=== PATIENT | female | born 1930 | race Caucasian/White ===

== ENCOUNTER 2016-12-19 12:05 | Inpatient (IN) | payer MEDICARE, MEDICAID ==
[~2016-12-19] VITALS: Ht 157.5 cm; Wt 72.2 kg
[2016-12-19 12:08] VITALS: BP 135/38; PULSE 58; RESP 28; O2SAT 93
--- NOTE | 2016-12-19 12:11 | ED.REPORT ---
HPI-General Illness Date of Service December 19, 2016 ED Provider: Ryan Montiel DO Pt is an 86 year old female presenting to the ED via EMS from [facility] due to altered mental status. Associated symptoms include fever, bilateral hand trembling, anxiety, abdominal pain. Nursing Notes Stated Complaint: ALTERED MENTAL STATUS Chief Complaint: General Complaint Nursing Notes Reviewed: Yes Allergies: Uncoded Allergies: PENICILLIN (Allergy, Mild, rash, 12/19/16) Scheduled Acetaminophen (Acetaminophen) 500 Mg Tablet 500 MG PO BID Aspirin (Aspirin) 81 Mg Tablet 81 MG PO DAILY Cholecalciferol (Vitamin D3) (Vitamin D3) 2,000 Unit Tablet 2,000 UNIT PO DAILYWL Cholestyramine (Questran Powder) 378 Gm Powd 9 GM PO DAILY Fluoxetine (Fluoxetine) 40 Mg Capsule 80 MG PO DAILY Latanoprost (Latanoprost) 2.5 Ml Drops 1 GTT BOTH_EYES HS Metoprolol Succinate ER (Metoprolol Succinate ER) 50 Mg Tab.er.24h 50 MG PO DAILY Nitrofurantoin Macrocrystal (Nitrofurantoin Macrocrystal) 50 Mg Capsule 50 MG PO QID Olanzapine (Olanzapine) 20 Mg Tablet 10 MG PO DAILY Olanzapine (Olanzapine) 10 Mg Tablet 5 MG PO BID Potassium Chloride (Potassium Chloride) 10 Meq Tab.er.prt 10 MEQ PO DAILY TAKE WITH FOOD Scheduled PRN Acetaminophen (Acetaminophen) 325 Mg Capsule 650 MG PO Q4H PRN PRN For Pain Furosemide (Furosemide) 20 Mg Tab 20 MG PO DAILY PRN PRN For HYPERtension Lorazepam (Lorazepam Oral Concentrate) 2 Mg/1 Ml Oral.conc 0.25-2 MG PO QID PRN PRN For Anxiety Miscellaneous Medications Lactobacillus Combo No.11 (Probiotic) 1 Each Cap.sprink 1 EACH PO General Time Seen by MD: 12:10 Chief Complaint Altered mental status Hx Obtained From: Patient, EMS Unable to Obtain Hx: Mental status Arrived By: Ambulance Sudden in Onset?: Yes Onset Occurred: Just prior to arrival Symptom Duration: Since onset Location: : Abdomen Quality: Painful Severity: Current: Mild Severity: Maximum: Mild Recent Healthcare: No recent doctor visit, No recent hospitalization Similar Sx Previous: Yes Past Medical History Past Medical History Dementia with anxiety, recurrent UTIs, HTN, glaucoma Past Surgical History unknown Smoking History Unknown if Ever Smoker Ambulatory Status Independent Review of Systems Unable to Obtain ROS Mental status Full Review of Systems Constitutional: Reports: Fever GI: Reports: Abdominal pain Neurologic: Reports: Shaking Psychiatric: Reports: Anxiety Physical Exam Vital Signs Vital Signs Date Time Temp Pulse Resp B/P Pulse Ox O2 Delivery O2 Flow Rate FiO2 12/19/16 12:34 103 18 118/71 97 12/19/16 12:08 36.6 58 28 135/38 93 Room Air Initial VS: Reviewed Head / Eyes: Atraumatic, Normocephalic, PERRL ENT: Mucous membranes moist, Conjunctiva normal, No scleral icterus Neck: Supple, Non-tender, Full range of motion Respiratory: Breath sounds normal, Clear to auscultation, No respiratory distress Extremities: Vascular intact, Neuro intact, No swelling, No tenderness Skin: Warm, Dry, No cyanosis General/Constitutional: Awake Slightly pale Cardiovascular: Heart rate NL Heart Rate / Rhythm: Positive: Irregular rhythm Abdomen: Soft, Non-tender, No guarding, No rebound Bowel Sounds / Distention: Positive: Distention mild Post surgical scars Psychiatric: Affect NL, Mood NL, Not suicidal, Not homicidal, No hallucinations Abnormal Thinking / Perception: Positive: Confused Tremulous and fearful. Interpretation & Diagnostics Lab Results Interpretation Result Diagram: 12/19/16 1220 12/19/16 1220 Test 12/19/16 12:20 12/19/16 12:28 White Blood Count 14.9th/mm3 (3.8-10.1) Red Blood Count 4.07mil/mm3 (3.90-5.20) Hemoglobin 12.3g/dL (12.0-15.6) Hematocrit 37.3% (35.0-46.0) Mean Corpuscular Volume 91.6fL (81-100) Mean Corpuscular Hemoglobin 30.2pg (27.0-35.0) Mean Corpuscular Hemoglobin Concent 33.0% (32.0-37.0) Red Cell Distribution Width 14.2% (12.3-15.4) Platelet Count 266bil/L (150-400) Neutrophils (%) (Auto) 90.5% (40-74) Lymphocytes (%) (Auto) 4.5% (14-46) Monocytes (%) (Auto) 4.3% (4-12) Eosinophils (%) (Auto) 0.3% (0-5) Basophils (%) (Auto) 0.1% (0-3) Sodium Level 139mEq/L (134-144) Potassium Level 3.3mEq/L (3.5-5.2) Chloride Level 100mEq/L (97-108) Carbon Dioxide Level 22mmol/L (18-29) Blood Urea Nitrogen 18mg/dL (8-27) Creatinine 0.69mg/dL (0.57-1.00) Estimat Glomerular Filtration Rate 116mL/min (>59) Glucose Level 122mg/dL (60-99) Lactic Acid Level 1.1mmol/L (0.4-2.0) Calcium Level 9.6mg/dL (8.5-10.1) Magnesium Level 2.0mg/dL (1.6-2.6) Total Bilirubin 0.6mg/dL (0.0-1.2) Aspartate Amino Transf (AST/SGOT) 14U/L (0-50) Alanine Aminotransferase (ALT/SGPT) 13U/L (0-32) Alkaline Phosphatase 63U/L (25-165) Total Protein 7.5g/dL (6.4-8.4) Albumin 4.0g/dL (3.4-5.0) Procalcitonin 0.06ng/mL (0.00-0.08) Hold Richard Top Tube Received (Received) Urine Color Straw (YELLOW) Urine Appearance Turbid (CLEAR,HAZY) Urine pH 7.5 (5.0-8.0) Urine Specific Gamaliel 1.020 (1.003-1.035) Urine Protein 30mg/dL (NEG,TRACE) Urine Glucose (UA) Negativemg/dL (NEGATIVE) Urine Ketones 15mg/dL (NEGATIVE) Urine Occult Blood Moderate (NEGATIVE) Urine Nitrite Positive (NEGATIVE) Urine Bilirubin Negative (NEGATIVE) Urine Urobilinogen Normalmg/dL (NORMAL) Urine Leukocyte Esterase Large (NEGATIVE) Urine RBC 0-2/hpf (0-2) Urine WBC >50/hpf (0-5) Urine Epithelial Cells Occasional/hpf (NONE-MOD) Urine Crystals Triple phosphate Urine Bacteria Many/hpf (NONE-FEW) Urine Hyaline Casts None/lpf (NONE) Urine Granular Casts None seen (NONE SEEN) Urine Waxy Casts None seen (NONE SEEN) Urine Red Blood Cell Casts None seen (NONE SEEN) Urine White Blood Cell Casts None seen (NONE SEEN) Urine Mucus Present (None Seen) Urine Trichomonas None seen (NONE SEEN) Urine Yeast None (NONE SEEN) Urinalysis Comment None Urine Culture Reflexed Indicated ECG Interpretation ECG Interpretation: PACs, nonspecific ST changes. Time: 12:59 Interpreted by: ED physician Normal ECG Interpretation: Normal rate (84), Normal sinus rhythm X-Ray Chest Interpretation Chest Xray Interpretation: IMPRESSION: 1. Cardiomegaly and mild vascular congestion. Please correlate for pulmonary edema. 2. Bibasilar infiltrates (right more than left) may represent atelectasis or developing pneumonia. Aspiration cannot be excluded. Dictated by: Gurmeet Moralez M.D. on 12/19/2016 at 12:23 View: Portable, 1 view Interpretation / Wet Read by: Interpret - Radiologist Re-Eval/Medical Decision Med Decision/Clinical Course Concern for UTI and some sepsis findings. She has leukocytosis and tachycardia. No x-ray looks more like pulmonary edema and her daughter denies that she has had cough or sputum symptoms. Rocephin and azithromycin given after blood cultures. Patient will be admitted. Time of Eval: 14:00 Patient Status: Condition improved Re-Evaluation/Progress Note: Discussed plan for admission. Spoke to daughter and she agrees with plan. Also daughter states she has not seen or heard any signs of pneumonia such as cough or sputum and she frequently visits her mother. Consultation : Referral / Consult Name: Raul Dickey DO Consulted With: Hospitalist Call Returned at: 14:00 Concrete Inspector: Will see patient, Agrees with plan, Accepts admit Counseled Regarding: Diagnosis, Lab results, Need for follow-up, When/why to return to ED Discharge & Departure Primary Impression: Bladder infection Disposition: ADMITTED TO HOSPITAL (ERASED) Discharge Condition All VS Reviewed: Yes Condition: Improved Referrals: Gris Martino (PCP) Corey Attestation Portions of this note were transcribed by Alice White. I, Dr. Montiel personally performed the history, physical exam and medical decision-making; I reviewed and confirmed the accuracy of the information in the transcribed note. Signed by: Corey Villalobos, 12/19/2016 at 1400. copies to: Gris Martino Timothy S DO December 19, 2016 12:11 ALICE WHITE December 19, 2016 12:20
[2016-12-19 12:34] VITALS: BP 118/71; PULSE 103; RESP 18; O2SAT 97
[2016-12-19 12:39] LABS: BASOPHILS % (AUTO) 0.1 % (0-3); EOSINOPHILS % (AUTO) 0.3 % (0-5); MONOCYTES % (AUTO) 4.3 % (4-12); Mean Corpuscular Hemoglobin 30.2 pg (27.0-35.0); Mean Corpuscular Volume 91.6 fL (81-100); NEUTROPHILS % (AUTO) 90.5 % (40-74); Platelet Count 266 bil/L (150-400)
[2016-12-19] MEDS ORDERED: 0.9% Sodium Chloride 1,000 ML IV ONE (12:40)
[2016-12-19] MEDS ORDERED: OLANZapine Zydis ODT 5 mg Tablet PO ONE (12:45)
[2016-12-19 12:49] LABS: APPEARANCE,URINE TURBID (CLEAR,HAZY); COLOR,URINE STRAW (YELLOW); OCCULT BLOOD,URINE MODERATE (NEGATIVE); PH,URINE 7.5 (5.0-8.0); UROBILINOGEN,URINE NORMAL (NORMAL)
[2016-12-19] MEDS ORDERED: cefTRIAXone Inj 2,000 MG in Dextrose 5% Minibag Plus 50 ML IV ONE (12:55)
--- NOTE | 2016-12-19 13:26 | DRSVH ---
PROCEDURE: X-RAY CHEST ONE VIEW, PORTABLE ([id number]) INDICATIONS: hypoxia, AMS TECHNIQUE: One view of the chest was acquired. COMPARISON: None. FINDINGS: Surgical changes and devices: Prior median sternotomy changes are present. Lungs and pleura: Bibasilar infiltrates are evident (right greater than left). The pulmonary vascula ture may be slightly increased. No large effusion or pneumothorax. Mediastinum: Mediastinal contours appear normal. Heart size is mildly enlarged. There is aortic at herosclerosis. Bones and chest wall: No suspicious bony lesions. Overlying soft tissues appear unremarkable. IMPRESSION: 1. Cardiomegaly and mild vascular congestion. Please correlate for pulmonary edema. 2. Bibasilar infiltrates (right more than left) may represent atelectasis or developing pneumonia. Aspiration cannot be excluded. Dictated by: Gurmeet Moralez M.D. on 12/19/2016 at 12:23 Approved by: Gurmeet Moralez M.D. on 12/19/2016 at 12:24
[2016-12-19] MEDS ORDERED: Azithromycin Inj 500 MG in Dextrose 5% w/Vial Mate 250 ML IV ONE (13:40)
[2016-12-19] MEDS ORDERED: NITR50CA PO (14:00)
[2016-12-19] MEDS ORDERED: LATA2.5D6 BOTH_EYES (14:00)
[2016-12-19] MEDS ORDERED: ACET-171 PO (14:00)
[2016-12-19] MEDS ORDERED: OLAN20TA16 PO (14:00)
[2016-12-19] MEDS ORDERED: CHOL200025 PO (14:00)
[2016-12-19] MEDS ORDERED: METO-272 PO (14:00)
[2016-12-19] MEDS ORDERED: ACET325C PO (14:00)
[2016-12-19] MEDS ORDERED: LORA2ORA4 PO (14:00)
[2016-12-19] MEDS ORDERED: FLUO40CA PO (14:00)
[2016-12-19] MEDS ORDERED: ASPI-973 PO (14:00)
[2016-12-19] MEDS ORDERED: OLAN10TA19 PO (14:00)
[2016-12-19] MEDS ORDERED: LACT1CAP73 PO (14:00)
[2016-12-19] MEDS ORDERED: FUR20 PO (14:00)
[2016-12-19] MEDS ORDERED: CHLS378PW PO (14:00)
[2016-12-19] MEDS ORDERED: POTA10TA38 PO (14:00)
[2016-12-19] MEDS ORDERED: Polyethylene Glycol (PEG) 17 Gm Powder PO PRN (14:05)
[2016-12-19] MEDS ORDERED: Alum-Mag Hydrox-Simeth 30 mL Suspension PO PRN (14:05)
[2016-12-19] MEDS ORDERED: Ondansetron 2 mg/mL 2 mL Inj IVPUSH PRN (14:05)
[2016-12-19 14:17] VITALS: BP 122/68; PULSE 73; RESP 18; O2SAT 96
[2016-12-19 14:42] VITALS: BP 154/80; PULSE 55; RESP 19; O2SAT 95
[2016-12-19] MEDS: 0.9% Sodium Chloride 1,000 ML IV SCH (15:09)
--- NOTE | 2016-12-19 15:30 | PCM.HPMED ---
Subjective Date of Service December 19, 2016 Primary Provider: Admitting Physician: Raul Dickey DO Primary Care Physician: Gris Martino Attending Physician: Raul Dickey DO Chief Complaint: Altered mentation History of Present Illness: 86-year-old female past medical history significant for end-stage dementia and recurrent urinary tract infections brought in by EMS from [facility] due to decline in mentation noted over the past few days and more acutely this morning. ER evaluation was significant for evidence of urinary tract infection with a mild leukocytosis prompting admission for further evaluation and treatment of presumed recurrent urinary tract infection. Patient is otherwise medically stable and placed on the hospital floor where my medical evaluation took place. Time of my exam she was accompanied by her daughter who provided the majority of history given patient's impaired cognitive function in the setting of dementia. The daughter notes her mother's decline has been actually a more prolonged process, the past 2 months especially she has been more anxious and demonstrated a decline in verbal functioning, now limited to only a few words much to express her cell phone previously she would have use complete sentences. She is been less involved with other residents of her prison, is involved with bingo and other group activities. Urinary tract infections of been a chronic problem for her mother for many years, and she is repeatedly been treated for them outpatient setting, currently taking Nitrofurantoin for prophylaxis which is apparently not been effective. My evaluation of patient is limited due to her dementia, she does deny any acute pain though she endorses feeling extremely anxious but cannot identify cause. She is tremulous, intermittently tearful, but other times can be calmed and appears relaxed. Review of Systems: Unable to conduct complete review of systems due to patient's underlying dementia Allergies Coded Allergies: strawberry (Verified Allergy, Unknown, Hives, 12/19/16) Uncoded Allergies: PENICILLIN (Allergy, Mild, rash, 12/19/16) Home Medications Pt is an 86 year old female presenting to the ED via EMS from [facility] due to altered mental status. Associated symptoms include fever, bilateral hand trembling, anxiety, abdominal pain. Nursing Notes Stated Complaint: ALTERED MENTAL STATUS Chief Complaint: General Complaint Nursing Notes Reviewed: Yes Allergies: Uncoded Allergies: PENICILLIN (Allergy, Mild, rash, 12/19/16) Scheduled Acetaminophen (Acetaminophen) 500 Mg Tablet 500 MG PO BID Aspirin (Aspirin) 81 Mg Tablet 81 MG PO DAILY Cholecalciferol (Vitamin D3) (Vitamin D3) 2,000 Unit Tablet 2,000 UNIT PO DAILYWL Cholestyramine (Questran Powder) 378 Gm Powd 9 GM PO DAILY Fluoxetine (Fluoxetine) 40 Mg Capsule 80 MG PO DAILY Latanoprost (Latanoprost) 2.5 Ml Drops 1 GTT BOTH_EYES HS Metoprolol Succinate ER (Metoprolol Succinate ER) 50 Mg Tab.er.24h 50 MG PO DAILY Nitrofurantoin Macrocrystal (Nitrofurantoin Macrocrystal) 50 Mg Capsule 50 MG PO QID Olanzapine (Olanzapine) 20 Mg Tablet 10 MG PO DAILY Olanzapine (Olanzapine) 10 Mg Tablet 5 MG PO BID Potassium Chloride (Potassium Chloride) 10 Meq Tab.er.prt 10 MEQ PO DAILY TAKE WITH FOOD Scheduled PRN Acetaminophen (Acetaminophen) 325 Mg Capsule 650 MG PO Q4H PRN PRN For Pain Furosemide (Furosemide) 20 Mg Tab 20 MG PO DAILY PRN PRN For HYPERtension Lorazepam (Lorazepam Oral Concentrate) 2 Mg/1 Ml Oral.conc 0.25-2 MG PO QID PRN PRN For Anxiety Miscellaneous Medications Lactobacillus Combo No.11 (Probiotic) 1 Each Cap.sprink 1 EACH PO PMH Dementia with anxiety, recurrent UTIs, HTN, Questionable congestive heart failure glaucoma Surgical History As per daughter: Heart valve transplant, atrial Bilateral hip transplant Appendectomy Possible cholecystectomy Exploratory laparoscopy for lysis of adhesions Family History Unable to obtain due to patient's dementia Social History Hx Alcohol Use: No Hx Substance Use: No Hx Tobacco Use: No Smoking Status: Unknown if Ever Smoker Living Arrangement: Prison Exam Vital Signs Vital Sign - Last Date Time Temp Pulse Resp B/P Pulse Ox O2 Delivery O2 Flow Rate FiO2 12/19/16 14:42 37.4 55 19 154/80 95 12/19/16 14:23 Room Air General: Alert, Cooperative, Moderate Distress, Other (she is not oriented to place or situation) Eyes: EOMI Mouth: Mucous Membranes Dry Neck: Supple Chest & Lungs: Clear to auscultation & percussion Cardiovascular: Regular Rate/Rhythm Abdomen: Non-tender, Non-distended, No hepatosplenomegaly Extremities: No cyanosis/clubbing/edma bilat Neurological: Other (baseline dementia, diffuse tremor of upper extremities and face. No cogwheeling rigidity noted. No focal findings) Lab and Diagnostics Result Diagram: 12/19/16 1220 12/19/16 1220 Assessment & Plan Review 6-year-old demented female with known recurrent UTIs presenting with altered mentation with evidence of UTI 1. Urinary tract infection - We will treat with Rocephin at this time. 2 g dose provided in the ER will continue on grams daily - Continue intravenous hydration at this time, but with caution given possible history of congestive heart failure. - Urine cultures ordered and pending, as are blood cultures 2. Encephalopathy - The patient suffers from underlying dementia she is reportedly not at baseline in terms of level of alertness - Urinary tract infection may certainly be contributing to this condition - We will continue to monitor changes in mentation with treatment of above noted infection 3. Dementia - This is a chronic condition, patient will be observed closely. No acute changes but this time. - Continue on Zyprexa, Ativan when necessary 4. Congestive heart failure - Patient does not appear to be in a state of acute exacerbation, thus this is only chronic condition. - We will continue metoprolol at home dosage but hold loop diuretic at least overnight in the setting of acute infection. 5. Hypokalemia - We will replete orally - Follow-up exam Pain Evaluation: Adequate Pain Control VTE Mechanical Devices: Intermittant Pneumatic CD Resuscitation Status: DNR/DNI:Do Not Resuscitate/Intubate Time spent 55 minutes Raul Dickey DO December 19, 2016 15:30
[2016-12-19] MEDS: LORazepam Oral Conc 2 mg/mL 30 mL Solution PO PRN (16:25)
--- NOTE | 2016-12-19 17:00 | NUR ---
Solomon Solomon d/c'ed at this time, pt incontinent will monitor brief.
--- NOTE | 2016-12-19 17:29 | NUR ---
Admit Pt admitted from ED to [facility] room 3029, report received. Pt arrived via stretcher and was unable to ambulate on own. Pt arrived with IV running Azithromycin and NS, emerson patent with yellow cloudy odorous urine. Pt is unable to verbalize needs, daughter at bedside providing history. Pt became agitated and ativan oral tristen was given, pt become relaxed. Will continue to monitor, intentional rounding.
[2016-12-19 20:40] VITALS: BP 145/78; PULSE 55; RESP 18; O2SAT 96
--- NOTE | 2016-12-20 05:18 | NUR ---
Anxiety/Urine Retention: Pt experiencing high anxiety x1, oral suspension Ativan ordered from MD but pharmacy currently out of stock; pt unable to swallow PO at this time, new order for IV Ativan x1; effective. Pt bladder scanned 670 ml urine retained; new order for in/out cath x1; effective. Pt slept most of the night, due to dementia pt unable to follow commands and/or answer questions appropriately. Pt shows no s/s of pain or respiratory distress.
[2016-12-20 05:21] VITALS: BP 174/79; PULSE 69; RESP 18; O2SAT 97
[2016-12-20] MEDS: 0.9% Sodium Chloride 1,000 ML IV SCH (07:38)
[2016-12-20 07:48] LABS: BASOPHILS % (AUTO) 0.3 % (0-3); EOSINOPHILS % (AUTO) 2.4 % (0-5); MONOCYTES % (AUTO) 6.7 % (4-12); Mean Corpuscular Hemoglobin 30.7 pg (27.0-35.0); Mean Corpuscular Volume 92.5 fL (81-100); NEUTROPHILS % (AUTO) 78.5 % (40-74); Platelet Count 218 bil/L (150-400)
[2016-12-20] MEDS: Cholestyramine Resin Powder 4 Gm Packet PO SCH (08:27)
[2016-12-20] MEDS: MeTOProlol XL 50 mg ER24 Tablet PO SCH (08:27)
--- NOTE | 2016-12-20 10:37 | NUR ---
Bladder scan Pt has had very little urine output this am, post void bladder scan 608 cc @ 1030, aware, awaiting orders
--- NOTE | 2016-12-20 12:02 | NUR ---
Social Work: Initial Assessment Data: Pt is an 86 y/o female admitted for sepsis, UTI. Pt's PCP is Dr Martino, pt's insurance is Medicare with [employer] supp. EMR reviewed. Readmit score is 5, high. Pt has dementia. FOIL SPINNER called [facility] where pt lives, spoke with WILLIAM Goddard. Nitza states that pt has lived there since 06/12/2014. No stairs, pt does not drive, uses a wheel chair at baseline, has hx of HH for PT, no hx of SNF, no LTC insurance or VA benefits. Pt is not a caregiver. RN with [facility] states they likely will not need to come and reassess pt before d/c back. FO[employer]NER will follow up with pt's daughter regarding d/c plan. PT is pending. FOIL SPINNER will continue to follow. Assessment: Pt with dementia, wheel chair at baseline. Plan: RN with [facility] states they likely will not need to come and reassess pt before d/c back. [employer]NER will follow up with pt's daughter regarding d/c plan. PT is pending. FO[employer]NER will continue to follow. RAZA Pak Addendum: 12/20/16 at 1209 by JOSH RAMAN Amended: Links added.
[2016-12-20] MEDS: cefTRIAXone Inj 1,000 MG in Dextrose 5% Minibag Plus 50 ML IV SCH (12:15)
--- NOTE | 2016-12-20 12:30 | PCM.PNMED ---
Subjective Date of Service December 20, 2016 Subjective Patient is seen and examined at bedside accompanied by daughter. She was more sedated this morning due to need for IV Ativan for agitation due to oral Ativan not being available. She responded more significantly to this unanticipated becoming very sedate, but this has since resolved and patient is back to her baseline which I observed on admission which is highly anxious, moderately confused but consolable with verbal reassurance. She denies any acute pain is shortness of breath or palpitations. She continued to complain of urinary frequency has been noted to have been retaining fluid through the morning, Exam Vital Signs Vital Sign - Last Date Time Temp Pulse Resp B/P Pulse Ox O2 Delivery O2 Flow Rate FiO2 12/20/16 05:21 36.8 69 18 174/79 97 12/19/16 14:23 Room Air Intake and Output 12/19/16 12/19/16 12/20/16 Cumulative From/Thru 15:00 23:00 07:00 12/19/16 12:45 - 12/20/16 06:39 Intake Total 1000 ml 364 ml 707 ml 2071 ml Output Total 675 ml 800 ml 1475 ml Balance 1000 ml -311 ml -93 ml 596 ml Intake Oral 0 ml 0 ml 0 ml IV Total 1000 ml 364 ml 707 ml 2071 ml Output Urine Total 675 ml 800 ml 1475 ml # Bowel Movements 0 0 Exam General: Alert, Cooperative, Moderate Distress, she is not oriented to place or situation. Eyes: EOMI Mouth: Mucous Membranes Dry Neck: Supple Chest & Lungs: Clear to auscultation & percussion Cardiovascular: Regular Rate/Rhythm Abdomen: Non-tender, Non-distended, No hepatosplenomegaly Extremities: No cyanosis/clubbing/edema bilat Neurological: baseline dementia, diffuse tremor of upper extremities and face. No cogwheeling rigidity noted. No focal findings IVs and Medications Medications Reviewed: Medications were reviewed in detail Lab and Diagnostics Result Diagram: 12/20/1671612/20/16716 Assessment & Plan 86-year-old demented female with known recurrent UTIs presenting with altered mentation with evidence of UTI #. Urinary tract infection - We will treat with Rocephin at this time. 2 g dose provided in the ER will continue on 1 gram IV daily pending urine culture and sensitivities -We will discontinue intravenous fluids given good oral intake and urinary frequency complaints - Urine cultures ordered and pending, as are blood cultures #Urinary retention - Likely contributing factor to patient's recurrent urinary tract infections - We will trial Flomax to aid in complete voiding - Follow-up renal ultrasound #: Patient is. Encephalopathy - The patient suffers from underlying dementia she is reportedly not at baseline in terms of level of alertness - Urinary tract infection may certainly be contributing to this condition - We will continue to monitor changes in mentation with treatment of above noted infection #. Dementia - This is a chronic condition, patient will be observed closely. No acute changes but this time. - Continue on Zyprexa, Ativan when necessary #. Congestive heart failure - Patient does not appear to be in a state of acute exacerbation, thus this is only chronic condition. - We will continue metoprolol at home dosage but hold loop diuretic at least overnight in the setting of acute infection. #. Hypokalemia - We will replete orally - Follow-up exam Pain Evaluation: Adequate Pain Control VTE Mechanical Devices: Intermittant Pneumatic CD Resuscitation Status: DNR/DNI:Do Not Resuscitate/Intubate Time spent 35 minutes Raul Dickey DO December 20, 2016 12:30
[2016-12-20] MEDS: LORazepam Oral Conc 2 mg/mL 30 mL Solution PO PRN ×2 (13:20→20:16)
[2016-12-20 13:43] VITALS: BP 163/83; PULSE 80; RESP 20; O2SAT 94
--- NOTE | 2016-12-20 15:03 | DRSVH ---
PROCEDURE: US RENAL SONOGRAM INDICATIONS: eval for urine retention TECHNIQUE: Real-time scanning was performed of the kidneys and bladder, with image documentation. COMPARISON: None. FINDINGS: Kidneys: Kidneys are normal in size. Right kidney measures 10.6 cm long; left kidney measures 10.5 cm long. Right renal cortical thickness is 1.0 cm; left renal cortical thickness is 1.0 cm. Renal c ortical echotexture is normal. No hydronephrosis or nephrolithiasis. No suspicious solid mass lesio ns. Bladder: Bladder is grossly normal. Right ureteral jet is present. Patient was unable to void in p ost void residual estimated at 520 cc. Miscellaneous: No free pelvic fluid. IMPRESSION: 1. Normal kidneys and no hydronephrosis is seen. 2. 525 cc PVR. Dictated by: Ray Calderon [facility] Interpreted: Miguel Turner MD on 12/20/2016 at 15:02 Transcribed by: MADDIE on 12/20/2016 at 15:03 Approved by: Miguel Turner M.D. on 12/20/2016 at 17:18
--- NOTE | 2016-12-20 17:54 | NUR ---
URINARY CATHETER INSERT Post void bladder scan 525 ccs, made aware and ordered a emerson catheter if bladder scan was above 550. At 1735, post void bladder scan was 629 ccs, a 16fr emerson catheter was placed at 1745.
--- NOTE | 2016-12-20 22:00 | NUR ---
Anxiety Pt's daughter left at beginning of shift. Pt became very anxious when daughter left the room, pt calling out for her. Pt trying to get out of bed. Pt pulling at cathert tubing. Pt calms down some when nursing staff sit in room and hold her hand. Medicated pt with 1 mg oral ativan. Pt continues to be anxious. Pt calming down when someone in room with her, pt hallucinating at times, pt telling nursing staff that her is in the room. Sitter to come in at 2300.
[2016-12-20 22:11] VITALS: BP 139/89; PULSE 74; RESP 20; O2SAT 93
[2016-12-21] MEDS: LORazepam Oral Conc 2 mg/mL 30 mL Solution PO PRN (04:12)
[2016-12-21 05:37] VITALS: BP 145/80; PULSE 72; RESP 20; O2SAT 95
[2016-12-21 05:55] LABS: BASOPHILS % (AUTO) 0.2 % (0-3); EOSINOPHILS % (AUTO) 0.9 % (0-5); MONOCYTES % (AUTO) 6.6 % (4-12); Mean Corpuscular Hemoglobin 30.1 pg (27.0-35.0); Mean Corpuscular Volume 90.5 fL (81-100); NEUTROPHILS % (AUTO) 85.4 % (40-74); Platelet Count 225 bil/L (150-400)
[2016-12-21] MEDS: MeTOProlol XL 50 mg ER24 Tablet PO SCH (08:15)
[2016-12-21] MEDS: Cholestyramine Resin Powder 4 Gm Packet PO SCH (08:16)
[2016-12-21] MEDS ORDERED: KCl 40 mEq/D5W 500 mL 40 MEQ in IV Premix 1 EACH IV ONE (10:50)
--- NOTE | 2016-12-21 10:50 | PCM.PNMED ---
Subjective Date of Service December 21, 2016 Subjective Patient remains demented overlying hospital delirium, required one-on-one sitter overnight. She is frequently anxious and requires nearly continuous calming to help her to relax. Sleep seem poor last night. Through afternoon and evenings yesterday she was having difficulty voiding persistently elevated postvoid residuals finally prompting placement of Solomon catheter. She denies any pains however, but frequently expresses desire to void. Exam Vital Signs Vital Sign - Last Date Time Temp Pulse Resp B/P Pulse Ox O2 Delivery O2 Flow Rate FiO2 12/21/16 05:37 36.4 72 20 145/80 95 12/19/16 14:23 Room Air Intake and Output 12/20/16 12/20/16 12/21/16 Cumulative From/Thru 15:00 23:00 07:00 12/19/16 12:45 - 12/21/16 05:58 Intake Total 320 ml 480 ml 240 ml 3111 ml Output Total 1225 ml 1700 ml 4400 ml Balance 320 ml -745 ml -1460 ml -1289 ml Intake Oral 480 ml 240 ml 720 ml IV Total 320 ml 2391 ml Output Urine Total 1225 ml 1700 ml 4400 ml # Bowel Movements 0 Exam General: Alert, Cooperative, mild Distress and anxious, she is not oriented to place or situation. Eyes: EOMI Mouth: Mucous Membranes moist Neck: Supple Chest & Lungs: Clear to auscultation & percussion Cardiovascular: Regular Rate/Rhythm Abdomen: Non-tender, Non-distended, No hepatosplenomegaly Extremities: No cyanosis/clubbing/edema bilat Neurological: baseline dementia, diffuse tremor of upper extremities and face. No cogwheeling rigidity noted. No focal findings IVs and Medications Medications Reviewed: Medications were reviewed in detail Lab and Diagnostics Result Diagram: 12/21/1652912/21/16529 Assessment & Plan 86-year-old demented female with known recurrent UTIs presenting with altered mentation with evidence of UTI #. Urinary tract infection - We will treat with Rocephin at this time. 2 g dose provided in the ER will continue on 1 gram IV daily. - Urine sensitivity confirms Rocephin as an effective antibiotic therapy. - We will discontinue intravenous fluids given good oral intake and urinary frequency complaints #Urinary retention - Likely contributing factor to patient's recurrent urinary tract infections - We will trial Flomax to aid in complete voiding - Renal ultrasound performed and demonstrated no evidence of hydronephrosis or primary renal pathology. - Solomon catheter has been placed at this time given persistent urinary retention , given patient's recurrent urine infections this may be a more chronic condition that initially recognized. - Case have been discussed with urologists Dr. Golden over phone, who recommends outpatient consultation if retention persists #: Patient is. Encephalopathy - The patient suffers from underlying dementia she is reportedly not at baseline in terms of level of alertness - Urinary tract infection may certainly be contributing to this condition - We will continue to monitor changes in mentation with treatment of above noted infection #. Dementia - This is a chronic condition, patient will be observed closely. No acute changes but this time. - Continue on Zyprexa, Ativan when necessary #. Congestive heart failure - Patient does not appear to be in a state of acute exacerbation, thus this is only chronic condition. - We will continue metoprolol at home dosage but hold loop diuretic at least overnight in the setting of acute infection. #. Hypokalemia - Oral repletion has been difficult - Running IV supplementation today , addition to increased oral daily supplementation - Follow-up levels in a.m.. Pain Evaluation: Adequate Pain Control GI Prophylaxis: Not indicated VTE Mechanical Devices: Intermittant Pneumatic CD Resuscitation Status: DNR/DNI:Do Not Resuscitate/Intubate Time spent 30 minutes Raul Dickey DO December 21, 2016 10:50
--- NOTE | 2016-12-21 12:05 | NUR ---
Evaluation completed. Please go to "Notes" then click on "Assessments and Notes" (bottom left corner of screen). Then select appropriate discipline tab on top of screen.
[2016-12-21] MEDS: cefTRIAXone Inj 1,000 MG in Dextrose 5% Minibag Plus 50 ML IV SCH (12:11)
[2016-12-21 14:13] VITALS: BP 146/67; PULSE 80; RESP 22; O2SAT 94
[2016-12-21 22:07] VITALS: BP 154/69; PULSE 88; RESP 24; O2SAT 92
[2016-12-22 05:29] VITALS: BP 149/83; PULSE 76; RESP 22; O2SAT 94
--- NOTE | 2016-12-22 06:18 | NUR ---
Mentation Pt sleeping through shift. Pt difficult to arouse, needing repeated stimuli. Pt opening eyes briefly then falling back asleep. HS medications held. Sitter at bedside.
[2016-12-22 07:16] LABS: BASOPHILS % (AUTO) 0.2 % (0-3); EOSINOPHILS % (AUTO) 3.7 % (0-5); MONOCYTES % (AUTO) 8.8 % (4-12); Mean Corpuscular Hemoglobin 30.2 pg (27.0-35.0); Mean Corpuscular Volume 90.9 fL (81-100); NEUTROPHILS % (AUTO) 77.1 % (40-74); Platelet Count 215 bil/L (150-400)
--- NOTE | 2016-12-22 08:30 | NUR ---
Mentation Pt unable to respond to questions, able to take medication orally crushed in applesauce. Daughter at bedside. Care continues.
[2016-12-22] MEDS: Potassium Chloride 20 mEq SR Tablet PO SCH (09:46)
[2016-12-22] MEDS: MeTOProlol XL 50 mg ER24 Tablet PO SCH (09:47)
[2016-12-22] MEDS: Cholestyramine Resin Powder 4 Gm Packet PO SCH (09:47)
[2016-12-22 11:41] VITALS: BP 132/75; PULSE 81; RESP 23; O2SAT 93
--- NOTE | 2016-12-22 11:45 | NUR ---
Social Work: Readiness for d/c Data: Pt is on day 3 of hospitalization. EMR reviewed. MD states in rounds that pt likely ready to d/c in 1-2 days. BANK VAULT CLERK called [facility] who requested clinicals. They stated that they do not have anyone to complete an assessment until Sunday, but that they would be able to take pt over the weekend if she discharges at that time. UR specialist requested to send clinicals. BANK VAULT CLERK will continue to follow. Assessment: Pt from memory care facility. Plan: Pt will d/c back to [facility] when medically stable. BANK VAULT CLERK will continue to follow. RAZA Pak
--- NOTE | 2016-12-22 11:53 | NUR ---
Faxed clinicals to [facility] per [employer] [phone]
[2016-12-22] MEDS: cefTRIAXone Inj 1,000 MG in Dextrose 5% Minibag Plus 50 ML IV SCH (12:36)
--- NOTE | 2016-12-22 13:03 | PCM.PNMED ---
Subjective Date of Service December 22, 2016 Subjective Patient continues to demonstrate improved mentation though she suffers from baseline dementia. He is less anxious and restless in bed, not in any apparent distress as she was on day of admission. The catheter remained in placed yesterday did not seem to cause any significant discomfort. Patient slept well last night for the first time since hospitalization. She is again accompanied by daughter during my evaluation, states she is in no distress or pain, and her appearance is consistent with this statement. Exam Vital Signs Vital Sign - Last Date Time Temp Pulse Resp B/P Pulse Ox O2 Delivery O2 Flow Rate FiO2 12/22/16 11:41 36.5 81 23 132/75 93 Room Air Intake and Output 12/21/16 12/21/16 12/22/16 Cumulative From/Thru 15:00 23:00 07:00 12/19/16 12:45 - 12/22/16 05:36 Intake Total 1932 ml 0 ml 5043 ml Output Total 850 ml 475 ml 5725 ml Balance 1082 ml -475 ml -682 ml Intake Oral 1387 ml 0 ml 2107 ml IV Total 545 ml 2936 ml Output Urine Total 850 ml 475 ml 5725 ml # Bowel Movements 0 0 Exam General: Alert, Cooperative, mild Distress and anxious, she is not oriented to place or situation. Eyes: EOMI Mouth: Mucous Membranes moist Neck: Supple Chest & Lungs: Clear to auscultation & percussion Cardiovascular: Regular Rate/Rhythm Abdomen: Non-tender, Non-distended, No hepatosplenomegaly Extremities: No cyanosis/clubbing/edema bilat Neurological: baseline dementia, diffuse tremor of upper extremities and face. No cogwheeling rigidity noted. No focal findings : Solomon catheter in place draining yellow urine IVs and Medications Medications Reviewed: Medications were reviewed in detail Lab and Diagnostics Result Diagram: 12/22/16 0650 12/22/16 0650 Assessment & Plan 86-year-old demented female with known recurrent UTIs presenting with altered mentation with evidence of UTI #. Urinary tract infection - We will treat with Rocephin at this time. 2 g dose provided in the ER will continue on 1 gram IV daily. - Urine sensitivity confirms Rocephin as an effective antibiotic therapy. - We will discontinue intravenous fluids given good oral intake and urinary frequency complaints #Urinary retention - Likely contributing factor to patient's recurrent urinary tract infections - We will trial Flomax to aid in complete voiding - Renal ultrasound performed and demonstrated no evidence of hydronephrosis or primary renal pathology. - Solomon catheter has been placed at this time given persistent urinary retention , given patient's recurrent urine infections this may be a more chronic condition that initially recognized. - Plan to remove Solomon catheter today, with frequent voiding prompted by putting patient on hospital commode at least every 2-3 hours through the day, and reassess with post void residuals. - Based on findings today, we will hopefully be considering discharge tomorrow on oral antibiotic therapy for urinary tract infection without need for retained Solomon catheter. However should patient persistently demonstrated urinary retention, may need to begin to consider the possibility of discharge with indwelling Solomon. d. - Case have been discussed with urologists Dr. Golden over phone, who recommends outpatient consultation if retention persists #: Patient is. Encephalopathy - The patient suffers from underlying dementia she is reportedly not at baseline in terms of level of alertness - Urinary tract infection may certainly be contributing to this condition - We will continue to monitor changes in mentation with treatment of above noted infection #. Dementia - This is a chronic condition, patient will be observed closely. No acute changes but this time. - Continue on Zyprexa, Ativan when necessary #. Congestive heart failure - Patient does not appear to be in a state of acute exacerbation, thus this is only chronic condition. - We will continue metoprolol at home dosage but hold loop diuretic at least overnight in the setting of acute infection. #. Hypokalemia - Oral repletion has been difficult , following IV repletion patient is actually within normal limits this morning. -Changed to higher oral dosage given recent need for IV repletion in addition, this higher dosage is actually crushable and easier to administer the patient. - Follow-up levels in a.m.. Pain Evaluation: Adequate Pain Control GI Prophylaxis: Not indicated VTE Mechanical Devices: Intermittant Pneumatic CD Resuscitation Status: DNR/DNI:Do Not Resuscitate/Intubate Time spent 30 minutes Raul Dickey DO December 22, 2016 13:03
--- NOTE | 2016-12-22 15:03 | NUR ---
DC Solomon Solomon DC'd at 1505, pt tolerated well. Pt on BSC for bladder training. Care continues.
[2016-12-22 16:11] VITALS: BP 126/67; PULSE 88; RESP 20; O2SAT 94
[2016-12-22 20:29] VITALS: BP 115/71; PULSE 75; RESP 19; O2SAT 95
--- NOTE | 2016-12-22 23:21 | NUR ---
NEURO/ACTIVITY/ Pt asleep, difficult to keep attention/awake during initial assessment and evening medication pass. Evening PO medication held. Later in shift, pt attempting to get OOB, appears very anxious, unable to communicate clearly. Pt assisted to BSC w/ 2 person assist. Pt did not void. Pt bladder scanned x 2, before and after assisted to BSC. No change, bladder scan amts ~100ml. Pt encouraged to drink PO fluids when awake. Pt very anxious, but stays awake, evening PO zyprexa given. Pt able to swallow pill, crushed in applesauce, no difficulties. Pt assisted back into bed, calmed down, and went back to sleep. Continue to monitor. Call light in reach. Bed alarm on. Intentional rounding.
[2016-12-23 04:27] VITALS: BP 155/73; PULSE 88; RESP 20; O2SAT 94
[2016-12-23] MEDS: LORazepam Oral Conc 2 mg/mL 30 mL Solution PO PRN ×2 (05:02→14:32)
--- NOTE | 2016-12-23 05:06 | NUR ---
ANXIETY During end of shift VS, pt shaky, crying, unable to express needs. Pts brief dry. Pt bladder scanned, 156ml. Pt repositioned. Pt still appears very anxious. Pt give ice chips as she states "no" to being able to drink from a straw at this time. Pt given prn Ativan oral concentrate. RN stayed in room for awhile, as pt calmer, stops crying when her hand is held. Pt eventually able to take a few sips of water. Continue to monitor.
[2016-12-23 06:22] LABS: BASOPHILS % (AUTO) 0.2 % (0-3); EOSINOPHILS % (AUTO) 3.7 % (0-5); MONOCYTES % (AUTO) 7.6 % (4-12); Mean Corpuscular Hemoglobin 30.4 pg (27.0-35.0); Mean Corpuscular Volume 91.7 fL (81-100); Platelet Count 241 bil/L (150-400)
[2016-12-23] MEDS: Potassium Chloride 20 mEq SR Tablet PO SCH (08:24)
[2016-12-23] MEDS: MeTOProlol XL 50 mg ER24 Tablet PO SCH (08:24)
[2016-12-23] MEDS: Cholestyramine Resin Powder 4 Gm Packet PO SCH (08:24)
[2016-12-23 09:03] VITALS: BP 142/66; PULSE 76; RESP 22; O2SAT 93
[2016-12-23] MEDS: cefTRIAXone Inj 1,000 MG in Dextrose 5% Minibag Plus 50 ML IV SCH (11:16)
--- NOTE | 2016-12-23 12:06 | PCM.PNMED ---
Subjective Date of Service December 23, 2016 Subjective Patient remains intermittently anxious but had more lucid intervals yesterday afternoon. She is able to void at times effectively, minimal postvoid residual remaining, alert appears in increasing anxiety she tends to forget to bear down and does not void completely leading to urinary incontinence when lying in bed in addition to urinary retention. Patient medically however is overall stable. Her Myoview is morning she is only mildly anxious but describes no pain and has no acute concerns. Daughter was not present for my interview but did discuss patient later, main concern is for continued success with voiding and ideally not needing Solomon catheter on discharge. Exam Vital Signs Vital Sign - Last Date Time Temp Pulse Resp B/P Pulse Ox O2 Delivery O2 Flow Rate FiO2 12/23/16 09:03 37.0 76 22 142/66 93 Room Air Intake and Output 12/22/16 12/22/16 12/23/16 Cumulative From/Thru 15:00 23:00 07:00 12/19/16 12:45 - 12/23/16 06:04 Intake Total 444 ml 200 ml 5687 ml Output Total 200 ml 0 ml 5925 ml Balance 244 ml 200 ml -238 ml Intake Oral 444 ml 200 ml 2751 ml IV Total 2936 ml Output Urine Total 200 ml 0 ml 5925 ml # Bowel Movements 0 Exam General: Alert, Cooperative, mild Distress and anxious, she is not oriented to place or situation. Eyes: EOMI Mouth: Mucous Membranes moist Cardiovascular: Regular Rate/Rhythm Abdomen: Non-tender, Non-distended, No hepatosplenomegaly Extremities: No cyanosis/clubbing/edema bilat Neurological: baseline dementia, diffuse tremor of upper extremities and face. No cogwheeling rigidity noted. No focal findings : Solomon catheter has been removed IVs and Medications Medications Reviewed: Medications were reviewed in detail Lab and Diagnostics Result Diagram: 12/23/1604 12/23/16 06 Assessment & Plan 86-year-old demented female with known recurrent UTIs presenting with altered mentation with evidence of UTI #. Urinary tract infection - We will treat with Rocephin at this time. 2 g dose provided in the ER will continue on 1 gram IV daily. - Urine sensitivity confirms Rocephin as an effective antibiotic therapy. - We will discontinue intravenous fluids given good oral intake and urinary frequency complaints #Urinary retention - Likely contributing factor to patient's recurrent urinary tract infections - We will continue trial Flomax to aid in complete voiding - Renal ultrasound performed and demonstrated no evidence of hydronephrosis or primary renal pathology. - Solomon catheter was placed on 2 occasions given persistent urinary retention. Patient's recurrent urine infections this may be a more chronic condition that initially recognized. - , Continue voiding trial, she appears to have been met with variable success mainly based on patient's level of agitation and anxiety. Continue routine prompting for urination and measurement of 4 short individuals to determine if her placement of Solomon catheter will be needed prior to discharge. - Case have been discussed with urologists Dr. Golden over phone, who recommends outpatient consultation if retention persists #: Patient is. Encephalopathy - The patient suffers from underlying dementia she is reportedly not at baseline in terms of level of alertness - Urinary tract infection may certainly be contributing to this condition - We will continue to monitor changes in mentation with treatment of above noted infection #. Dementia - This is a chronic condition, patient will be observed closely. No acute changes but this time. - Continue on Zyprexa, Ativan when necessary #. Congestive heart failure - Patient does not appear to be in a state of acute exacerbation, thus this is only chronic condition. - We will continue metoprolol at home dosage but hold loop diuretic at least overnight in the setting of acute infection. #. Hypokalemia - Oral repletion has been difficult , following IV repletion patient is actually within normal limits this morning. -Changed to higher oral dosage given recent need for IV repletion in addition, this higher dosage is actually crushable and easier to administer the patient. - Potassium has remained stable condition over past couple of days without need for completion. Pain Evaluation: Adequate Pain Control GI Prophylaxis: Not indicated VTE Mechanical Devices: Intermittant Pneumatic CD Resuscitation Status: DNR/DNI:Do Not Resuscitate/Intubate Time spent 25 minutes Raul Dickey DO December 23, 2016 12:06
--- NOTE | 2016-12-23 17:09 | NUR ---
Anxiety Pt has been anxious all day, given Ativan and scheduled Olanzapine with no relief. Pt isn't easily redirected, a doll was used with little help. Will continue to monitor.
--- NOTE | 2016-12-23 17:10 | NUR ---
Voiding Pt has not voided all day, until now at which 100 mls voided, with a post residual of 650mls. Pt has been monitor and has been bladder scanned twice, 296 this am, then 350 at 1345, now 650. notified, wants to wait 1 hour, if pt not voided then will emerson catheter pt for urinary retention. Family has prompted pt to take in PO fluids, approx 800mls. Will continue to monitor.
[2016-12-23 17:37] VITALS: BP 156/77; PULSE 60; RESP 21; O2SAT 94
--- NOTE | 2016-12-23 18:51 | NUR ---
Urinary Catheter Insertion Catheter placed at this time for urinary retention, per MD order.
[2016-12-23 21:54] VITALS: BP 129/75; PULSE 64; RESP 18; O2SAT 94
[2016-12-24] MEDS: LORazepam Oral Conc 2 mg/mL 30 mL Solution PO PRN ×4 (01:30→14:36)
--- NOTE | 2016-12-24 01:47 | NUR ---
Anxiety Pt had and episode of anxiety attack as evidence by tearful crying, and wanting to get out of bed. Administered HS Olanzapine and Ativan conc PRN. Will continue to monitor.
[2016-12-24] MEDS ORDERED: LORazepam Oral Conc 2 mg/mL 30 mL Solution PO ONE (05:25)
[2016-12-24 05:26] VITALS: BP 134/65; PULSE 69; RESP 22; O2SAT 90
[2016-12-24] MEDS: Potassium Chloride 20 mEq SR Tablet PO SCH (08:58)
[2016-12-24] MEDS: MeTOProlol XL 50 mg ER24 Tablet PO SCH (08:58)
[2016-12-24] MEDS: Cholestyramine Resin Powder 4 Gm Packet PO SCH (08:59)
--- NOTE | 2016-12-24 10:18 | NUR ---
[facility] signed
[2016-12-24] MEDS: cefTRIAXone Inj 1,000 MG in Dextrose 5% Minibag Plus 50 ML IV SCH (11:28)
--- NOTE | 2016-12-24 12:02 | PCM.DC.MED ---
Discharge Summary Date of Service December 24, 2016 Dates of Hospitalization Date of Hospital Admission December 19, 2016 at 14:06 Date of Discharge: December 24, 2016 Providers: Admitting Physician: Raul Dickey DO Primary Care Physician: rGis Martino Attending Physician: Raul Dickey DO Diagnosis at Time of Discharge Diagnosis at Time of Discharge 1. Recurrent UTI 2. Urinary retention 3. Dementia Brief History 86-year-old female past medical history significant for end-stage dementia and recurrent urinary tract infections brought in by EMS from [facility] due to decline in mentation noted over the past few days and more acutely this morning. ER evaluation was significant for evidence of urinary tract infection with a mild leukocytosis prompting admission for further evaluation and treatment of presumed recurrent urinary tract infection. Patient is otherwise medically stable and placed on the hospital floor where my medical evaluation took place. Time of my exam she was accompanied by her daughter who provided the majority of history given patient's impaired cognitive function in the setting of dementia. The daughter notes her mother's decline has been actually a more prolonged process, the past 2 months especially she has been more anxious and demonstrated a decline in verbal functioning, now limited to only a few words much to express her cell phone previously she would have use complete sentences. She is been less involved with other residents of her residential, is involved with bingo and other group activities. Urinary tract infections of been a chronic problem for her mother for many years, and she is repeatedly been treated for them outpatient setting, currently taking Nitrofurantoin for prophylaxis which is apparently not been effective. My evaluation of patient is limited due to her dementia, she does deny any acute pain though she endorses feeling extremely anxious but cannot identify cause. She is tremulous, intermittently tearful, but other times can be calmed and appears relaxed. Hospital Course #. Urinary tract infection - We will treat with Rocephin at this time. 2 g dose provided in the ER will continue on 1 gram IV daily. - Urine sensitivity confirms Rocephin as an effective antibiotic therapy. - We discontinued intravenous fluids given good oral intake on day 2 of hospitalization - At time of discharge patient appeared improving clinically , no evidence of worsening infection based on lab studies , leukocytosis resolved . - She was treated with an additional 10 days of Keflex twice a day given recurrent nature infection and indwelling Solomon on discharge . - May be recommended for follow-up urine studies to test her care , and rule out recurrent infection given patient's history #Urinary retention - Likely contributing factor to patient's recurrent urinary tract infections - We will continue trial Flomax to aid in complete voiding - Renal ultrasound performed and demonstrated no evidence of hydronephrosis or primary renal pathology. - Solomon catheter was placed on 2 occasions given persistent urinary retention. Patient's recurrent urine infections this may be a more chronic condition that initially recognized. - , Continue voiding trial, she appears to have been met with variable success mainly based on patient's level of agitation and anxiety. Continue routine prompting for urination and measurement of 4 short individuals to determine if her placement of Solomon catheter will be needed prior to discharge. - In spite of patient's improving delirium and stable dementia, in addition to treatment of above mentioned urinary tract infection, she indeed continue to retain urine in spite of frequent attempts to remind her to void. On day prior to discharge following to attempts for patient to avoid on bedside commode for nearly 20 minutes, she still demonstrated greater than 600 mL of urine retained and bladder following void. As such Solomon catheter needed to be replaced with plan to retain on discharge for follow-up versus a primary care doctor and subsequently with referral to urology for further urodynamic studies in outpatient setting. - Case had been discussed with urologists service delivery management consultant Dr. Golden over phone, who recommended outpatient consultation. Flomax in addition on his recommendation was continued on discharge though did not appear to have sufficient effect as to relieve the need for continued catheterization. #: Acute Encephalopathy: Resolved the time of discharge likely due to a combination of acute infection and hospital delirium contributed to patient's initial destabilization. Baseline dementia unchanged. n #. Dementia - This is a chronic condition, patient will be observed closely. No acute changes but this time. - Continue on Zyprexa, Ativan when necessary #. Congestive heart failure: Remained in stable condition during hospitalization #. Hypokalemia: Repleted orally stable on discharge. ompletion. Exam Vital Signs (Last) Date Time Temp Pulse Resp B/P Pulse Ox O2 Delivery O2 Flow Rate FiO2 12/24/16 11:19 37.5 12/24/16 05:26 69 22 134/65 90 Room Air Exam General: Alert, Cooperative, mild Distress and anxious, she is not oriented to place or situation. Eyes: EOMI Mouth: Mucous Membranes moist Cardiovascular: Regular Rate/Rhythm Abdomen: Non-tender, Non-distended, No hepatosplenomegaly Extremities: No cyanosis/clubbing/edema bilat Neurological: baseline dementia, diffuse tremor of upper extremities and face. No cogwheeling rigidity noted. No focal findings : Solomon catheter has been removed Test 12/19/16 12:20 12/19/16 12:28 12/23/16 06:04 Lactic Acid Level 1.1mmol/L (0.4-2.0) Magnesium Level 2.0mg/dL (1.6-2.6) Total Bilirubin 0.6mg/dL (0.0-1.2) Aspartate Amino Transf (AST/SGOT) 14U/L (0-50) Alanine Aminotransferase (ALT/SGPT) 13U/L (0-32) Alkaline Phosphatase 63U/L (25-165) Total Protein 7.5g/dL (6.4-8.4) Albumin 4.0g/dL (3.4-5.0) Procalcitonin 0.06ng/mL (0.00-0.08) Hold Richard Top Tube Received (Received) Urine Color Straw (YELLOW) Urine Appearance Turbid (CLEAR,HAZY) Urine pH 7.5 (5.0-8.0) Urine Specific Palmer 1.020 (1.003-1.035) Urine Protein 30mg/dL (NEG,TRACE) Urine Glucose (UA) Negativemg/dL (NEGATIVE) Urine Ketones 15mg/dL (NEGATIVE) Urine Occult Blood Moderate (NEGATIVE) Urine Nitrite Positive (NEGATIVE) Urine Bilirubin Negative (NEGATIVE) Urine Urobilinogen Normalmg/dL (NORMAL) Urine Leukocyte Esterase Large (NEGATIVE) Urine RBC 0-2/hpf (0-2) Urine WBC >50/hpf (0-5) Urine Epithelial Cells Occasional/hpf (NONE-MOD) Urine Crystals Triple phosphate Urine Bacteria Many/hpf (NONE-FEW) Urine Hyaline Casts None/lpf (NONE) Urine Granular Casts None seen (NONE SEEN) Urine Waxy Casts None seen (NONE SEEN) Urine Red Blood Cell Casts None seen (NONE SEEN) Urine White Blood Cell Casts None seen (NONE SEEN) Urine Mucus Present (None Seen) Urine Trichomonas None seen (NONE SEEN) Urine Yeast None (NONE SEEN) Urinalysis Comment None Urine Culture Reflexed Indicated White Blood Count 10.1th/mm3 (3.8-10.1) Red Blood Count 3.72mil/mm3 (3.90-5.20) Hemoglobin 11.3g/dL (12.0-15.6) Hematocrit 34.1% (35.0-46.0) Mean Corpuscular Volume 91.7fL (81-100) Mean Corpuscular Hemoglobin 30.4pg (27.0-35.0) Mean Corpuscular Hemoglobin Concent 33.1% (32.0-37.0) Red Cell Distribution Width 14.2% (12.3-15.4) Platelet Count 241bil/L (150-400) Neutrophils (%) (Auto) 79.0% (40-74) Lymphocytes (%) (Auto) 9.3% (14-46) Monocytes (%) (Auto) 7.6% (4-12) Eosinophils (%) (Auto) 3.7% (0-5) Basophils (%) (Auto) 0.2% (0-3) Sodium Level 140mEq/L (134-144) Potassium Level 3.8mEq/L (3.5-5.2) Chloride Level 102mEq/L (97-108) Carbon Dioxide Level 20mmol/L (18-29) Blood Urea Nitrogen 18mg/dL (8-27) Creatinine 0.58mg/dL (0.57-1.00) Estimat Glomerular Filtration Rate 142mL/min (>59) Glucose Level 134mg/dL (60-99) Calcium Level 9.4mg/dL (8.5-10.1) Discharge Medications Discharge Medications Acetaminophen (Acetaminophen) 500 Mg Tablet 500 MG PO BID (Reported) Aspirin (Aspirin) 81 Mg Tablet 81 MG PO DAILY (Reported) Cholecalciferol (Vitamin D3) (Vitamin D3) 2,000 Unit Tablet 2,000 UNIT PO DAILYWL (Reported) Cholestyramine (Questran Powder) 378 Gm Powd 9 GM PO DAILY (Reported) Fluoxetine (Fluoxetine) 40 Mg Capsule 80 MG PO DAILY (Reported) Latanoprost (Latanoprost) 2.5 Ml Drops 1 GTT BOTH_EYES HS (Reported) Metoprolol Succinate ER (Metoprolol Succinate ER) 50 Mg Tab.er.24h 50 MG PO DAILY (Reported) Nitrofurantoin Macrocrystal (Nitrofurantoin Macrocrystal) 50 Mg Capsule 50 MG PO QID (Reported) Olanzapine (Olanzapine) 20 Mg Tablet 10 MG PO DAILY (Reported) Olanzapine (Olanzapine) 10 Mg Tablet 5 MG PO BID (Reported) Potassium Chloride (Potassium Chloride) 10 Meq Tab.er.prt 10 MEQ PO DAILY ( Reported) TAKE WITH FOOD As needed Acetaminophen (Acetaminophen) 325 Mg Capsule 650 MG PO Q4H PRN PRN For Pain ( Reported) Furosemide (Furosemide) 20 Mg Tab 20 MG PO DAILY PRN PRN For HYPERtension ( Reported) Lorazepam (Lorazepam Oral Concentrate) 2 Mg/1 Ml Oral.conc 0.25-2 MG PO QID PRN PRN For Anxiety (Reported) Miscellaneous Medications Lactobacillus Combo No.11 (Probiotic) 1 Each Cap.sprink 1 EACH PO (Reported) Followup Plan Disposition: Discharge back to memory care unit with retained Solomon catheter Plan for follow-up with primary care doctor within 1 week of discharge for further evaluation, and planned referral to urology for further evaluation of urinary retention. Discharge Diet: No restrictions Discharge Activity: Limited until seen by PCP Follow-up Provider: Gris Martino Follow-up with PCP in: 1 week Time spent 45 minutes copies to: Gris Martino Benjamin P DO December 24, 2016 12:02
[2016-12-24] MEDS ORDERED: CEPH-512 PO (12:05)
[2016-12-24] MEDS ORDERED: TAMS0.4C98 PO (12:05)
--- NOTE | 2016-12-24 12:05 | PCM.DIMED ---
Discharge Instructions Date of Service December 24, 2016 Dates of Hospitalization December 19, 2016 at 14:06 Discharge Diagnosis Discharge Diagnosis 1. Recurrent UTI 2. Urinary retention 3. Dementia Diet No restrictions Activity Limited until seen by PCP Patient Instructions Follow-up Provider: Gris Martino Follow-up with PCP in: 1 week Raul Dickey DO December 24, 2016 12:05
--- NOTE | 2016-12-24 12:28 | NUR ---
SW - Discharge Data: Pt is on day 5 of hospitalization for sepsis, UTI. EMR reviewed. states in rounds that pt is medically ready to discharge, will discharge with emerson catheter. [facility] called [facility] to update them. They requested the pt be sent with a emerson catheter change kit and can accept the pt back today. SW contacted [facility] to request [facility] tranportation for the pt, wheelchair van. Pt will be picked up at 1500 today and discharge to [facility] with emerson cath change kit via [employer] wheelchair van. All updated and agreeable to plan. NO further needs assessed. Assessment: Pt from [facility]. Plan: Pt will d/c back to [facility] via wheelchair van at 1500. Pt has emerson cath and will discharge with cath change kit. No further needs assessed. RAZA Schultz
[2016-12-24 13:28] VITALS: BP 147/65; PULSE 75; RESP 22; O2SAT 93
--- NOTE | 2016-12-24 14:53 | NUR ---
DISCHARGE Pt discharged this afternoon at 1445, off unit via w/c transfer. Pt remains confused per baseline with some anxiety, PRN antianxiety medication given prior to dc to assist with transition. Report called to Ira at [facility] ([phone]). IV dc'd intact, all belongings returned. Pt displaying no indicators of pain/discomfort at time of dc. Solomon remains intact, sent a leg bag along with pt.
[2016-12-25] MEDS ORDERED: LORA2ORA4 PO (20:09)
[2016-12-25] MEDS ORDERED: OMEP20CA11 PO (20:09)
[2016-12-25] MEDS ORDERED: CHOL378P PO (20:09)
[2016-12-25] MEDS ORDERED: FLUC150T3 PO (20:09)
[2016-12-25] MEDS ORDERED: ALBU18HF INH (20:09)
[2016-12-25] MEDS ORDERED: LOPE2CAP PO (20:09)
[2016-12-25] MEDS ORDERED: ONDA-53 PO (20:09)
[2016-12-25] MEDS ORDERED: BISA-67 PO (20:09)
[2016-12-25] MEDS ORDERED: ALBU1.25 INHALATION (20:09)
[2016-12-25] MEDS ORDERED: NITR50CA PO (20:09)
== END 2016-12-24 14:50 | DRG 689 ==
LOC: SED 12:05 → MPC 14:06
PROVIDERS: ADMIT Family Medicine; ATTEND Family Medicine
DX: N39.0 Urinary tract infection, site not specified (principal); G93.40 Encephalopathy, unspecified; R33.9 Retention of urine, unspecified; F03.90 Unspecified dementia, unspecified severity, without behavioral disturbance, psychotic disturbance, mood disturbance, and anxiety; F41.9 Anxiety disorder, unspecified; I10 Essential (primary) hypertension; E87.6 Hypokalemia; Z66 Do not resuscitate; Z88.0 Allergy status to penicillin; Z79.82 Long term (current) use of aspirin; Z95.2 Presence of prosthetic heart valve

== ENCOUNTER 2016-12-25 12:13 | Inpatient (IN) | payer MEDICARE, MEDICAID ==
[~2016-12-25] VITALS: Ht 154.9 cm; Wt 65.1 kg
[~2016-12-25 12:13] MED LIST: ACET-171 PO; ACET325C PO; ASPI-973 PO; CEPH-512 PO; CHLS378PW PO; CHOL200025 PO; FLUO40CA PO; FUR20 PO; LACT1CAP73 PO; LATA2.5D6 BOTH_EYES; LORA2ORA4 PO; METO-272 PO; OLAN10TA19 PO; OLAN20TA16 PO; POTA10TA38 PO; TAMS0.4C98 PO
[2016-12-25 12:18] VITALS: BP 126/53; PULSE 78; RESP 17; O2SAT 92
--- NOTE | 2016-12-25 12:25 | ED.REPORT ---
HPI-General Illness Date of Service December 25, 2016 ED Provider: Ryan Montiel DO 86 year old demented female with a history of recurrent UTI's presents to the ER via EMS from her nursing facility due to fever (100.4F) and decreased LOC. Patient was discharged from the hospital here yesterday after being treated for UTI. Staff at nursing facility express concern that her prescribed Keflex isn't working. It is impossible to obtain any history from the patient due to her current mental status. Nursing Notes Stated Complaint: FEVER Chief Complaint: General Complaint Nursing Notes Reviewed: Yes Allergies: Coded Allergies: Penicillins (Verified Allergy, Unknown, 12/25/16) strawberry (Verified Allergy, Unknown, Hives, 12/25/16) Uncoded Allergies: PENICILLIN (Allergy, Mild, rash, 12/19/16) Scheduled Acetaminophen (Acetaminophen) 500 Mg Tablet 500 MG PO BID Aspirin (Aspirin) 81 Mg Tablet 81 MG PO DAILY Cephalexin (Keflex) 500 Mg Capsule 500 MG PO BID Cholecalciferol (Vitamin D3) (Vitamin D3) 2,000 Unit Tablet 2,000 UNIT PO DAILYWL Cholestyramine/Sugar Powder (Cholestyramine/Sugar Powder) 378 Gm Powder 1 DOSE PO QAM Fluoxetine (Fluoxetine) 40 Mg Capsule 80 MG PO DAILY Lactobacillus Combo No.11 (Probiotic) 1 Each Cap.sprink 1 EACH PO QAM Latanoprost (Latanoprost) 2.5 Ml Drops 1 GTT BOTH_EYES HS Lorazepam (Lorazepam Oral Concentrate) 2 Mg/1 Ml Oral.conc 0.5 MG PO QID at 7am, 11a,3p,8p Metoprolol Succinate ER (Metoprolol Succinate ER) 50 Mg Tab.er.24h 50 MG PO DAILY Nitrofurantoin Macrocrystal (Nitrofurantoin Macrocrystal) 50 Mg Capsule 50 MG PO DAILY Olanzapine (Olanzapine) 20 Mg Tablet 10 MG PO DAILYWL Olanzapine (Olanzapine) 10 Mg Tablet 5 MG PO BID Omeprazole (Omeprazole) 20 Mg Capsule.dr 20 MG PO BID Potassium Chloride (Potassium Chloride) 10 Meq Tab.er.prt 10 MEQ PO every other day TAKE WITH FOOD Tamsulosin (Flomax) 0.4 Mg Capsule 0.4 MG PO DAILY Scheduled PRN Acetaminophen (Acetaminophen) 325 Mg Capsule 650 MG PO Q4H PRN PRN For Pain Albuterol Neb Soln (Albuterol Neb Soln) 1.25 Mg/3 Ml Vial.neb 1.25 MG INHALATION Q4H PRN PRN For Shortness of Breath Albuterol Sulfate (Ventolin HFA Inhaler) 200 Puff/18 Gm Inhaler 2 PUFF INH QID PRN PRN For Wheezing Bisacodyl (Dulcolax) 5 Mg Tablet.dr 5 MG PO DAILY PRN PRN For Constipation Fluconazole (Fluconazole) 150 Mg Tablet 150 MG PO once a month PRN PRN yeast infection Loperamide (Loperamide) 2 Mg Capsule 2 MG PO Q4H PRN PRN For Diarrhea or Loose Stool Lorazepam (Lorazepam Oral Concentrate) 2 Mg/1 Ml Oral.conc 0.5 MG PO q4 hours PRN PRN For Anxiety Ondansetron (Ondansetron) 4 Mg Tablet 4 MG PO q6 hours PRN PRN For Nausea General Time Seen by MD: 12:22 Chief Complaint Fever Hx Obtained From: EMS Arrived By: Ambulance Sudden in Onset?: No Recent Healthcare: Recent doctor visit, Recent hospitalization Past Medical History Past Medical History Dementia with anxiety, recurrent UTIs, HTN, glaucoma Past Surgical History unknown Smoking History Unknown if Ever Smoker Ambulatory Status Independent Review of Systems Unable to Obtain ROS Mental status Physical Exam Vital Signs Vital Signs Date Time Temp Pulse Resp B/P Pulse Ox O2 Delivery O2 Flow Rate FiO2 12/25/16 15:34 37 81 33 139/48 93 Room Air 12/25/16 12:18 37.6 78 17 126/53 92 Room Air Initial VS: Reviewed Head / Eyes: Atraumatic, Normocephalic, PERRL Neck: Supple, Non-tender, Full range of motion Abdomen / GI: Soft, Non-tender, No guarding, No rebound, No distention Skin: Warm, Dry, No cyanosis General/Constitutional: Awake, Alert, Well developed Alertness: Positive: Confused ENT: Airway patent Mouth: Positive: Mucous membranes dry Respiratory / Chest: No respiratory distress, No wheezing, No retractions, No stridor Rales / Rhonchi: Positive: Rales diffuse Cardiovascular: Heart rate NL, Regular rhythm, Heart sounds NL, Cap refill not delayed, Peripheral circulation NL Neurologic: Speech NL, No motor deficits, No sensory deficits, CN II - XII intact Mental Status: Positive: Confused Slow to respond. Interpretation & Diagnostics Lab Results Interpretation Result Diagram: 12/26/16 0448 12/25/16 1255 Test 12/25/16 12:28 12/25/16 12:55 Urine Color Yellow (YELLOW) Urine Appearance Hazy (CLEAR,HAZY) Urine pH 6.0 (5.0-8.0) Urine Specific Driscoll 1.025 (1.003-1.035) Urine Protein 30mg/dL (NEG,TRACE) Urine Glucose (UA) Negativemg/dL (NEGATIVE) Urine Ketones 15mg/dL (NEGATIVE) Urine Occult Blood Trace (NEGATIVE) Urine Nitrite Negative (NEGATIVE) Urine Bilirubin Negative (NEGATIVE) Urine Urobilinogen Normalmg/dL (NORMAL) Urine Leukocyte Esterase Small (NEGATIVE) Urine RBC 0-2/hpf (0-2) Urine WBC 11-50/hpf (0-5) Urine Epithelial Cells Occasional/hpf (NONE-MOD) Urine Crystals None seen (NONE SEEN) Urine Bacteria Moderate/hpf (NONE-FEW) Urine Hyaline Casts None/lpf (NONE) Urine Granular Casts None seen (NONE SEEN) Urine Waxy Casts None seen (NONE SEEN) Urine Red Blood Cell Casts None seen (NONE SEEN) Urine White Blood Cell Casts None seen (NONE SEEN) Urine Mucus Present (None Seen) Urine Trichomonas None seen (NONE SEEN) Urine Yeast None (NONE SEEN) Urinalysis Comment None Urine Culture Reflexed Indicated Lactic Acid Level 0.8mmol/L (0.4-2.0) Total Bilirubin 0.5mg/dL (0.0-1.2) Aspartate Amino Transf (AST/SGOT) 18U/L (0-50) Alanine Aminotransferase (ALT/SGPT) 12U/L (0-32) Alkaline Phosphatase 61U/L (25-165) Pro-B-Type Natriuretic Peptide 662pg/mL (0-738) Total Protein 6.5g/dL (6.4-8.4) Albumin 3.4g/dL (3.4-5.0) ECG Interpretation ECG Interpretation: Sinus rhythm, rate 69 PAC's Probable LVH No acute ischemic changes Unchanged from prior Time: 12:41 Interpreted by: ED physician X-Ray Chest Interpretation Chest Xray Interpretation: IMPRESSION: 1. Stable appearance of bilateral opacities and pulmonary vascularity. As previously noted, findings are suggestive of edema with likely superimposed airspace disease such as pneumonia. Dictated by: Irene Sandhu M.D. on 12/25/2016 at 13:10 Approved by: Irene Sandhu M.D. on 12/25/2016 at 13:11 View: Portable, 1 view Interpretation / Wet Read by: Interpret - Radiologist CT Head Interpretation IMPRESSION: 1. No intracranial hemorrhage or mass effect. 2. Moderate to severe cerebral volume loss with enlargement of the ventricles slightly out of proportion to the sulci raising the possibility of normal pressure hydrocephalus. Recommend correlation clinically and further evaluation with a nuclear medicine cisternogram if indicated. 3. Suggestion of hypoattenuation in the right brainstem with evaluation limited due to streak artifact. If clinical concern persists, further evaluation may be obtained with MRI. Dictated by: Maico Fuchs M.D. on 12/25/2016 at 14:15 Approved by: Maico Fuchs M.D. on 12/25/2016 at 14:18 Study: Head CT no contrast Interpretation / Wet Read by: Interpret - Radiologist Re-Eval/Medical Decision Med Decision/Clinical Course Patient presents with recurrent fever and decreased level of consciousness, clinically she is not well-appearing. Her vital signs and labs are overall reassuring. Her x-ray actually looks worse compared to about a week ago though she does not have overt cough or sputum, this along with reported fever at the detention raises the question of whether this is healthcare associated pneumonia. Additionally she still has 11-50 white cells in her urine, this could be a drug resistant bacteria which is not sensitive to Keflex versus colonization. Either way this patient clinically does not look well and does not seem stable for discharge back to the detention. Will plan to admit and broaden the antibiotic coverage. Repeat cultures obtained. Source of Hx: Old records Time of Eval: 13:33 Re-Evaluation/Progress Note: Patient's daughter is now present at bedside. Updated her on the plan of care. Time of Eval: 14:43 Re-Evaluation/Progress Note: Discussed lab and imaging results and need for admission. Daughter understands and agrees to the plan. All other questions addressed. Consultation #1: Referral / Consult Name: Kailee Balderas DO Consulted With: Hospitalist Call Returned at: 16:05 Note: will call back Consultation #2: Referral / Consult Name: Ruben Lei MD Consulted With: Hospitalist Call Returned at: 17:00 Air Brush Decorator: Will see patient, Agrees with eval, Agrees with plan, Accepts admit Note: Will put in admit orders now. Counseled Regarding: Diagnosis, Lab results, Need for admission Discharge & Departure Primary Impression: Healthcare associated bacterial pneumonia Additional Impression: Altered level of consciousness Disposition: ADMITTED TO HOSPITAL Discharge Condition All VS Reviewed: Yes Condition: Stable Referrals: Gris Martino (PCP) Scribe Attestation Portions of this note were transcribed by Magalis Whitehead. I, Dr. Montiel, personally performed the history, physical exam and medical decision-making; I reviewed and confirmed the accuracy of the information in the transcribed note. Signed by: Corey Kennedy, 2016 at 17:07 copies to: Gris Martino Timothy S DO December 25, 2016 12:25 MAGALIS NIEVES December 25, 2016 12:31 Wendy Whitehead December 25, 2016 17:05 Dictated by: Irene Sandhu M.D. on 12/25/2016 at 13:10 Approved by: Irene Sandhu M.D. on 12/25/2016 at 13:11 View: Portable, 1 view Interpretation / Wet Read by: Interpret - Radiologist CT Head Interpretation IMPRESSION: 1. No intracranial hemorrhage or mass effect. 2. Moderate to severe cerebral volume loss with enlargement of the ventricles slightly out of proportion to the sulci raising the possibility of normal pressure hydrocephalus. Recommend correlation clinically and further evaluation with a nuclear medicine cisternogram if indicated. 3. Suggestion of hypoattenuation in the right brainstem with evaluation limited due to streak artifact. If clinical concern persists, further evaluation may be obtained with MRI. Dictated by: Maico Fuchs M.D. on 12/25/2016 at 14:15 Approved by: Maico Fuchs M.D. on 12/25/2016 at 14:18 Study: Head CT no contrast Interpretation / Wet Read by: Interpret - Radiologist Re-Eval/Medical Decision Med Decision/Clinical Course Patient presents with recurrent fever and decreased level of consciousness, clinically she is not well-appearing. Her vital signs and labs are overall reassuring. Her x-ray actually looks worse compared to about a week ago though she does not have overt cough or sputum, this along with reported fever at the detention raises the question of whether this is healthcare associated pneumonia. Additionally she still has 11-50 white cells in her urine, this could be a drug resistant bacteria which is not sensitive to Keflex versus colonization. Either way this patient clinically does not look well and does not seem stable for discharge back to the detention. Will plan to admit and broaden the antibiotic coverage. Repeat cultures obtained. Source of Hx: Old records Time of Eval: 13:33 Re-Evaluation/Progress Note: Patient's daughter is now present at bedside. Updated her on the plan of care. Time of Eval: 14:43 Re-Evaluation/Progress Note: Discussed lab and imaging results and need for admission. Daughter understands and agrees to the plan. All other questions addressed. Consultation #1: Referral / Consult Name: Kailee Balderas DO Consulted With: Hospitalist Call Returned at: 16:05 Note: will call back Consultation #2: Referral / Consult Name: Ruben Lei MD Consulted With: Hospitalist Call Returned at: 17:00 Air Brush Decorator: Will see patient, Agrees with eval, Agrees with plan, Accepts admit Note: Will put in admit orders now. Counseled Regarding: Diagnosis, Lab results, Need for admission Discharge & Departure Primary Impression: Healthcare associated bacterial pneumonia Additional Impression: Altered level of consciousness Disposition: ADMITTED TO HOSPITAL Discharge Condition All VS Reviewed: Yes Condition: Stable Referrals: Gris Martino (PCP) Scribe Attestation Portions of this note were transcribed by Magalis Nieves and Wendy Whitehead. I, Dr. Montiel, personally performed the history, physical exam and medical decision-making; I reviewed and confirmed the accuracy of the information in the transcribed note. Signed by: Magalis Nieves and Corey Raya, 2016 at 17:07 copies to: Gris Martino Timothy S DO December 25, 2016 12:25 MAGALIS NIEVES December 25, 2016 12:31 Wendy Whitehead December 25, 2016 17:05
[2016-12-25] MEDS ORDERED: 0.9% Sodium Chloride 1,000 ML IV ONE (12:28)
[2016-12-25 13:10] LABS: BASOPHILS % (AUTO) 0.2 % (0-3); EOSINOPHILS % (AUTO) 4.2 % (0-5); Mean Corpuscular Hemoglobin 30.3 pg (27.0-35.0); Mean Corpuscular Volume 92.5 fL (81-100); NEUTROPHILS % (AUTO) 78.6 % (40-74); Platelet Count 282 bil/L (150-400)
--- NOTE | 2016-12-25 13:12 | DRSVH ---
PROCEDURE: X-RAY CHEST ONE VIEW, PORTABLE ([id number]) INDICATIONS: fever, rales on exam TECHNIQUE: One view of the chest was acquired. COMPARISON: Located Within [facility], CR, XR CHEST 1VW (PORTABLE), 12/19/2016, 12:52. FINDINGS: Surgical changes and devices: Sternal wires are present. Lungs and pleura: Diffuse appearance of increased pulmonary vascularity as well as patchy bilateral o pacities are present. There is no appreciable interval change. Mediastinum: Mediastinal contours appear normal. Heart size is normal. Bones and chest wall: No suspicious bony lesions. Overlying soft tissues appear unremarkable. IMPRESSION: 1. Stable appearance of bilateral opacities and pulmonary vascularity. As previously noted, findings are suggestive of edema with likely superimposed airspace disease such as pneumonia. Dictated by: Irene Sandhu M.D. on 12/25/2016 at 13:10 Approved by: Irene Sandhu M.D. on 12/25/2016 at 13:11
[2016-12-25 13:31] LABS: TROPONIN T 0.021 ug/L (0.0-0.011)
--- NOTE | 2016-12-25 14:20 | DRSVH ---
PROCEDURE: CT BRAIN WITHOUT CONTRAST ([id number]) INDICATIONS: aloc TECHNIQUE: Noncontrast 4.5 mm thick angled axial sections acquired from the foramen magnum to the vertex, with c oronal reformats. COMPARISON: None. FINDINGS: Image quality: There is slight motion artifact. CSF spaces: Basal cisterns are patent. No extra-axial fluid collections. The ventricles are symmet jerry in size and shape. There is moderate to severe cerebral volume loss, with resultant ventricular and sulcal prominence. The ventricles are enlarged slightly out of proportion to the sulci. Brain: No intracranial hemorrhage, mass, or mass effect. There are subcortical, periventricular and deep white matter hypodensities consistent with mild chronic small vessel ischemic changes. There i s suggestion of asymmetric hypoattenuation in the right brainstem although evaluation is limited due to streak artifact. There is intracranial internal carotid artery atherosclerosis. Skull and face: Calvarium and visualized facial bones appear intact, without suspicious lesions. Sinuses: Visualized sinuses and mastoids are clear. IMPRESSION: 1. No intracranial hemorrhage or mass effect. 2. Moderate to severe cerebral volume loss with enlargement of the ventricles slightly out of propor tion to the sulci raising the possibility of normal pressure hydrocephalus. Recommend correlation cl inically and further evaluation with a nuclear medicine cisternogram if indicated. 3. Suggestion of hypoattenuation in the right brainstem with evaluation limited due to streak artifa ct. If clinical concern persists, further evaluation may be obtained with MRI. Dictated by: Maico Fuchs M.D. on 12/25/2016 at 14:15 Approved by: Maico Fuchs M.D. on 12/25/2016 at 14:18
[2016-12-25 14:42] LABS: APPEARANCE,URINE HAZY (CLEAR,HAZY); COLOR,URINE YELLOW (YELLOW)
[2016-12-25 14:43] LABS: OCCULT BLOOD,URINE TRACE (NEGATIVE)
[2016-12-25 14:44] LABS: UROBILINOGEN,URINE NORMAL (NORMAL)
[2016-12-25] MEDS ORDERED: Meropenem Inj 1,000 MG in IV Premix 1 EACH IV ONE (14:45)
[2016-12-25] MEDS ORDERED: levoFLOXacin Inj 750 MG in IV Premix 1 EACH IV ONE (14:45)
[2016-12-25] MEDS ORDERED: Meropenem Inj 1,000 MG in 0.9% Sodium Chloride 50 ML IV ONE (14:50)
[2016-12-25] MEDS ORDERED: Vancomycin Inj 1,500 MG in 0.9% Sodium Chloride 500 ML IV ONE (15:20)
[2016-12-25 15:34] VITALS: BP 139/48; PULSE 81; RESP 33; O2SAT 93
[2016-12-25] MEDS ORDERED: LORazepam Oral Conc 2 mg/mL 30 mL Solution PO ONE (15:50)
[2016-12-25] MEDS ORDERED: Ondansetron 2 mg/mL 2 mL Inj IVPUSH PRN (17:20)
[2016-12-25] MEDS ORDERED: Alum-Mag Hydrox-Simeth 30 mL Suspension PO PRN (17:20)
[2016-12-25] MEDS ORDERED: Polyethylene Glycol (PEG) 17 Gm Powder PO PRN (17:20)
--- NOTE | 2016-12-25 17:40 | PCM.HPMED ---
Subjective Date of Service December 25, 2016 Primary Provider: Admitting Physician: Ruben Lei MD Primary Care Physician: Gris Martino Attending Physician: Ruben Lei MD Chief Complaint: fever increased confusion History of Present Illness: 86yo lady with hx of advanced dementia, recurrent UTI hx obtained from available medical records, admitting er physician, bedside nurse no family at bedside unable to reach anyone by phone. recently admitted and discharged from our hospital with a uti. following this she had a documented fever at the long term of 100.4 per er sign out. she was also more confused and agitated than normal. currently alert but cannot converse coherently. Review of Systems: unable to obtain due to mental status Allergies Coded Allergies: Penicillins (Verified Allergy, Unknown, 12/25/16) strawberry (Verified Allergy, Unknown, Hives, 12/19/16) Uncoded Allergies: PENICILLIN (Allergy, Mild, rash, 12/19/16) Home Medications see med rec PMH as mentioned in hpi Surgical History heart valve transplant, h/l hip, appendix, possible gallbladder, ex lap for lysis of adhesions. Family History unable to obtain due to mental status. Social History Hx Alcohol Use: No Hx Substance Use: No Hx Tobacco Use: No Smoking Status: Unknown if Ever Smoker Exam Vital Signs Vital Sign - Last Date Time Temp Pulse Resp B/P Pulse Ox O2 Delivery O2 Flow Rate FiO2 12/25/16 15:34 37 81 33 139/48 93 Room Air Exam General: No acute distress. Awake, alert. Head: Normocephalic, atraumatic. Eyes: White sclera. Conjunctiva non-injected. Mouth & Throat: No Bleeding. No erythema, lesions, exudates visualized. Neck: No tender adenopathy. Trachea midline. Respiratory: bibasilar rales. Regular work of breathing without use of accessory muscles. Cardiovascular: RRR Pulses 2+ equal bilaterally. Abdomen: Normal bowel sounds x4 quadrants. Soft, non-tender, non-distended. Extremities: Intact. no joint effusions. no lower extremity tenderness, swelling, erythema or increased warmth. Skin: Intact, no lesions, no rash. Neurologic: Awake, alert, oriented x0. No obvious focal deficits but exam limited due to inability to consistently follow commands. Psychiatric: awake alert. not coherently conversive. Lab and Diagnostics Result Diagram: 12/25/16 1255 12/25/16 1255 X-Rays, CTs and MRIs Date of Service: 12/25/16 1328 PROCEDURE: CT BRAIN WITHOUT CONTRAST ([id number]) IMPRESSION: 1. No intracranial hemorrhage or mass effect. 2. Moderate to severe cerebral volume loss with enlargement of the ventricles slightly out of proportion to the sulci raising the possibility of normal pressure hydrocephalus. Recommend correlation clinically and further evaluation with a nuclear medicine cisternogram if indicated. 3. Suggestion of hypoattenuation in the right brainstem with evaluation limited due to streak artifact. If clinical concern persists, further evaluation may be obtained with MRI. Dictated by: Maico Fuchs M.D. on 12/25/2016 at 14:15 Approved by: Maico Fuchs M.D. on 12/25/2016 at 14:18 Date of Service: 12/25/16 1228 PROCEDURE: X-RAY CHEST ONE VIEW, PORTABLE ([id number]) IMPRESSION: 1. Stable appearance of bilateral opacities and pulmonary vascularity. As previously noted, findings are suggestive of edema with likely superimposed airspace disease such as pneumonia. Dictated by: Irene Sandhu M.D. on 12/25/2016 at 13:10 Approved by: Irene Sandhu M.D. on 12/25/2016 at 13:11 Assessment & Plan -- hcap -- urinary tract infection -- sepsis secondary to above presented with fever and worsening mentition when compared to baseline. recently admitted and treated for uti. u/a still shows pyuria. has indwelling emerson. cultures sent again. ct abd pelvis to r/o further complications, infection focus such as abscess, obstruction, stone etc cxr shows evidence of possible pneumonia. O2 sat in low 90s on room air and has been slightly tachypnic. unable to obtain hx of symptoms directly from patient. but does not appear to be in overt distress broad spectrum abx. blood cx. procalictonin differ aggressive fluid resusitation now blood pressure ok. signs of pulmonary edema on xray. cont to monitor. -- elevated troponin hard to say the significance of this. currently in indeterminant range. no emergent ekg findings. serial troponins. echocardiogram. telemetry. aspirin. may be secondary to demand ischemia. does not appear to be having chest pain now. cont to monitor -- advanced dementia sitter. prn anxiolytics if necessary -- ct brain abnormalities. ( Moderate to severe cerebral volume loss with enlargement of the ventricles slightly out of proportion to the sulci raising the possibility of normal pressure hydrocephalus. Recommend correlation clinically and further evaluation with a nuclear medicine cisternogram if indicated. Suggestion of hypoattenuation in the right brainstem with evaluation limited due to streak artifact.) does not appear to have focal deficits. cont to monitor. may need mri in the future. f/e/n: saline lock iv. monitor electrolytes. dispo: admit to inpt tele with expected LOS >2 midnights. GI Prophylaxis: Not indicated VTE Prophylaxis: Sub-Q Enoxaparin Resuscitation Status: DNR/DNI:Do Not Resuscitate/Intubate (as documented in recent hospital stay.) Ruben Lei MD December 25, 2016 17:40
--- NOTE | 2016-12-25 18:00 | PCM.CONPHA ---
Assessment/Plan Assessment/Plan Pharmacy Kinetic Dosing Vancomycin Indication: HCAP Vanc goal trough: 15-20 mcg/mL Pt wt: 72.2 kg Other ABX: MEROPENEM Cultures: Blood/URINE/MRSA PENDING SCr: 0.63mg/dL Assessment/Plan: - Loading dose of Vancomycin 1500 mg given in ED for (20 mg/kg dosing) -Will continue Vancomycin 750 mg Q12H (10 mg/kg dosing) DUE TO PATIENTS AGE with trough scheduled prior to 4th dose on 12/27/16 @7510 Pharmacy appreciates consult and will continue to monitor. Geni Corona PharmD December 25, 2016 18:00
[2016-12-25 18:13] VITALS: BP 121/73; PULSE 67; RESP 16; O2SAT 97
[2016-12-25 18:57] VITALS: PULSE 87
--- NOTE | 2016-12-25 19:26 | NUR ---
ADMIT TO [facility] Patient arrived to room 1008 on [facility], transferred to hospital bed with 3 person assist. IV antibiotics running when arrived to floor. R wrist IV patent. Patient oriented to self only, not oriented to place or time. On 3 LPM O2. MRSA swab sent down to lab. Unable to orient to room. Telemetry placed on patient. Skin assessment completed.
[2016-12-25] MEDS ORDERED: LORA2ORA4 PO (20:09)
[2016-12-25] MEDS ORDERED: LOPE2CAP PO (20:09)
[2016-12-25] MEDS ORDERED: CHOL378P PO (20:09)
[2016-12-25] MEDS ORDERED: ALBU18HF INH (20:09)
[2016-12-25] MEDS ORDERED: ONDA-53 PO (20:09)
[2016-12-25] MEDS ORDERED: ALBU1.25 INHALATION (20:09)
[2016-12-25] MEDS ORDERED: OMEP20CA11 PO (20:09)
[2016-12-25] MEDS ORDERED: FLUC150T3 PO (20:09)
[2016-12-25] MEDS ORDERED: NITR50CA PO (20:09)
[2016-12-25] MEDS ORDERED: BISA-67 PO (20:09)
[2016-12-25 21:37] VITALS: BP 135/79; PULSE 70; O2SAT 94
--- NOTE | 2016-12-25 21:37 | DRSVH ---
PROCEDURE: CT ABDOMEN AND PELVIS WITHOUT CONTRAST ([id number]) INDICATIONS: uti sepsis TECHNIQUE: Noncontrast 5 mm thick sections acquired from the diaphragms to the symphysis. 5 mm coronal and sagi ttal reformats were then performed. For radiation dose reduction, the following was used: automated exposure control, adjustment of mA and/or kV according to patient size. COMPARISON: [facility], CT, CT BRAIN WO CON, 12/25/2016, 13:59. FINDINGS: Image quality: Excellent. ABDOMEN: Lung bases: Lung bases demonstrate patchy areas of bilateral opacity, as well as extension into the r ight middle lobe. Solid organs: Liver and spleen are normal in size. Gallbladder is not visualized. Pancreas is norm al in contours. No adrenal nodules. Kidneys are normal in size, without hydronephrosis or nephrolit hiasis. Peritoneum and bowel: Unenhanced bowel loops demonstrate demonstrate significant diverticula. There is a mild appearance of thickening within the sigmoid colon, appearing more prominent when compared t o 03/21/15 particularly within the left lower pelvis. There is a somewhat rounded prominence within thi s region. While this area demonstrated thickening on 03/21/15 exam, the focal area of rounded prominenc e is not previously appreciated. There is no surrounding pericolonic inflammatory change. Nodes and vessels: No retroperitoneal or mesenteric adenopathy by size criteria. Aorta and inferior vena cava are normal in caliber. Miscellaneous: Ventral hernia is present with slight protrusion of colon. No evidence of incarceratio n or strangulation. PELVIS: Genitourinary: Bladder is poorly evaluated secondary to metallic streak artifact from bilateral hip arthroplasties. Miscellaneous: No inguinal hernias or adenopathy. Bones: No suspicious bony lesions. No vertebral body compression fractures. IMPRESSION: 1. Incomplete evaluation of the bladder secondary to pelvic streak artifact from bilateral hip arthro plasties. 2. Prominent diverticula throughout the colon with thickening most significantly in the sigmoid colon with a somewhat rounded masslike appearance when compared to 03/21/15. While this could be secondary t o focal colonic incomplete distention or superimposed structures not well characterized secondary to metallic streak artifact, focal mass cannot be excluded. Further evaluation with contrast CT or colon oscopy is recommended. 3. Patchy areas of opacity within the lung bases and right middle lobe as above most suspicious for a irspace disease such as multifocal pneumonia. Dictated by: Irene Sandhu M.D. on 12/25/2016 at 21:30 Approved by: Irene Sandhu M.D. on 12/25/2016 at 21:36
[2016-12-25] MEDS ORDERED: Meropenem Inj 1,000 MG in IV Premix 1 EACH IV SCH (23:30)
[2016-12-26] VITALS (8 sets, daily range): BP systolic 115–166; BP diastolic 68–98; PULSE 58–101; RESP 16–24; O2SAT 93–98
[2016-12-26] MEDS: Vancomycin Inj 750 MG in 0.9% Sodium Chloride 250 ML IV SCH ×2 (05:24→22:14)
[2016-12-26 05:35] LABS: BASOPHILS % (AUTO) 0.3 % (0-3); EOSINOPHILS % (AUTO) 4.7 % (0-5); MONOCYTES % (AUTO) 7.1 % (4-12); Mean Corpuscular Hemoglobin 29.9 pg (27.0-35.0); Mean Corpuscular Volume 93.2 fL (81-100); NEUTROPHILS % (AUTO) 79.6 % (40-74); Platelet Count 260 bil/L (150-400)
--- NOTE | 2016-12-26 05:37 | NUR ---
Rest Patient sleeping entire shift. Able to arouse with light touch, but patient soon falls back to sleep. Vitals stable. 98% on 3L O2. Peripheral IV in right hand Patent. IV abx running. Daughter said she would return in morning.
[2016-12-26 05:59] LABS: Magnesium 2.1 mg/dL (1.6-2.6); Phosphorus 3.2 mg/dL (2.5-4.9)
--- NOTE | 2016-12-26 07:12 | NUR ---
pt has catheter 2 way Addendum: 12/26/16 at 0712 by MICHAEL ANGLIN CNA Amended: Links added.
[2016-12-26] MEDS ORDERED: Meropenem Inj 1,000 MG in IV Premix 1 EACH IV SCH (07:30)
[2016-12-26] MEDS: Vancomycin Dose per Pharmacist XX SCH (08:30)
[2016-12-26] MEDS ORDERED: Vancomycin Dose per Pharmacist XX SCH (08:30)
[2016-12-26] MEDS: Meropenem 1 Gm/100 mL NS Minibag Plus IV SCH ×4 (10:06→17:58)
--- NOTE | 2016-12-26 10:07 | NUR ---
Social Work-initial assessment: Data:See initial assessment. Pt is a 86 y/o female who was admitted on 12/25/16 for ALOC and HCAP per H&P. Pt's insurance is [employer] and [employer] and PCP is ROXANNE Walter. EMR reviewed. Pt's readmission score is 4-high risk. Pt is a re-admission discharging 12/24, order received from MD for routine case management. Pt has baseline dementia. SATNAM placed a call to daughter Ирина [phone] to discuss pt, SATNAM role explained. Pt has been residing at [facility] since 2013. Pt uses a fww or w.c at baseline and does not drive. Pt has no HH or SNF history. Pt has no alf care insurance or VA benefits. SW discussed DPOA/ advance directive, daughter confirms she has completed this, SW encouraged a copy to be brought in. Daughter anticipates pt to return back to [facility] at discharge. SATNAM called and spoke with Nitza at [facility], who confirms above information. Nitza confirms that they may need to come and complete re-assessment prior to discharge. SATNAM faxed updated clinicals for review to [phone]. Pt did arrive via EMS so medicaid transport could be used at discharge. SW to contact [facility] closer to discharge. SW provided phone number to daughter. SW will continue to follow. Assessment:Pt who resides at [facility]. Plan:Anticipate pt to discharge back to [facility] when medically stable. SW to contact [facility] closer to discharge to determine if they will need to re-assess pt, updated clinicals have been faxed. SATNAM will continue to follow. RAZA Mixon Addendum: 12/26/16 at 1013 by VIRAL DUNHAM Amended: Links added.
[2016-12-26] MEDS ORDERED: FLUOXETINE 80 MG PO SCH (11:00)
[2016-12-26] MEDS ORDERED: ONDANSETRON 4 MG PO PRN (11:00)
[2016-12-26] MEDS ORDERED: Albuterol 1.25 mg/3 mL Inhalation Solution INHALATION PRN (11:00)
--- NOTE | 2016-12-26 11:10 | PCM.PNMED ---
Subjective Date of Service December 26, 2016 Subjective Patient has severe dementia and cannot provide any detailed answers. She does however state that she is feeling anxious and feels uncomfortable. She cannot be more specific. She cannot answer questions about abdominal pain or dyspnea or dysuria. No overnight events Exam Vital Signs Vital Sign - Last Date Time Temp Pulse Resp B/P Pulse Ox O2 Delivery O2 Flow Rate FiO2 12/26/16 10:15 Supplement Oxygen 12/26/16 09:54 87 12/26/16 09:35 37.0 17 115/72 95 3.00 Intake and Output 12/25/16 12/25/16 12/26/16 Cumulative From/Thru 15:00 23:00 07:00 12/25/16 15:05 - 12/26/16 06:20 Intake Total 200 ml 313 ml 513 ml Output Total 350 ml 350 ml Balance -150 ml 313 ml 163 ml Intake Oral 200 ml 200 ml IV Total 313 ml 313 ml Output Urine Total 350 ml 350 ml Exam She appears tremulous and anxious. She cannot state where she has a what the year is. Fluent speech Anicteric sclera. Lungs are clear with normal rate and effort Heart is regular without murmur gallop or rub Abdomen soft nontender, flat Extremities are free of edema. Skin is free of rash or lesions. IVs and Medications Medications Reviewed: Medications were reviewed in detail Lab and Diagnostics Result Diagram: 12/26/1644712/26/16447 X-Rays, CTs and MRIs Date of Service: 12/25/16 1328 PROCEDURE: CT BRAIN WITHOUT CONTRAST ([id number]) IMPRESSION: 1. No intracranial hemorrhage or mass effect. 2. Moderate to severe cerebral volume loss with enlargement of the ventricles slightly out of proportion to the sulci raising the possibility of normal pressure hydrocephalus. Recommend correlation clinically and further evaluation with a nuclear medicine cisternogram if indicated. 3. Suggestion of hypoattenuation in the right brainstem with evaluation limited due to streak artifact. If clinical concern persists, further evaluation may be obtained with MRI. Dictated by: Maico Fuchs M.D. on 12/25/2016 at 14:15 Approved by: Maico Fuchs M.D. on 12/25/2016 at 14:18 Date of Service: 12/25/16 1228 PROCEDURE: X-RAY CHEST ONE VIEW, PORTABLE ([id number]) IMPRESSION: 1. Stable appearance of bilateral opacities and pulmonary vascularity. As previously noted, findings are suggestive of edema with likely superimposed airspace disease such as pneumonia. Dictated by: Irene Sandhu M.D. on 12/25/2016 at 13:10 Approved by: Irene Sandhu M.D. on 12/25/2016 at 13:11 Assessment & Plan 1. Possible care associated pneumonia, POA. At this point she appears to be clinically stable we will simply continue her current medical regimen. Will await culture data including blood cultures. She appears to be ventilating and oxygenating without difficulty. 2. Possible urinary tract infection, POA. We will await culture data and continue antibiotics. 3. Sepsis secondary pneumonia. POA. This is clinically improved. The plan is to continue antibiotics and add IV fluids, saline at 75 per hour. presented with fever and worsening mentition when compared to baseline. recently admitted and treated for uti. u/a still shows pyuria. has indwelling emerson. cultures sent again. ct abd pelvis to r/o further complications, infection focus such as abscess, obstruction, stone etc cxr shows evidence of possible pneumonia. O2 sat in low 90s on room air and has been slightly tachypnic. unable to obtain hx of symptoms directly from patient. but does not appear to be in overt distress broad spectrum abx. blood cx. procalictonin differ aggressive fluid resusitation now blood pressure ok. signs of pulmonary edema on xray. cont to monitor. 4. Elevated troponin, POA. No further workup will follow clinically. hard to say the significance of this. currently in indeterminant range. no emergent ekg findings. serial troponins. echocardiogram. telemetry. aspirin. may be secondary to demand ischemia. does not appear to be having chest pain now. cont to monitor 5. advanced dementia, POA sitter. prn anxiolytics if necessary -- ct brain abnormalities. ( Moderate to severe cerebral volume loss with enlargement of the ventricles slightly out of proportion to the sulci raising the possibility of normal pressure hydrocephalus. Recommend correlation clinically and further evaluation with a nuclear medicine cisternogram if indicated. Suggestion of hypoattenuation in the right brainstem with evaluation limited due to streak artifact.) does not appear to have focal deficits. cont to monitor. may need mri in the future. dispo: admit to inpt tele with expected LOS >2 midnights. GI Prophylaxis: Not indicated VTE Prophylaxis: Sub-Q Enoxaparin VTE Mechanical Devices: Intermittant Pneumatic CD Resuscitation Status: DNR/DNI:Do Not Resuscitate/Intubate (as documented in recent hospital stay.) Brian Leroy MD December 26, 2016 11:09
[2016-12-26] MEDS: Pantoprazole 40 mg ER24 Tablet PO SCH ×2 (11:47→20:30)
[2016-12-26] MEDS: MeTOProlol XL 50 mg ER24 Tablet PO SCH (12:00)
[2016-12-26] MEDS ORDERED: OLANZAPINE 10 MG PO SCH (12:00)
--- NOTE | 2016-12-26 12:51 | NUR ---
Meds/Swallowing Home medications ordered by MD and attempted to give to pt, but she was unable or unwilling to swallow. Daughter states she is able to fine, just has to want to swallow. Pt has also not swallowed when given breakfast or lunch. Has taken small sips of water. Bed in low, call light in reach and pt's daughter in room. Addendum: 12/26/16 at 1953 by JELLY HOLLEY RN Pt did eat some pudding and small amount of dinner from daughter, but was not interested in taking anymore medications. Per charting pt had BM on 12/24/16 and daughter wanted stool softener, but pt wouldn't swallow meds. Can be tearful and shaky and want to hold hands, per daughter pt has seperation anxiety. Pt had increasing tearful episodes and anxiety, so medications given and pt able to rest.
--- NOTE | 2016-12-26 14:57 | NUR ---
Evaluation completed. Please go to "Notes" then click on "Assessments and Notes" (bottom left corner of screen). Then select appropriate discipline tab on top of screen.
--- NOTE | 2016-12-26 17:36 | DRSVH ---
[facility] [address] [facility] [place] [address] Echocardiogram Report Name: SUAD CHARLES Study Date: 12/26/2016 Height: 61 in Hospital Exam Location: [facility] Weight: 159 lb Gender: Female BSA: 1.7 m2 : 1930 Age: 86 yrs BP: 146/71 mmHg Reason For Study: ELEVATED TROPONIN Ordering Physician: HOSPITALIST [facility] Performed By: Ketty Schwartz Referring Physician: ROXANNE Martino Interpretation Summary 1. Normal left ventricular size with mild proximal septal thickening and normal systolic function with an estimated EF of 60-65% 2. Normal right ventricular size and systolic function. The estimated RVSP is 39 mm Hg plus the CVP 3. No evidence for significant valvular pathology Compared to the previous study, the septal wall hypokinesis described on the previous study is no longer appreciated Procedure: A two-dimensional transthoracic echocardiogram with color flow and Doppler was performed. The study quality was technically adequate. Comparison is made with the echocardiogram of 05-01-2016. The patient was in sinus during the exam. Left Ventricle: The LVOT diameter is 2.1 cm. The left ventricle is normal in size. There is mild proximal septal thickening noted. Mildly elevated outflow tract velocities. The ejection fraction is estimated to be 60-65%. No obvious focal wall motion abnormalities. Right Ventricle: The right ventricle is normal in size and function. Atria: Both atria are normal in size. There is no Doppler evidence for an atrial septal defect. Mitral Valve: There is mild mitral annular calcification. The mitral valve leaflets appear mildly thickened, but open well. There is trace mitral regurgitation. Aortic Valve: The aortic valve is not well visualized. The aortic valve is slightly calcified. The calculated aortic valve area is 2.1 cm2. The aortic valve mean gradient is 10 mmHg. There is no hemodynamically significant valvular aortic stenosis. No aortic regurgitation is present. Tricuspid Valve: The tricuspid valve leaflets are thin and pliable. There is trace tricuspid regurgitation. Right ventricular systolic pressure is estimated to be 39 mmHg plus the clinically estimated CVP which cannot be estimated on this exam. Pulmonic Valve: The pulmonic valve is not well visualized. There is a trace or physiologic amount of pulmonic regurgitation. Great Vessels: The aortic root is normal size. The dimensions of the ascending aorta are normal. The pulmonary artery is normal size. The pulmonary artery branches are grossly normal. The IVC is normal size. Unable to evaluate for inspirational collapse. Pericardium/ Pleura There is no pericardial effusion. There is no pleural effusion. MMode/2D Measurements & Calculations LVIDd: 4.3 cm LA dimension: 4.2 cm RA long axis LVOT diam: 2.1 cm LVIDs: 2.8 cm AoV Opening FS: 35.5 % LA A2 area: 18.7 cm RA area EPSS: 0.45 cm LA A4 area: 16.0 cm Ao root diam IVSd: 0.97 cm LA length (vol) : 11.7 cm LVPWd: 1.2 cm RA vol asc Aorta Diam LA vol: 56.5 ml : 23.5 ml LA vol index RA Ao Arch Diam (Prox : 13.7 mm2 Trans): 2.3 cm IVC diam: 1.4 cm LV varma. diameter/BSA LV sys. diameter/BSA RVD2 (mid) (cm/m^2): 2.5 (cm/m^2): 1.6 : 3.5 cm Doppler Measurements & Calculations Ao V2 max MV E max yonas MV E/A: 0.86 TR max yonas : 221.3 cm/sec : 127.3 cm/sec Med Peak E' Yonas : 325.8 cm/sec Ao max P.6 mmHg MV A max yonas TR max PG Ao mean P.0 mmH.4 cm/sec E/E' med: 22.6 : 42.5 mmHg LVOT Max Yonas MV P1/2t: 43.3 msec Lat Peak E' Yonas PA V2 max : 118.6 cm/sec : 90.9 cm/sec E/E' lat: 13.4 PA mean PG LAKESHA(I,D): 2.1 cm E/e' average sev ratio: 0.58 PA Accel Time Pulm A Revs Dur : 0.11 sec MV A dur : 0.12 sec MV P1/2t max yonas Ao V2 mean LV V1 max PG PA V2 mean : 148.0 cm/sec : 67.4 cm/sec Ao V2 VTI: 40.2 cm LV V1 VTI MVA(P1/2t): 5.1 cm2 : 23.4 cm LAKESHA(V,D): 1.9 cm2 LAKESHA indexed to BSA Pulm A Revs Dur - MV A (cm^2/m^2): 1.2 Dur: 0.00 msec Reading Physician:05:35 PM
[2016-12-26] MEDS: 0.9% Sodium Chloride 1,000 ML IV SCH (23:50)
[2016-12-27] VITALS (8 sets, daily range): BP systolic 113–171; BP diastolic 56–84; PULSE 86–130; RESP 20–24; O2SAT 92–98
[2016-12-27] MEDS: Meropenem 1 Gm/100 mL NS Minibag Plus IV SCH ×6 (01:33→16:30)
--- NOTE | 2016-12-27 03:53 | NUR ---
Medication Patient has difficulty swallowing water this shift. Unable to take oral medications. Patient minimally responsive when asked questions. Patient appears to have increased anxiety and was very shaky at beginning of shift. Patient sleeping most of shift. O2 3L, mid to high 90's. Vitals stable.
[2016-12-27] MEDS ORDERED: Vancomycin Serum Trough XX ONE ×2 (04:30→09:30)
[2016-12-27] MEDS: 0.9% Sodium Chloride 1,000 ML IV SCH ×2 (05:55→16:21)
[2016-12-27] MEDS: MeTOProlol XL 50 mg ER24 Tablet PO SCH ×2 (08:30→18:43)
[2016-12-27] MEDS: Vancomycin Dose per Pharmacist XX SCH (08:30)
[2016-12-27] MEDS: Pantoprazole 40 mg ER24 Tablet PO SCH ×2 (08:30→18:47)
--- NOTE | 2016-12-27 09:46 | NUR ---
Anxiety/HR Pt with increased anxiety with any social interactions with staff. Per police service technician, HRR sinus tachy this morning ranging from 110-130s. PO Metoprolol withheld d/t dysphagia. 1mg IV ativan given this morning, effective for calming pt but made more drowsy. Swallowing continues to be an issue, made NPO. MD aware, no order changes at this time.
--- NOTE | 2016-12-27 10:45 | NUR ---
NUTRITION ASSESSMENT: ASSESS: Pt is an 86yo F admitted for pneumonia and possible UTI. Pt has been having difficulty swallowing and has been made NPO until ST can evaluate her. Prior to NPO, she was on dysphagia mechanical diet with variable PO of 0-100% PMHX: Dementia, UTI LABS: Reviewed. Glu 106, Alb 3.4 MEDS: Reviewed. GI: 0 BM yet SKIN: Heath 12 CURRENT WTS: 72.2kg, BMI 30.1kg/m2, IBW 47.7kg DIET: NPO until ST eval EST. NEEDS: BMI Kcals: 1445-1585kcal/day (20-22kcal/kg) Pro: 55-70g/day (1.2-1.5g/kg IBW) NUTRITION DIAGNOSIS: 1.) Chew/swallow difficulty related to dementia as evidence by need for ST eval. NUTRITION INTERVENTION: 1.) Advance diet per ST. Encourage PO intake MONITOR / EVAL: NPO, ST, wt, GI, labs, POC, nutrition status. Will continue to monitor per high nutrition risk guidelines
--- NOTE | 2016-12-27 12:15 | PCM.PNMED ---
Subjective Date of Service December 27, 2016 Subjective The patient is not able to communicate due to advanced dementia. She is tremulous and appears very anxious moaning. Daughter is at the bedside and notes that this is fairly typical. Subjective and ROS not obtainable Daughter notes that she has a history of fluctuating ability to eat and choking but in general is able to eat without difficulty. Overnight events reviewed Exam Vital Signs Vital Sign - Last Date Time Temp Pulse Resp B/P Pulse Ox O2 Delivery O2 Flow Rate FiO2 12/27/16 11:14 86 12/27/16 09:50 Supplement Oxygen 12/27/16 09:08 36.7 22 113/56 95 2.00 Intake and Output 12/26/16 12/26/16 12/27/16 Cumulative From/Thru 15:00 23:00 07:00 12/25/16 15:05 - 12/27/16 06:41 Intake Total 918 ml 499 ml 1930 ml Output Total 600 ml 250 ml 1200 ml Balance 318 ml 249 ml 730 ml Intake Oral 500 ml 100 ml 800 ml IV Total 418 ml 399 ml 1130 ml Output Urine Total 600 ml 250 ml 1200 ml # Bowel Movements 0 0 Exam Awake and unable to communicate, moaning. Tremulous. Anicteric sclera. Lungs are clear with normal rate and effort Heart is regular without murmur gallop or rub Abdomen soft nontender, flat Extremities are free of edema. Skin is free of rash or lesions. IVs and Medications Medications Reviewed: Medications were reviewed in detail Lab and Diagnostics Result Diagram: 12/26/168 12/26/16447 X-Rays, CTs and MRIs Date of Service: 12/25/16 1328 PROCEDURE: CT BRAIN WITHOUT CONTRAST ([id number]) IMPRESSION: 1. No intracranial hemorrhage or mass effect. 2. Moderate to severe cerebral volume loss with enlargement of the ventricles slightly out of proportion to the sulci raising the possibility of normal pressure hydrocephalus. Recommend correlation clinically and further evaluation with a nuclear medicine cisternogram if indicated. 3. Suggestion of hypoattenuation in the right brainstem with evaluation limited due to streak artifact. If clinical concern persists, further evaluation may be obtained with MRI. Dictated by: Maico Fuchs M.D. on 12/25/2016 at 14:15 Approved by: Maico Fuchs M.D. on 12/25/2016 at 14:18 Date of Service: 12/25/16 1228 PROCEDURE: X-RAY CHEST ONE VIEW, PORTABLE ([id number]) IMPRESSION: 1. Stable appearance of bilateral opacities and pulmonary vascularity. As previously noted, findings are suggestive of edema with likely superimposed airspace disease such as pneumonia. Dictated by: Irene Sandhu M.D. on 12/25/2016 at 13:10 Approved by: Irene Sandhu M.D. on 12/25/2016 at 13:11 Assessment & Plan 1. Possible care associated pneumonia, POA. We will continue meropenem and vancomycin for another day. She does have gram-negative rods in her urine we will likely do not to focus her therapy tomorrow. We will also add a naris swab for MRSA. If this is negative ankle to be stopped. The question is whether or not her infiltrates or residual or new infiltrates. She is at relatively high risk for aspiration pneumonia so levofloxacin and Flagyl may be a reasonable alternative depending on the urine culture as well. 2. Possible urinary tract infection, POA. We will await culture data and continue antibiotics. Plan is as above. 3. Sepsis secondary pneumonia. POA. This is resolved. 4. Elevated troponin, POA. No further workup will follow clinically. 5. advanced dementia, POA sitter. prn anxiolytics if necessary 6. Dysphagia and intermittent choking. Acute on chronic. POA. Nothing by mouth and speech evaluation today. Had a long discussion with daughter at the bedside regarding level of care and strategies. This is further details and ACP note for today. The patient's daughter does understand nothing by mouth until her swallow is stable makes sense. She does also note that she would not pursue up a different dysphagia seems chronic and irreversible. DNR/DNI Inpatient status GI Prophylaxis: Not indicated VTE Prophylaxis: Sub-Q Enoxaparin VTE Mechanical Devices: Intermittant Pneumatic CD Resuscitation Status: DNR/DNI:Do Not Resuscitate/Intubate (as documented in recent hospital stay.) Brian Leroy MD December 27, 2016 12:15
--- NOTE | 2016-12-27 12:17 | PCM.ADCARE ---
Advance Care Planning Note Purpose of Encounter: To further delineate level care. Parties in Attendance: Daughter, Ирина who is durable poultry for healthcare and patient Decisional Capacity: Patient is not decisional secondary to dementia Subjective: The patient is not able to provide a subjective. She is groaning and appears anxious. Objective: Lungs are clear, heart is regular She is awake but not able to communicate. No edema. Goals of Care Determinations: 1. DO NOT RESUSCITATE 2. DO NOT INTUBATE 3. Regards to dysphagia. The patient will be nothing by mouth due to recommended by speech therapy. She will have of an stiff she improves with treatment of her recurrent infections, which is possible. However if it seems unlikely that her swallow will improve the patient would not be appropriate for tube feeds or PEG tube placement. The patient's daughter did note this today. No long-term tube feeds. Plan: 1 DO NOT RESUSCITATE 2 DNI 3. No long-term tube feeds. 4. All medical care such as Avelox and IV fluids. CODE STATUS: DNR/DNI Time Spent Adv.Care Plannin minutes Adv. Care Plan Documenation: As above Brian Leroy MD December 27, 2016 12:17
[2016-12-27] MEDS: Vancomycin Inj 750 MG in 0.9% Sodium Chloride 250 ML IV SCH (13:17)
--- NOTE | 2016-12-27 15:58 | NUR ---
Evaluation completed. Please go to "Notes" then click on "Assessments and Notes" (bottom left corner of screen). Then select appropriate discipline tab on top of screen.
[2016-12-27] MEDS: Meropenem Inj 1,000 MG in 0.9% Sodium Chloride 50 ML IV SCH (20:58)
[2016-12-28] VITALS (12 sets, daily range): BP systolic 131–173; BP diastolic 65–80; PULSE 63–100; RESP 16–22; O2SAT 92–100
[2016-12-28] MEDS: Vancomycin Inj 750 MG in 0.9% Sodium Chloride 250 ML IV SCH (00:09)
[2016-12-28] MEDS: 0.9% Sodium Chloride 1,000 ML IV SCH ×2 (02:30→13:21)
[2016-12-28] MEDS: Meropenem Inj 1,000 MG in 0.9% Sodium Chloride 50 ML IV SCH (04:51)
--- NOTE | 2016-12-28 05:11 | NUR ---
Lungs Lungs sounded "wet" when coming in around 0445 during hourly rounding. RT called. RT recommended paging night hospitalist. MD Paez night hospitalist paged. No new orders at this time. Will continue to monitor.
[2016-12-28] MEDS ORDERED: Furosemide 10 mg/mL 2 mL Inj IVPUSH ONE (05:25)
[2016-12-28 05:48] LABS: Mean Corpuscular Hemoglobin 29.7 pg (27.0-35.0); Mean Corpuscular Volume 92.4 fL (81-100)
--- NOTE | 2016-12-28 08:25 | DRSVH ---
PROCEDURE: X-RAY CHEST ONE VIEW, PORTABLE ([id number]) INDICATIONS: resp distress TECHNIQUE: One view of the chest was acquired. COMPARISON: [facility], CR, XR CHEST 1VW (PORTABLE), 12/25/2016, 12:26. FINDINGS: Surgical changes and devices: Post median sternotomy. Lungs and pleura: Diffuse, widespread bilateral pulmonary interstitial and air space opacities are p resent similar to prior examination. No pneumothorax. Mediastinum: Mediastinal contours appear normal. Heart size is normal. Bones and chest wall: No suspicious bony lesions. Overlying soft tissues appear unremarkable. IMPRESSION: Pulmonary edema and/or diffuse bilateral pneumonia similar to prior examination. Dictated by: Ray WOOTEN Interpreted: Wolfgang Leiva MD on 12/28/2016 at 8:23 Transcribed by: BERNIE on 12/28/2016 at 8:24 Approved by: Prasad Leiva M.D. on 12/28/2016 at 10:51
[2016-12-28] MEDS: Pantoprazole 40 mg ER24 Tablet PO SCH ×2 (08:30→20:16)
[2016-12-28] MEDS: MeTOProlol XL 50 mg ER24 Tablet PO SCH (08:30)
[2016-12-28] MEDS: Vancomycin Dose per Pharmacist XX SCH (08:30)
--- NOTE | 2016-12-28 09:30 | NUR ---
AM MEDS AM meds held due to patient, being somnolent and diffcult to arouse. Not safe to administer oral medications. aware.
[2016-12-28] MEDS ORDERED: Vancomycin Inj 1,000 MG in IV Premix 1 EACH IV SCH (11:25)
--- NOTE | 2016-12-28 11:30 | PCM.PHAPRO ---
Progress fever increased confusion Vancomycin trough returned on 12/28@0930 at 11.9. Increasing dose to 1gQ12, will follow up with trough on 12/29 at 2100. Pharmacy will continue to follow. Deric Fiore Pharm.D December 28, 2016 11:30
--- NOTE | 2016-12-28 14:17 | NUR ---
Pt not a candidate for further acute rehab; Rec pt continue to transfer to chair with nsg and 2PA
--- NOTE | 2016-12-28 14:20 | NUR ---
Social Work: Continued Discharge Planning D: Pt is on day 3 of hospitalization. Pt has dementia at baseline. SW spoke with daughter Ирина (DPOA) regarding PT recommendations for SNF. SW explained that SNF has been deemed medically necessary for pt after discharge. Daughter was in agreement. SW provided daughter with choice list. Daughter would like to explore SNF choices in [place] and will call SW to provide choice later today. SW will continue to follow. A: Pt for whom SNF has been deemed medically necessary at time of discharge. PT currently recommends pt be transported to SNF via BLS. P: SW to follow-up with daughter regarding SNF choice in [place]. RAZA Magana Addendum: 12/28/16 at 1628 by ADRIANA DUNHAM Charlie Gifford called and left voicemail stating her SNF choice is [facility] in [place] at 16:27. SW to follow-up with SNF referral 12/29.
--- NOTE | 2016-12-28 15:00 | NUR ---
Anxiety/ Restlessness Patient's IV was found out when patient was moving around in bed. Linens and gown changed. New IV was placed with IV therapy with extra help of holding patient's arm still. [place] arm sleeve placed over IV site and secured with tape. Patient kept attempting to remove sleeve and was pulling at nasal cannula. IV ativan given with minimal relief. SN was in room with patient holding her hands to distract patient was pulling at IV. Eventually was able to distract patient with other belongings in her hands. Continues to remain restless in bed, fidgeting and removing blankets. Patient is unaware of where she is, randomly saying numbers outloud, asking to go to the kitchen or to go find jackie. Paged for further orders to help ease patient's agitation.
--- NOTE | 2016-12-28 15:48 | PCM.PNMED ---
Subjective Date of Service December 28, 2016 Subjective Patient nonverbal non-arousable for me. Nurses/staff did not report any complaints of chest pain, dyspnea, nausea or vomiting. Just extreme anxiousness. Exam Vital Signs Vital Sign - Last Date Time Temp Pulse Resp B/P Pulse Ox O2 Delivery O2 Flow Rate FiO2 12/28/16 11:59 36.7 100 16 147/65 93 Nasal Cannula 2.00 Intake and Output 12/27/16 12/27/16 12/28/16 Cumulative From/Thru 15:00 23:00 07:00 12/25/16 15:05 - 12/28/16 06:12 Intake Total 855 ml 1075 ml 3860 ml Output Total 300 ml 1050 ml 2550 ml Balance 555 ml 25 ml 1310 ml Intake Oral 120 ml 100 ml 1020 ml IV Total 735 ml 975 ml 2840 ml Output Urine Total 300 ml 1050 ml 2550 ml # Bowel Movements 1 1 2 Exam Gen.-Obese female sleeping in bed not arousable to gentle voice or physical stimuli. No apparent distress. Eyes-close normal lids, no drainage ENT- ears normal, nose normal Neck- trach midline CVS- RRR no murmur or gallop Lungs- CTA GI- NABS/NT soft Musc- moving 4 no obvious deformity Neuro- cranial nerves II through XII intact to gross examination, nonfocal Skin- warm and dry, no rashes/lesions/wounds noted Psych-unarousable unassessable., Lab and Diagnostics Result Diagram: 12/28/16 0500 12/28/16 0500 X-Rays, CTs and MRIs Date of Service: 12/25/16 1328 PROCEDURE: CT BRAIN WITHOUT CONTRAST ([id number]) IMPRESSION: 1. No intracranial hemorrhage or mass effect. 2. Moderate to severe cerebral volume loss with enlargement of the ventricles slightly out of proportion to the sulci raising the possibility of normal pressure hydrocephalus. Recommend correlation clinically and further evaluation with a nuclear medicine cisternogram if indicated. 3. Suggestion of hypoattenuation in the right brainstem with evaluation limited due to streak artifact. If clinical concern persists, further evaluation may be obtained with MRI. Dictated by: Maico Fuchs M.D. on 12/25/2016 at 14:15 Approved by: Maico Fuchs M.D. on 12/25/2016 at 14:18 Date of Service: 12/25/16 1228 PROCEDURE: X-RAY CHEST ONE VIEW, PORTABLE ([id number]) IMPRESSION: 1. Stable appearance of bilateral opacities and pulmonary vascularity. As previously noted, findings are suggestive of edema with likely superimposed airspace disease such as pneumonia. Dictated by: Irene Sandhu M.D. on 12/25/2016 at 13:10 Approved by: Irene Sandhu M.D. on 12/25/2016 at 13:11 Assessment & Plan 86-year-old female with a history of dementia admitted 12/25 with a picture of sepsis and was started on IV fluids nor a mammogram and vancomycin Possible care associated pneumonia, POA. on meropenem and vancomycin when I meet her 12/28 . naris swab for MRSA. negative whether or not her infiltrates or residual or new infiltrates. high risk for aspiration pneumonia so levofloxacin and Flagyl Infectious disease consultation 12/28 Re: Antibiotics Possible urinary tract infection, POA. 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 prn anxiolytics if necessary Patient was unconscious in the morning and now is agitated and cannot keep lines and or stay in bed. Dysphagia and intermittent choking. Acute on chronic. POA. ?pt would not pursue if it seems chronic and irreversible?? max dysphagia mechanical textures, thin liquids, and 1:1 feed of one item at a time to decrease anxiety. If pt demonstrates dysphagia tray should be held and PO intake should be reintroduced at a later time. . DNR/DNI First day meeting medically complex patient 12/28 GI Prophylaxis: Not indicated VTE Prophylaxis: Sub-Q Enoxaparin VTE Mechanical Devices: Intermittant Pneumatic CD Resuscitation Status: DNR/DNI:Do Not Resuscitate/Intubate (as documented in recent hospital stay.) Antelmo Camara MD December 28, 2016 15:48 Antelmo Camara MD December 28, 2016 15:48
--- NOTE | 2016-12-28 16:04 | NUR ---
CAPRICE signed Addendum: 12/28/16 at 1620 by ADRIANA DUNHAM SATNAM called daughter Ирина (AMANDA) to go over CAPRICE. Daughter was in agreement to understanding her right to appeal discharge if she felt necessary.
--- NOTE | 2016-12-28 16:22 | CONS ---
[address] [address] CONSULTATION REPORT PATIENT: SUAD CHARLES : 1930 MR#: [id number] ADMIT: 12/25/2016 JOB ID: [id number] DATE OF SERVICE: 12/28/2016 INFECTIOUS DISEASE CONSULT: I thank Dr. Brian Leroy for this timely consult. REASON FOR CONSULTATION: Altered mental status, possible urinary tract infection in a demented elderly female. HISTORY OF THE PRESENT ILLNESS: The patient is an 86-year-old woman with longstanding mild to moderate dementia who lives in an assisted living facility. Apparently, she is capable of producing some interactive speech, though she is fairly demented. She is able to get up and walk around at times. She was admitted briefly to this facility earlier this month, in fact last week, with a possible UTI and leukocytosis. The patient's daughter reported a long history of recurrent UTIs at the time of her admission last week. The patient was treated with ceftriaxone and switched to Keflex at the time of discharge. It was also noted during her last admission last week that she had chronic urinary retention, which was thought to be contributing to her UTIs. Urology was consulted. Recommended a Solomon be placed and that the patient have an outpatient followup with Urology which was done. It was noted that during her hospital stay last week that her mental status returned basically to normal which is quite impaired, and she was sent out with recommendation for oral Keflex. Her discharge occurred on or about December 24 and just a day or two later on December 25, she presented to the ED with additional mental status changes. It was reported that she had a fever of 100.4 at the memory unit and that she was becoming again more confused and agitated. Because of that she was readmitted to this facility and has been started on very broad-spectrum antibiotics including meropenem and vancomycin. The patient has apparently improved a bit over the last couple of days here in the hospital but according to her daughter, who just left but was speaking to the nurses about this, the patient's mental status is still far below her normal, somewhat impaired baseline. For her part, the patient this afternoon is grossly confused. She can tell me about her early life in [place] and using very short sentences but beyond that, she is completely disoriented, confused and is talking about blue sparrows flying through the room and other confusing historical details. She is not able to answer any questions about her current symptoms. PAST MEDICAL HISTORY: 1. Dementia. 2. Recurrent UTIs. 3. Possible history of CHF, though apparently not confirmed. 4. Bilateral hip replacements. 5. Prior cholecystectomy. SOCIAL HISTORY: The patient is a nondrinker and nonsmoker. Lives in a senior living for people with memory problems. FAMILY HISTORY: Unobtainable due to her dementia. REVIEW OF SYSTEMS: Unobtainable due to dementia. PHYSICAL EXAMINATION: Reveals an afebrile woman. Note that she has been afebrile really throughout this admission. It appears she was discharged just on the and returned on the . When she came back to the ED on December 25, her temperature was 37.6, which would be not quite a fever and since then, she has been completely afebrile with temperatures really below 37. Current pulse is in the 80s to 100, and it is irregular and difficult to calculate. Respiratory rate is in the mid teens, blood pressure 147/65. She is saturating pretty well on 2 L by nasal prongs. The patient has no evidence of head trauma. No conjunctivitis. No scleral icterus. Her oral cavity is unremarkable. No thrush or pharyngitis. Her neck is reasonably supple for her advanced age. Her neck is nontender without adenopathy. Her lungs are difficult to examine, as she does not follow our request to take a deep breath but there does seem to be decreased movement on both sides with a few crackles perhaps. Cardiac tones: Irregular rate and rhythm without much murmur. The abdomen is soft and nontender without organomegaly. A Solomon catheter is present. There is no suprapubic fullness. The patient moves her upper extremities quite well and is currently reaching for objects which are not apparent to the examiner. Her lower extremities also move quite well. There is no evidence for ischemic ulcers on her lower or upper extremities. No evidence for cellulitis. No significant edema. Her extremities seem well perfused. Neurologic exam cannot be done because of her altered mental status. There is no evidence of synovitis. LABORATORY STUDIES: Include white count when she left the last time 10,000. This time on this readmission her white count has been right around 11,500. Diff with a mild left shift. Platelets normal at 346. Creatinine 0.51. Albumin 3.2. Procalcitonins have been negative both on the last admission last week and this week with all values less than 0.1. Vancomycin trough is a bit reasonable. Micro studies include MRSA PCR which is negative, blood cultures which are negative and urine which showed 11-50 white cells and grew an ESBL. The cultures from the last admission included a proteus, which was fairly resistant but was sensitive to Keflex, and that was the only positive from the last admission last week. The blood cultures were negative then, too. A chest x-ray done today shows pulmonary edema and/or diffuse pneumonia. An abdominal and pelvic CT on the when she was readmitted shows prominent diverticula through the colon and patchy areas of opacity in the lower lungs. IMPRESSION: This is an extremely unfortunate elderly woman who is having progressive memory loss due to dementia. She was admitted last week to this facility for what appeared to be a proteus urinary tract infection, which was treated with ceftriaxone and Keflex with some improvement in her mental status and she was discharged. This week she is back with more altered mental status after just spending a day or two back at the [facility] facility. The concerns have been does she have a healthcare-associated pneumonia, another urinary tract infection or both? The patient has really no fever, minimal leukocytosis and does not appear in any way short of breath nor has she been observed to cough. I reviewed her chest x-ray, and I think it just shows some scattered infiltrates with a very poor inspiratory effort and I am not at all convinced that with these negative procalcitonins and clinical parameters that she has any pulmonary infection. 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 I do not see any other obvious focus of infection. RECOMMENDATIONS: 1. We can discontinue the vancomycin, as it serves no purpose here. 2. I would also discontinue the meropenem, as it is overly broad. 3. The best drug for these ESBL E. coli organisms is undoubtedly ertapenem and will prescribe that. A 10 day or so course would probably be appropriate. If we need to shorten that, we could perhaps move to fosfomycin to complete our antibiotic therapy. 4. Will continue to follow this patient with you.
[2016-12-28] MEDS: Ertapenem Inj 1,000 MG in 0.9% Sodium Chloride 50 ML IV SCH (20:12)
[2016-12-28] MEDS: LORazepam 0.5 mg Tablet PO PRN (20:16)
[2016-12-29] VITALS (7 sets, daily range): BP systolic 155–159; BP diastolic 70–82; PULSE 56–86; RESP 16–18; O2SAT 96–99
--- NOTE | 2016-12-29 00:31 | NUR ---
ToñaFib/ paged application technical designer notified this RN that pt. converted to A- Fib. Stat EKG done, and confirmed A-Fib. Pt's vital signs: BP 150/67. Pulse 63. 36.7C. 18 RR. 96% on 3 liters of O2 NC. Blood sugar 97. Jeannine VERA night hospitalist paged. No new orders at this time. Will continue to monitor.
[2016-12-29] MEDS: 0.9% Sodium Chloride 1,000 ML IV SCH (04:52)
[2016-12-29] MEDS: MeTOProlol XL 50 mg ER24 Tablet PO SCH (08:30)
[2016-12-29] MEDS: Pantoprazole 40 mg ER24 Tablet PO SCH ×2 (08:30→19:29)
--- NOTE | 2016-12-29 11:41 | PCM.PNMED ---
Subjective Date of Service December 29, 2016 Subjective Patient unconscious again this morning after having a agitated evening does not sound when she was lucid or coherent could make her needs known and any point in time. Exam Vital Signs Vital Sign - Last Date Time Temp Pulse Resp B/P Pulse Ox O2 Delivery O2 Flow Rate FiO2 12/29/16 08:33 82 18 98 Nasal Cannula 3.00 12/29/16 05:34 36.6 157/70 Intake and Output 12/28/16 12/28/16 12/29/16 Cumulative From/Thru 15:00 23:00 07:00 12/25/16 15:05 - 12/29/16 06:02 Intake Total 194 ml 825 ml 978 ml 5857 ml Output Total 2300 ml 350 ml 5200 ml Balance 194 ml -1475 ml 628 ml 657 ml Intake Oral 336 ml 200 ml 1556 ml IV Total 194 ml 489 ml 778 ml 4301 ml Output Urine Total 2300 ml 350 ml 5200 ml # Bowel Movements 1 0 3 Exam Gen.-Obese female sleeping in bed not arousable to gentle voice or physical stimuli. No apparent distress. Eyes-close normal lids, no drainage ENT- ears normal, nose normal Neck- trach midline CVS- RRR no murmur or gallop Lungs- CTA GI- NABS/NT soft Musc- moving 4 no obvious deformity Neuro- cranial nerves II through XII intact to gross examination, nonfocal Skin- warm and dry, no rashes/lesions/wounds noted Psych-unarousable unassessable., Lab and Diagnostics Result Diagram: 12/28/16 0500 12/28/16 0500 X-Rays, CTs and MRIs Date of Service: 12/25/16 1328 PROCEDURE: CT BRAIN WITHOUT CONTRAST ([id number]) IMPRESSION: 1. No intracranial hemorrhage or mass effect. 2. Moderate to severe cerebral volume loss with enlargement of the ventricles slightly out of proportion to the sulci raising the possibility of normal pressure hydrocephalus. Recommend correlation clinically and further evaluation with a nuclear medicine cisternogram if indicated. 3. Suggestion of hypoattenuation in the right brainstem with evaluation limited due to streak artifact. If clinical concern persists, further evaluation may be obtained with MRI. Dictated by: Maico Fuchs M.D. on 12/25/2016 at 14:15 Approved by: Maico Fuchs M.D. on 12/25/2016 at 14:18 Date of Service: 12/25/16 1228 PROCEDURE: X-RAY CHEST ONE VIEW, PORTABLE ([id number]) IMPRESSION: 1. Stable appearance of bilateral opacities and pulmonary vascularity. As previously noted, findings are suggestive of edema with likely superimposed airspace disease such as pneumonia. Dictated by: Irene Sandhu M.D. on 12/25/2016 at 13:10 Approved by: Irene Sandhu M.D. on 12/25/2016 at 13:11 Assessment & Plan 86-year-old female with a history of dementia admitted 12/25 with a picture of sepsis UTI/HAP 12/29 patient not a good therapy candidate will attempt to mobilize as able, do respiratory care and stimulate her as possible during the day so perhaps she will sleep at night. Possible care associated pneumonia, POA. on meropenem and vancomycin 12/28 d/c'd by ID . naris swab for MRSA. negative 12/29 -Infectious disease consultation 12/28 appreciated thank you -Ertapenem 12/28-01/[address] Rich/NAEEM ESBL UTI- Ertapenem 12/28-01/[address] Rich/ID -Present on admission CAUTI from chronic indwelling catheter Chronic urinary catheter present on admission advanced dementia, POA- sitter. prn. Patient either unconscious or agitated -Zyprexa IM when necessary not taking by mouth -We will attempt to minimize external irritants Dysphagia and intermittent choking. Acute on chronic. POA. ?pt would not pursue if it seems chronic and irreversible?? max dysphagia mechanical textures, thin liquids, 1:1 feed of one item at a time to decrease anxiety. If pt demonstrates dysphagia tray should be held and PO intake should be reintroduced at a later time. . DNR/DNI We will attempt to speak with daughter today are a end-of-life planning and goals of care. GI Prophylaxis: Not indicated VTE Prophylaxis: Sub-Q Enoxaparin VTE Mechanical Devices: Intermittant Pneumatic CD Resuscitation Status: DNR/DNI:Do Not Resuscitate/Intubate (as documented in recent hospital stay.) Antelmo Camara MD December 29, 2016 11:41
[2016-12-29] MEDS: Ertapenem Inj 1,000 MG in 0.9% Sodium Chloride 50 ML IV SCH (12:03)
--- NOTE | 2016-12-29 12:31 | NUR ---
spiritual care: family concern conversational visit; dtr sought impregnator helper support as she sifts through medical plan and concerns about care. provided written resources and exploration of palliative vs hospice vs rehab pathways. dtr said pt would be agreeable for [facility].
--- NOTE | 2016-12-29 13:14 | PROG NOTE ---
[address] [address] PROGRESS NOTE PATIENT: SUAD CHARLES : 1930 MR#: [id number] ADMIT: 12/25/2016 JOB ID: [id number] DATE: 12/29/2016 INFECTIOUS DISEASE FOLLOW UP NOTE: REASON FOR FOLLOWUP: ESBL E. coli urinary tract infection in a woman with underlying dementia and mental status changes. Today I am unable to arouse the patient. The nurse tells me that earlier this morning she was interactive for a few minutes and then fell back into a very lethargic sleeping state. I was able to examine the patient without her actually opening her eyes which is quite a decrease in her mental status as compared to yesterday. This case discussed with nurses. PHYSICAL EXAMINATION: Reveals an afebrile, sleeping woman. Temperature 36.6, pulse 82, respiratory rate 18, blood pressure 157/70. She is saturating well but on 3 L. Eyes without apparent abnormality. Lungs relatively clear posteriorly with only fair air movement, however. Cardiac tones unchanged from yesterday. Abdomen seems benign though I cannot assess tenderness as she is not awake. LABORATORIES: Include a white count of 11,000. That was done yesterday. Creatinine yesterday 0.51. LFTs are normal. Procalcitonin 0 x2. Urinalysis 11-50 white cells. Micro studies include negative MRSA screen of the nares, negative blood cultures and a urine which grew E coli which turned out to be an ESBL. A chest x-ray done yesterday shows pulmonary edema and/or diffuse pulmonary infiltrates. IMPRESSION: The unfortunate elderly woman with progressive memory loss due to dementia who had a decline in her prior level of function and was evaluated here. She was admitted with what appears to be a UTI and this is the second UTI she has been admitted for in the past two or three weeks. This is an ESBL organism which will require either ertapenem IV or perhaps towards the end of therapy fosfomycin orally to treat. RECOMMENDATIONS: 1. The patient received meropenem starting on the and that was switched yesterday to ertapenem so she has had a total of four days of effective therapy against her ESBL. We should continue with the meropenem through the . 2. This can be done either here or at the long term facility. 3. This would give us a total of 10 days of affective therapy of meropenem and/or ertapenem which would both be excellent for this organism. 4. I have nothing else to add in this case so I will go ahead and sign off at this time but thank you very much.
--- NOTE | 2016-12-29 13:25 | NUR ---
NUTRITION FOLLOW-UP: ASSESS: Pt is an 86yo F admitted for pneumonia and possible UTI. Pt has been evaluated by ST and placed on dysphagia mechanical diet with max assist. Pt has dementia and PO intake varies depending on mentation. PO is bites-50%. Wt has been stable over the last month. PMHX: Dementia, UTI LABS: Reviewed. 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 GI: BMx2 12/28 SKIN: Heath 13 CURRENT WTS: 72.2kg, BMI 30.1kg/m2, IBW 47.7kg DIET: Dysphagia mechanical, thin liquids. PO bites-50% EST. NEEDS: BMI Kcals: 1445-1585kcal/day (20-22kcal/kg) Pro: 55-70g/day (1.2-1.5g/kg IBW) NUTRITION DIAGNOSIS: 1.) Chew/swallow difficulty related to dementia as evidence by variable mentation and need for dysphagia mechanical diet per ST. --PERSISTS NUTRITION INTERVENTION: 1.) Diet per ST 2.) Will add Ensure on all trays, continue to encourage PO intake MONITOR / EVAL: PO, ST, wt, GI, labs, POC, nutrition status. Will continue to monitor per moderate nutrition risk guidelines
--- NOTE | 2016-12-29 15:17 | NUR ---
Social Work: Continued Discharge Planning D: Pt is on day 4 of hospitalization. Pt has dementia at baseline. MD recommends SNF. PT cleared pt and recommends pt discharge back to [facility]. SW noted multiple barriers to SNF placement during interdisciplinary rounds. PT notes state pt is not a candidate for further rehab. PT noted that pt attempted to rip off NC after returning to bed. EMR reflected pt was agitated and not skillable at this time due to current mentation. Pt was agitated with IV during the night and required IV Ativan and a sitter per the RN. Pt started IVABX on 12/25 (Meropenem) and was switched to Ertapenem on 12/[address] Rich's progress note dated 12/29. Dr Rich will keep pt on IV Ertapenem through 01/03. Pt will not be accepted to SNF on IVABX Ertapenem. SNF will also not accept pt until she has been without a sitter for 24-48 hours. SW discussed barriers to SNF placement at this time with pt's daughter Ирина Uribe (DPOA). SW explained that pt is not likely to discharge today and encouraged daughter to consider back up plan if pt is not accepted to SNF when ready to discharge due to current SNF placement barriers. SW discussed possibility of going back to [facility] and hiring a 24/7 caregiver, infusion services for IVABX, and HH if pt was still on IVABX. Daughter stated pt doesn't have funds available for 24/7 caregiver or infusion services at home. SW discussed possibility of [place] [facility] daughter was concerned about pt's safety at [facility] without 24/7 caregiver. Daughter is concerned that given pt's mentation and agitation at the hospital, pt will try remove IVABX PICC line if pt is left alone at home. SATNAM spoke with Dr. Camara and Dr. Rich to determine if pt would remain in hospital throughout duration of IVABX. Both providers thought it was likely pt would remain in hospital for the remainder of IVABX due to medical complexity. A: Pt who has dementia at baseline and for whom IVABX through 01/03 and a SNF have been deemed medically necessary. P: Pt will need IVABX through 01/[address] Rich. Pt currently has multiple barriers for a SNF placement including IVABX Ertapenem, a sitter in the last 24 hours, and IV Ativan in the last 24 hours. SATNAM spoke with pt's daughter and explained barriers to placement. Daughter is agreeable and understands that pt will not likely be discharged today or tomorrow. SW and daughter agreed to see how pt progresses in the next 24-48 hours to determine discharge plan. Pt does not have funds for infusion services for IVABX or 12/03 caregiver to monitor. Daughter would like pt to discharge to SNF ([facility]) when medically stable. SW will continue to follow to determine pt progress and discharge plan. RAZA Magana Addendum: 12/29/16 at 1630 by ADRIANA HARRIS SATNAM contacted [facility] to inform facility that pt was in hospital and will be here on IVABX through 01/03. SATNAM spoke with pt's nurse, Amanda who confirmed that patient does not need to be assessed prior to returning to [facility] because "she is already one of ours." Amanda did note that in general, pt's can't return on IVABX. If she returns with catheter, she would need to return with emergency catheter kit. RAZA Magana
--- NOTE | 2016-12-29 15:18 | NUR ---
Drowsy/Resp Patient has been sleeping for most of shift. Refused lunch. Patient is arousable to touch and name and has been able to answer "yes" or "no" questions appropriately. Oral medications held due to drowsiness. IV and SubQ medications administered. Continuing to encourage oral intake, Q2 turns, and frequent rounding. Bilateral lung sounds decreased and rhonchi heard in right upper lobe. 3L O2 via nasal canula. Frequent encouragement of coughing and deep breaths. Q2 turns.
[2016-12-29] MEDS: Albuterol-Ipratropium 3 mL Inhalation Solution NEB SCH ×2 (16:00→20:38)
[2016-12-29] MEDS ORDERED: Vancomycin Serum Trough XX ONE (21:00)
--- NOTE | 2016-12-29 22:06 | NUR ---
PO medications PO medications held this shift r/t patients drowsiness and not safely being able to administer medications by mouth. Patient answers yes or no questions, but does not follow commands, or open eyes to verbal or tactile stimuli. Eye drops administered per MD orders. Patient on Q2hr turns. Addendum: 12/30/16 at 0246 by DEBBI CHONG RN Per monitoring analyst, patient converted into a-fib. DATI page sent to Dr. Paez. BP- 134/73, HR 103. No new orders at this time. Patient noted to be fidgety and anxious. Ativan 1mg IVP given with effective results.
[2016-12-30 00:47] VITALS: BP 167/73; PULSE 67; RESP 12; O2SAT 96
[2016-12-30 02:29] VITALS: BP 134/72; PULSE 106
[2016-12-30 05:09] VITALS: BP 174/69; PULSE 73; RESP 16; O2SAT 97
[2016-12-30] MEDS: Albuterol-Ipratropium 3 mL Inhalation Solution NEB SCH ×2 (06:00→21:00)
[2016-12-30] MEDS: Pantoprazole 40 mg ER24 Tablet PO SCH ×2 (08:30→20:30)
[2016-12-30] MEDS: Ertapenem Inj 1,000 MG in 0.9% Sodium Chloride 50 ML IV SCH (09:05)
[2016-12-30] MEDS: MeTOProlol XL 50 mg ER24 Tablet PO SCH (09:34)
--- NOTE | 2016-12-30 10:30 | NUR ---
CAPRICE signed by DPOA and NOK as pt is unable to sign. Ning Eckert, MARKETING AUTOMATION MANAGER
[2016-12-30 10:58] VITALS: PULSE 106
--- NOTE | 2016-12-30 14:00 | PCM.ADCARE ---
Advance Care Planning Note Purpose of Encounter: Delineate goals of care Parties in Attendance: Patient and daughter/POA Decisional Capacity: Patient does not have decisional capacity Subjective: Patient is chronically anxious when she is awake, otherwise somnolent and has not been having good oral intake. Objective: See physical exam from today's progress note Goals of Care Determinations: DO NOT RESUSCITATE with no desire to return patient to prior level of function where she went to meals, sat at bingo and sort of participated. Primarily it is not hasten . Plan: Psychiatric consult being ordered to help adjust psychiatric medications. Patient has chronic anxiety was well managed for a long period of time with Zoloft 100 mg, got changed to Prozac she is up to 80 mg and daughter states this has not helped. She had been tried on Seroquel this cause QT prolongation and was discontinued. To date this has been managed by nurse practitioner and there has been no psychiatry consult so I am going to order that. Daughter is agreeable to hearing from hospice and also palliative care if they may have ideas as to how better to manage the anxiety if psychiatric medication interventions are not helpful. CODE STATUS: DO NOT RESUSCITATE/DO NOT INTUBATE Time Spent Adv.Care Plannin minutes Adv. Care Plan Documenation: Plan is to complete the per The ertepanem. This in itself may be causing sedation/stupor and reassess the patient. For now we will do supportive care with IV fluids finish a course of antibiotics and then determine patient disposition depending on how she recovers. She essentially is not transferable while she is on this IV antibiotic. The goal would be to return her back to her prior living facility if at all possible with other supportive care. Stupor- daughter has noted stepwise decline in patient's condition and understands that this may just be one of the steps of the deterioration that she is observed. Atrial fibrillation- daughter does not want her anticoagulated and understands that this may be the cause of the stepwise deterioration as patient may be having small strokes ESBL uti-complete the course of ertapenem and then determine what can be done next. Urinary retention- continue with indwelling Solomon catheter for now. If the patient recovers daughter may get patient to the urologist to do trial of voiding. Antelmo Camara MD December 30, 2016 14:00
--- NOTE | 2016-12-30 14:06 | PCM.PNMED ---
Subjective Date of Service December 30, 2016 Subjective Patient poorly verbal unable to make needs known Exam Vital Signs Vital Sign - Last Date Time Temp Pulse Resp B/P Pulse Ox O2 Delivery O2 Flow Rate FiO2 12/30/16 10:58 106 12/30/16 09:23 Supplement Oxygen 12/30/16 05:09 36.7 16 174/69 97 3.00 Intake and Output 12/29/16 12/29/16 12/30/16 Cumulative From/Thru 15:00 23:00 07:00 12/25/16 15:05 - 12/30/16 05:52 Intake Total 617 ml 0 ml 6474 ml Output Total 300 ml 350 ml 5850 ml Balance 317 ml -350 ml 624 ml Intake Oral 0 ml 0 ml 1556 ml IV Total 617 ml 4918 ml Output Urine Total 300 ml 350 ml 5850 ml # Bowel Movements 0 1 4 Exam Gen.-Obese female sleeping in bed not arousable to gentle voice or physical stimuli. No apparent distress. Eyes -Open, conjunctiva clear, no drainage ENT- ears normal, nose normal Neck- trach midline CVS- RRR no murmur or gallop Lungs- bibasilar crackles possibly worse on the right, no accessory muscle usage no evidence of respiratory distress GI- NABS/NT soft Musc- moving 4 no obvious deformity Neuro- cranial nerves II through XII intact to gross examination, nonfocal Skin- warm and dry, no rashes/lesions/wounds noted Psych-wakes up, seems very anxious, tremulous and tearful cannot really make needs or fears known Lab and Diagnostics Result Diagram: 12/28/16 0500 12/28/16 0500 X-Rays, CTs and MRIs Date of Service: 12/25/16 1328 PROCEDURE: CT BRAIN WITHOUT CONTRAST ([id number]) IMPRESSION: 1. No intracranial hemorrhage or mass effect. 2. Moderate to severe cerebral volume loss with enlargement of the ventricles slightly out of proportion to the sulci raising the possibility of normal pressure hydrocephalus. Recommend correlation clinically and further evaluation with a nuclear medicine cisternogram if indicated. 3. Suggestion of hypoattenuation in the right brainstem with evaluation limited due to streak artifact. If clinical concern persists, further evaluation may be obtained with MRI. Dictated by: Maico Fuchs M.D. on 12/25/2016 at 14:15 Approved by: Maico Fuchs M.D. on 12/25/2016 at 14:18 Date of Service: 12/25/16 1228 PROCEDURE: X-RAY CHEST ONE VIEW, PORTABLE ([id number]) IMPRESSION: 1. Stable appearance of bilateral opacities and pulmonary vascularity. As previously noted, findings are suggestive of edema with likely superimposed airspace disease such as pneumonia. Dictated by: Irene Sandhu M.D. on 12/25/2016 at 13:10 Approved by: Irene Sandhu M.D. on 12/25/2016 at 13:11 Assessment & Plan 86-year-old female with a history of dementia admitted 12/25 with a picture of sepsis UTI/HAP 12/29 patient not a good therapy candidate will attempt to mobilize as able, do respiratory care and stimulate her as possible during the day so perhaps she will sleep at night. 12/30 this is the most awake and seen the patient, daughter is concerned because this is the most sleepy she seen her mother. Please see advance care planning note. Psychiatry consult requested 12/30. I put in an order for social work regarding hospice consultation. Of care consultation may be beneficial if psychiatry consultation not helpful for patient's anxiety. For now we are going to finish treating with the ertapenem and see when this is discontinued the patient's mentation improved as a significant percentage of patients receiving it do experience agitation, confusion, disorientation, mental acuity decrease, somnolence, stupor) Possible care associated pneumonia, POA. on meropenem and vancomycin 12/28 d/c'd by ID . naris swab for MRSA. negative 12/29 -Infectious disease consultation 12/28 appreciated thank you -Ertapenem 12/28-? vs 01/07? per Dr Rich/ID ESBL UTI- Ertapenem 12/28-01/[address] Rich/ID -Present on admission CAUTI from chronic indwelling catheter A. fib-no plan for treatment, DC telemetry Chronic urinary catheter present on admission advanced dementia, POA- sitter. prn. Patient either unconscious or agitated -Psychiatry consult requested 12/30 -Zyprexa IM when necessary not taking by mouth -We will attempt to minimize external irritants Dysphagia and intermittent choking. Acute on chronic. POA. ?pt would not pursue if it seems chronic and irreversible?? max dysphagia mechanical textures, thin liquids, 1:1 feed of one item at a time to decrease anxiety. If pt demonstrates dysphagia tray should be held and PO intake should be reintroduced at a later time. . DNR/DNI We will attempt to speak with daughter today are a end-of-life planning and goals of care. GI Prophylaxis: Not indicated VTE Prophylaxis: Sub-Q Enoxaparin VTE Mechanical Devices: Intermittant Pneumatic CD Resuscitation Status: DNR/DNI:Do Not Resuscitate/Intubate (as documented in recent hospital stay.) Antelmo Camara MD December 30, 2016 14:06
[2016-12-30] MEDS: D5 0.9% NaCl + KCl 20 mEq/L 1,000 ML IV SCH (17:20)
--- NOTE | 2016-12-30 19:42 | NUR ---
Skin/Activity Pt on Q2 turns and when turned at 0800 discovered telemetry box under pt's left hip. Indentation with non-blanchable redness in rectangle shape of telemetry box. Notified charge account authorizer and documented in chart. Continued to monitor throughout shift and site showed improvement. At end of shift two faint lines still on hip, no bruising noted. Right heel is also boggy, with blanchable redness, heel boot applied. Pt still weak and unable to get up. Pt still having periods of anxiety and tearfulness. Unable to get pt to eat food today, but would drink Ensure shakes. Metoprolol crushed and given in Ensure, other medications held due to pt not eating food.
[2016-12-30 20:00] VITALS: BP 151/55; PULSE 98; RESP 20; O2SAT 97
[2016-12-30] MEDS: LORazepam 0.5 mg Tablet PO PRN (21:44)
[2016-12-31 00:44] VITALS: BP 121/61; PULSE 88; RESP 16; O2SAT 96
--- NOTE | 2016-12-31 02:42 | NUR ---
PSYCH; anxiety, trembling arms and crying at beginning of shift. Ativan mixed in warm water given with good relief. - pt slept peacefully for about 4 hrs. Turned q 2hrs. No red stewart noted on left hip area now. Heel lift boot on right leg. Addendum: 12/31/16 at 0246 by HOLLY CHRISTIANSEN RN GI: ativan followed by some bites of applesauce taken.
[2016-12-31] MEDS: D5 0.9% NaCl + KCl 20 mEq/L 1,000 ML IV SCH ×2 (03:38→17:06)
[2016-12-31] MEDS: Albuterol-Ipratropium 3 mL Inhalation Solution NEB SCH ×2 (05:15→21:00)
[2016-12-31 05:28] VITALS: BP 137/68; PULSE 78; RESP 20; O2SAT 94
[2016-12-31 05:32] LABS: BASOPHILS % (AUTO) 0.3 % (0-3); EOSINOPHILS % (AUTO) 3.4 % (0-5); MONOCYTES % (AUTO) 7.2 % (4-12); Mean Corpuscular Hemoglobin 29.9 pg (27.0-35.0); Mean Corpuscular Volume 90.8 fL (81-100); NEUTROPHILS % (AUTO) 80.5 % (40-74); Platelet Count 343 bil/L (150-400)
[2016-12-31 05:56] LABS: Magnesium 2.1 mg/dL (1.6-2.6)
[2016-12-31 07:53] VITALS: BP 170/71; RESP 24; O2SAT 90
[2016-12-31] MEDS: MeTOProlol XL 50 mg ER24 Tablet PO SCH (08:30)
[2016-12-31] MEDS: Pantoprazole 40 mg ER24 Tablet PO SCH ×2 (08:30→20:30)
[2016-12-31] MEDS ORDERED: OLANZapine Zydis ODT 5 mg Tablet PO SCH (08:46)
[2016-12-31] MEDS ORDERED: 0.9% Sodium Chloride 250 ML ONE (08:57)
[2016-12-31] MEDS: Ertapenem Inj 1,000 MG in 0.9% Sodium Chloride 50 ML IV SCH (09:01)
[2016-12-31 09:12] VITALS: BP 145/79; PULSE 87; RESP 18; O2SAT 91
[2016-12-31] MEDS: LORazepam 0.5 mg Tablet PO PRN ×3 (10:55→23:39)
[2016-12-31 11:15] VITALS: BP 142/68; PULSE 88; RESP 20; O2SAT 96
--- NOTE | 2016-12-31 12:01 | PCM.PNMED ---
Subjective Date of Service December 31, 2016 Subjective pt was shivering, diaphoretic, confused denied pain, oriented to herself not able answer questions reported that pt is not tolerable to po awaits xray Exam Vital Signs Vital Sign - Last Date Time Temp Pulse Resp B/P Pulse Ox O2 Delivery O2 Flow Rate FiO2 12/31/16 09:12 36.7 87 18 145/79 91 Nasal Cannula 2.00 Intake and Output 12/30/16 12/30/16 12/31/16 Cumulative From/Thru 15:00 23:00 07:00 12/25/16 15:05 - 12/31/16 05:28 Intake Total 492 ml 160 ml 7126 ml Output Total 400 ml 500 ml 6750 ml Balance 92 ml -340 ml 376 ml Intake Oral 320 ml 160 ml 2036 ml IV Total 172 ml 5090 ml Output Urine Total 400 ml 500 ml 6750 ml # Bowel Movements 1 5 Exam frail elderly, very diaphoretic, sitting up on the bed, no accessory muscle use no JVD, MMM, no LAD RRR, nl s1, s2 no mrg poor inspiratory effort, no w,c S,ND,NT,normoactive BS+ warm, no edema, pulses 2/[address], no grimace in suprapubic area palpitation IVs and Medications Medications Reviewed: Medications were reviewed in detail Lab and Diagnostics Result Diagram: 12/31/16 0455 12/31/16 0455 X-Rays, CTs and MRIs Date of Service: 12/25/16 1328 PROCEDURE: CT BRAIN WITHOUT CONTRAST ([id number]) IMPRESSION: 1. No intracranial hemorrhage or mass effect. 2. Moderate to severe cerebral volume loss with enlargement of the ventricles slightly out of proportion to the sulci raising the possibility of normal pressure hydrocephalus. Recommend correlation clinically and further evaluation with a nuclear medicine cisternogram if indicated. 3. Suggestion of hypoattenuation in the right brainstem with evaluation limited due to streak artifact. If clinical concern persists, further evaluation may be obtained with MRI. Dictated by: Maico Fuchs M.D. on 12/25/2016 at 14:15 Approved by: Maico Fuchs M.D. on 12/25/2016 at 14:18 Date of Service: 12/25/16 1228 PROCEDURE: X-RAY CHEST ONE VIEW, PORTABLE ([id number]) IMPRESSION: 1. Stable appearance of bilateral opacities and pulmonary vascularity. As previously noted, findings are suggestive of edema with likely superimposed airspace disease such as pneumonia. Dictated by: Irene Sandhu M.D. on 12/25/2016 at 13:10 Approved by: Irene Sandhu M.D. on 12/25/2016 at 13:11 Assessment & Plan 86-year-old female with a history of dementia admitted 12/25 with a picture of sepsis UTI/HAP 12/29 patient not a good therapy candidate will attempt to mobilize as able, do respiratory care and stimulate her as possible during the day so perhaps she will sleep at night. 12/30 this is the most awake and seen the patient, daughter is concerned because this is the most sleepy she seen her mother. Please see advance care planning note. Psychiatry consult requested 12/30. I put in an order for social work regarding hospice consultation. Of care consultation may be beneficial if psychiatry consultation not helpful for patient's anxiety. For now we are going to finish treating with the ertapenem and see when this is discontinued the patient's mentation improved as a significant percentage of patients receiving it do experience agitation, confusion, disorientation, mental acuity decrease, somnolence, stupor) acute, active, ESBL UTI- UCX+, Present on admission CAUTI from chronic indwelling catheter -pt still has high% of Neut, stable wbc, awaits PCT, afebrile but very diaphoretic this AM -continue Ertapenem 12/28-01/[address] Rich/ID, signed off. Possible care associated pneumonia, POA. on meropenem and vancomycin 12/28 d/c'd by ID . naris swab for MRSA. negative 12/29 -Infectious disease consultation 12/28, no further tx for PNA -CXR today to follow up, pt was mildly hypoxic as well -O2 supplement as needed, target>95% -aspiration precaution, very high risk of aspiration PNA, pt could tolerate oral meds intermittently advanced dementia, POA- sitter. prn. Patient either unconscious or agitated -Psychiatry consult requested 12/30 -Zyprexa IM when necessary not taking by mouth -We will attempt to minimize external irritants chronic, stable A. fib-no plan for treatment, DC telemetry, metoprolol XR50 changed to tartrate 25mg bid for better oral intake Chronic urinary catheter present on admission Dysphagia and intermittent choking. Acute on chronic. POA. ?pt would not pursue if it seems chronic and irreversible?? max dysphagia mechanical textures, thin liquids, 1:1 feed of one item at a time to decrease anxiety. If pt demonstrates dysphagia tray should be held and PO intake should be reintroduced at a later time. . DNR/DNI appreciate SW to initiate hospice discussion ACP done by GI Prophylaxis: Not indicated VTE Prophylaxis: Sub-Q Enoxaparin VTE Mechanical Devices: Intermittant Pneumatic CD Resuscitation Status: DNR/DNI:Do Not Resuscitate/Intubate (as documented in recent hospital stay.) Time spent 35min Ellen Graf MD December 31, 2016 11:11
--- NOTE | 2016-12-31 12:05 | DRSVH ---
PROCEDURE: X-RAY CHEST ONE VIEW, PORTABLE ([id number]) INDICATIONS: probable aspiration, hypoxia TECHNIQUE: One view of the chest was acquired. COMPARISON: [facility], CR, XR CHEST 1VW (PORTABLE), 12/28/2016, 6:15. FINDINGS: Surgical changes and devices: Postsurgical changes are redemonstrated in the mediastinum. Lungs and pleura: There is pulmonary edema which appears slightly increased. There also medial patch y opacities which appear slightly increased. No pleural effusions or definite pneumothorax. There i s a prominent skin fold projecting over the right hemithorax. Mediastinum: Mediastinal contours appear unchanged. Heart size is normal. Bones and chest wall: No suspicious bony lesions. Overlying soft tissues appear unremarkable. IMPRESSION: 1. Slightly increased pulmonary edema as well as medial bibasilar patchy airspace opacities suggesti ve of aspiration given clinical history. Dictated by: Maico Fuchs M.D. on 12/31/2016 at 11:55 Approved by: Maico Fuchs M.D. on 12/31/2016 at 11:58
--- NOTE | 2016-12-31 14:39 | NUR ---
Social Work- Continued D/C Planning Data: EMR reviewed. Pt is on day 6 of hospitalization for ALOC, HCAP per H&P. Pt is not medically stable, anticipate multiple more days of admission as pt finishes antibiotics. Pt continues to receive IV ativan for extreme anxiety. Psychiatry has been consulted. Pt discussed in rounds, Hospitalist spoke with pt's daughter Ирина yesterday regarding code status, comfort care, and hospice. Hospitalist confirmed today that pt's daughter would like a hospice infovisit. POWER SHOVEL OPERATOR HELPER spoke privately with daughter Ирина today regarding this hospice infovisit, Ирина agrees that this would be beneficial. POWER SHOVEL OPERATOR HELPER spoke extensively with daughter related to pt's discharge plan, fpc care planning, SNF, skillable need, MCR, and hospice, answered questions to stated satisfaction. POWER SHOVEL OPERATOR HELPER provided written information regarding hospice. Pt to continue course of IV abx, anticipated to complete this course as an inpatient, then return to [facility], potentially with hospice services. [facility], Donna to check schedule and contact POWER SHOVEL OPERATOR HELPER with date and time of infovisit. T/C to [facility] RN Amanda regarding potential for pt to return on hospice, infovisit, and change in patient's baseline. Amanda agreeable to this, awaits further POWER SHOVEL OPERATOR HELPER communication regarding discharge plan. [facility] will likely require bedside assessment prior to patient's discharge due to patient's change in baseline level of functioning. POWER SHOVEL OPERATOR HELPER to facilitate this when necessary. Assessment: Pt who has dementia at baseline who requires IV abx Plan: Pt to receive hospice infovisit, date and time pending. POWER SHOVEL OPERATOR HELPER to follow up with pt's daughter when this has been scheduled. Pt to continue course of IV abx, anticipated to complete this course as an inpatient, then return to [facility], potentially with hospice services. POWER SHOVEL OPERATOR HELPER will continue to follow. RAZA Van Addendum: 12/31/16 at 1520 by MELODY DUNHAM T/C to Donna at [facility] infovisit tomorrow 01/01 at 1030 am. Daughter Ирина updated and agreeable to plan. Ning Eckert, POWER SHOVEL OPERATOR HELPER
--- NOTE | 2016-12-31 15:59 | NUR ---
Oral intake Poor swallow, holds food in front of mouth. Will swallow water and ensure. Med crushed in Ensure as able per pharmacy. MD aware some PO meds held and will change to crushable formulations as possible. She did eat some lunch (mashed potatos and chicken) with daughter feeding.
[2016-12-31] MEDS ORDERED: BusPIRone 15 mg Dividose Tablet PO SCH (20:30)
[2016-12-31 20:34] VITALS: BP 146/76; PULSE 84; RESP 18; O2SAT 96
--- NOTE | 2016-12-31 22:54 | PCM.CHPPSY ---
[facility] Date of Service December 31, 2016 Admission Date/Time December 25, 2016 at 17:05 Reason for Admission UTI/sepsis/mental status changes Admission Status: Voluntary Provider requesting consult: Antelmo Camara MD Primary Physician Attending Physician: Ruben Lei MD Other Physician: Source of Information: Patient Interview, Chart Review Chief Complaint Chief Complaint Patient is an 86 y.o. female with dementia admitted with mental status changes, UTI and sepsis. Patient unable to provide spontaneous chief complaint. Patient is an 86 y.o. female who was recently treated at the hospital for UTI, returned to her care facility, but remained confused with decreased level of consciousness and returned febrile with ongoing UTI and sepsis. The patient has been seen by ID and treated for infections but has not demonstrated an improvement in her mental status. While at her previous care facility, she was receiving olanzapine 5mg bid and 10mg at lunchtime. She also receives fluoxetine 80mg daily for anxiety and depression. Since being hospitalized, she has received olanzapine 5mg x 4. She has remained confused and unable to answer questions outside of endorsing anxiety and possibly auditory hallucinations. Patient is noted to be either quite sedated or agitated. Date of Service: 12/25/16 1328 PROCEDURE: CT BRAIN WITHOUT CONTRAST ([id number]) IMPRESSION: 1. No intracranial hemorrhage or mass effect. 2. Moderate to severe cerebral volume loss with enlargement of the ventricles slightly out of proportion to the sulci raising the possibility of normal pressure hydrocephalus. Recommend correlation clinically and further evaluation with a nuclear medicine cisternogram if indicated. 3. Suggestion of hypoattenuation in the right brainstem with evaluation limited due to streak artifact. If clinical concern persists, further evaluation may be obtained with MRI. Dictated by: Maico Fuchs M.D. on 12/25/2016 at 14:15 Approved by: Maico Fuchs M.D. on 12/25/2016 at 14:18 Presenting Symptoms: Psychosis (Months, presumably), Memory/Cognition ( Months), Dementia (Months), Delirium (Days) Allergies Coded Allergies: Penicillins (Verified Allergy, Unknown, 12/25/16) strawberry (Verified Allergy, Unknown, Hives, 12/25/16) Uncoded Allergies: PENICILLIN (Allergy, Mild, rash, 12/19/16) Home Medications Scheduled Acetaminophen (Acetaminophen) 500 Mg Tablet 500 MG PO BID (Reported) Last Taken: Unknown Dose on 12/24/16 Aspirin (Aspirin) 81 Mg Tablet 81 MG PO DAILY (Reported) Last Taken: Unknown Dose on 12/19/16 Cephalexin (Keflex) 500 Mg Capsule 500 MG PO BID Last Taken: Unknown Dose on 12/25/16 Cholecalciferol (Vitamin D3) (Vitamin D3 ) 2,000 Unit Tablet 2,000 UNIT PO DAILYWL (Reported) Last Taken: Unknown Dose on 12/19/16 Cholestyramine/Sugar Powder ( Cholestyramine/Sugar Powder) 378 Gm Powder 1 DOSE PO QAM (Reported) Last Taken: Unknown Dose on 12/19/16 Fluoxetine (Fluoxetine) 40 Mg Capsule 80 MG PO DAILY (Reported) Last Taken: Unknown Dose on 12/19/16 Lactobacillus Combo No.11 (Probiotic) 1 Each Cap.sprink 1 EACH PO QAM (Reported) Last Taken: Unknown Dose on 12/19/16 Latanoprost (Latanoprost) 2.5 Ml Drops 1 GTT BOTH_EYES HS (Reported) Last Taken: Unknown Dose on 12/24/16 Lorazepam (Lorazepam Oral Concentrate) 2 Mg/1 Ml Oral.conc 0.5 MG PO QID at 7am,11a,3p,8p (Reported) Last Taken: Unknown Dose on 12/24/16 Metoprolol Succinate ER (Metoprolol Succinate ER) 50 Mg Tab.er.24h 50 MG PO DAILY (Reported) Last Taken: Unknown Dose on 12/19/16 Nitrofurantoin Macrocrystal ( Nitrofurantoin Macrocrystal) 50 Mg Capsule 50 MG PO DAILY (Reported) Last Taken: Unknown Dose on 12/19/16 Olanzapine (Olanzapine) 20 Mg Tablet 10 MG PO DAILYWL (Reported) Last Taken: Unknown Dose on 12/19/16 Olanzapine (Olanzapine) 10 Mg Tablet 5 MG PO BID (Reported) Last Taken: Unknown Dose on 12/24/16 Omeprazole (Omeprazole) 20 Mg Capsule.dr 20 MG PO BID (Reported) Last Taken: Unknown Dose on 12/19/16 Potassium Chloride (Potassium Chloride) 10 Meq Tab.er.prt 10 MEQ PO every other day (Reported) TAKE WITH FOOD Last Taken: Unknown Dose on 12/18/16 Tamsulosin (Flomax) 0.4 Mg Capsule 0.4 MG PO DAILY Last Taken: Unknown Dose on 12/24/16 Scheduled PRN Acetaminophen (Acetaminophen) 325 Mg Capsule 650 MG PO Q4H PRN PRN For Pain ( Reported) Last Taken: Unknown Dose on 12/18/16 Albuterol Neb Soln (Albuterol Neb Soln) 1.25 Mg/3 Ml Vial.neb 1.25 MG INHALATION Q4H PRN PRN For Shortness of Breath ( Reported) Last Taken: Unknown Dose on Unknown Date & Time Albuterol Sulfate (Ventolin HFA Inhaler) 200 Puff/18 Gm Inhaler 2 PUFF INH QID PRN PRN For Wheezing ( Reported) Last Taken: Unknown Dose on Unknown Date & Time Bisacodyl (Dulcolax) 5 Mg Tablet.dr 5 MG PO DAILY PRN PRN For Constipation (Reported) Last Taken: Unknown Dose on Unknown Date & Time Fluconazole (Fluconazole) 150 Mg Tablet 150 MG PO once a month PRN PRN yeast infection (Reported) Last Taken: Unknown Dose on Unknown Date & Time Loperamide (Loperamide) 2 Mg Capsule 2 MG PO Q4H PRN PRN For Diarrhea or Loose Stool (Reported) Last Taken: Unknown Dose on Unknown Date & Time Lorazepam (Lorazepam Oral Concentrate) 2 Mg/1 Ml Oral.conc 0.5 MG PO q4 hours PRN PRN For Anxiety ( Reported) Last Taken: Unknown Dose on 12/18/16 Ondansetron (Ondansetron) 4 Mg Tablet 4 MG PO q6 hours PRN PRN For Nausea (Reported) Last Taken: Unknown Dose on Unknown Date & Time Discontinued Medications Cholestyramine (Questran Powder) 378 Gm Powd 9 GM PO DAILY (Reported) Furosemide (Furosemide) 20 Mg Tab 20 MG PO DAILY PRN PRN For HYPERtension ( Reported) Nitrofurantoin Macrocrystal (Nitrofurantoin Macrocrystal) 50 Mg Capsule 50 MG PO QID (Reported) Psychiatric Treatment History Unknown. Past Suicide Attempts Relevant History Not available. Past Medical History Past Medical/Surgical History Current and Past Current/Past: See hospitalist/ID notation. Multiple medical issues with UTI/sepsis Currently ?: No Mental Status Exam Vital Signs Vital Signs Date Time Temp Pulse Resp B/P Pulse Ox O2 Delivery O2 Flow Rate FiO2 12/31/16 20:34 37.0 84 18 146/76 96 Nasal Cannula 3.00 12/31/16 15:30 Supplement Oxygen Appearance: Unkept Attitude: Uncooperative Behavior: Distractible Affect: Blunted Mood: Anxious Thought Process/Associations: Other (minimal responses) Speech Production: Paucity Speech Rate: Lags/Latency Speech Articulation: Other (soft, difficult to understand.) Thought Content: Other (poverty of speech.) Danger to Self/Suicidal Ideati: None Danger to Others: None Hallucinations: Auditory (Endorses, possibly), Visual (Denies) Consciousness: Somnolent, Lethargic Orientation: Unable to assess Memory: Short Term Memory (Impaired), Untestable Estimate Intellectual Function: Unable to assess Attention/Concentration & Cogn: Impaired Insight: Unable to assess Judgement: Unable to assess Result Diagram: 12/31/1645412/31/16454 Mental Health Plan Patient is 86 y.o. female with dementia with worsening mental status in the context of UTI/sepsis. Patient has been treated with a combination of fluoxetine and olanzapine prior to admission. Low dose olanzapine does not appear to have been helpful with agitation, nor has high dose fluoxetine. Give age and medical status, patient may benefit from switch from olanzapine to risperidone to better manage psychosis and agitation. The additional high dose fluoxetine could increase her risk of serotonin syndrome and could benefit from reduction and potential switch to, or addition of buspirone. 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 Would discontinue olanzapine 2. Risperidone 1mg twice daily, could be switched to liquid if swallowing becomes problematic. 3. Reduce fluoxetine to 40mg dialy 4. Continue to treat underlying medical issues. 5. Consider buspirone for anxiety in the future as has shown some efficacy in this population. 6. Appreciate the opportunity to work with you on this patient. Please feel free to contact psychiatry with further questions. Tanvir Arias MD December 31, 2016 22:54 Scheduled PRN Acetaminophen (Acetaminophen) 325 Mg Capsule 650 MG PO Q4H PRN PRN For Pain ( Reported) Last Taken: Unknown Dose on 12/18/16 Albuterol Neb Soln (Albuterol Neb Soln) 1.25 Mg/3 Ml Vial.neb 1.25 MG INHALATION Q4H PRN PRN For Shortness of Breath ( Reported) Last Taken: Unknown Dose on Unknown Date & Time Albuterol Sulfate (Ventolin HFA Inhaler) 200 Puff/18 Gm Inhaler 2 PUFF INH QID PRN PRN For Wheezing ( Reported) Last Taken: Unknown Dose on Unknown Date & Time Bisacodyl (Dulcolax) 5 Mg Tablet.dr 5 MG PO DAILY PRN PRN For Constipation (Reported) Last Taken: Unknown Dose on Unknown Date & Time Fluconazole (Fluconazole) 150 Mg Tablet 150 MG PO once a month PRN PRN yeast infection (Reported) Last Taken: Unknown Dose on Unknown Date & Time Loperamide (Loperamide) 2 Mg Capsule 2 MG PO Q4H PRN PRN For Diarrhea or Loose Stool (Reported) Last Taken: Unknown Dose on Unknown Date & Time Lorazepam (Lorazepam Oral Concentrate) 2 Mg/1 Ml Oral.conc 0.5 MG PO q4 hours PRN PRN For Anxiety ( Reported) Last Taken: Unknown Dose on 12/18/16 Ondansetron (Ondansetron) 4 Mg Tablet 4 MG PO q6 hours PRN PRN For Nausea (Reported) Last Taken: Unknown Dose on Unknown Date & Time Discontinued Medications Cholestyramine (Questran Powder) 378 Gm Powd 9 GM PO DAILY (Reported) Furosemide (Furosemide) 20 Mg Tab 20 MG PO DAILY PRN PRN For HYPERtension ( Reported) Nitrofurantoin Macrocrystal (Nitrofurantoin Macrocrystal) 50 Mg Capsule 50 MG PO QID (Reported) Psychiatric Treatment History Age at onset: Estimated number of hospitalizations since onset of illness: What medications/treatments have been effective: What medications/treatments have been ineffective: Outpatient Treatment History: Past Suicide Attempts Relevant History Relevant Details: Age of First Attempt: Number of Attempts: Date of Last Attempt: Hx non-suicidal Self-Injury Relevant History Relevant History Details: Past Medical History Past Medical/Surgical History Currently ?: No Mental Status Exam Vital Signs Vital Signs Date Time Temp Pulse Resp B/P Pulse Ox O2 Delivery O2 Flow Rate FiO2 12/31/16 20:34 37.0 84 18 146/76 96 Nasal Cannula 3.00 12/31/16 15:30 Supplement Oxygen Result Diagram: 12/31/16 0455 12/31/16 0455 Mental Health Plan [place] AXIS I: AXIS II: AXIS III: AXIS IV: AXIS V: GAF (Score not range) Medications Medications to address General Physical Health Treatments Precautions Ordered: [ ] 1:1, [ ] Sharps, [ ] Assault, [ ] Elopement Treatment Plan for Suicidal Behavior: Other (Specify): Tanvir Arias MD December 31, 2016 22:54
[2016-12-31] MEDS: risperiDONE 1 mg Tablet PO SCH (23:40)
--- NOTE | 2017-01-01 03:21 | NUR ---
PSYCH; po ativan for restlessness around midnight- pt quieted down for about 2 hrs. the became increasingly restless/anxious, calling out for help and putting legs up on railing. Could not tell staff what was bothering her. Iv ativan given with evidence of effectiveness after about an hour. Asleep at this time.
[2017-01-01 05:53] VITALS: BP 120/79; PULSE 80; RESP 18; O2SAT 98
[2017-01-01] MEDS: Albuterol-Ipratropium 3 mL Inhalation Solution NEB SCH ×4 (06:00→17:22)
[2017-01-01 06:03] LABS: BASOPHILS % (AUTO) 0.3 % (0-3); EOSINOPHILS % (AUTO) 2.6 % (0-5); MONOCYTES % (AUTO) 7.1 % (4-12); NEUTROPHILS % (AUTO) 81.9 % (40-74); Platelet Count 348 bil/L (150-400)
[2017-01-01] MEDS: D5 0.9% NaCl + KCl 20 mEq/L 1,000 ML IV SCH ×2 (06:07→19:30)
[2017-01-01 06:28] LABS: Phosphorus 2.6 mg/dL (2.5-4.9)
[2017-01-01] MEDS: risperiDONE 1 mg Tablet PO SCH ×2 (08:14→20:15)
[2017-01-01] MEDS: Ertapenem Inj 1,000 MG in 0.9% Sodium Chloride 50 ML IV SCH (08:14)
[2017-01-01] MEDS: Pantoprazole 40 mg ER24 Tablet PO SCH ×2 (08:16→20:15)
[2017-01-01 08:38] VITALS: PULSE 81; RESP 22; O2SAT 85
--- NOTE | 2017-01-01 11:00 | NUR ---
NUTRITION FOLLOW-UP: ASSESS: Pt is an 86yo F admitted for pneumonia with high risk of aspiration. Pt has been evaluated by ST and placed on dysphagia mechanical diet with max assist. Pt has severe dementia and PO intake remains poor; is able to tolerate ensure and some foods, i.e. mashed potatoes. Psych following . Pt is DNR/DNI and daughter agreeable to hospice info. visit. Unclear goals of care in regards to nutrition support, will continue to follow. PMHX: Dementia, UTI LABS: Reviewed. K+3.4, Glu 126,Alb 3.0 MEDS: Reviewed. GI: BMx1 12/31 SKIN: Heath 13 CURRENT WTS: 65.6kg, BMI 27.3kg/m2, IBW 47.7kg Weight trending down DIET: Dysphagia mechanical, thin liquids. PO bites-10%. Decreasing EST. NEEDS: BMI Kcals: 1445-1585kcal/day (20-22kcal/kg) Pro: 55-70g/day (1.2-1.5g/kg IBW) NUTRITION DIAGNOSIS: 1.) Chew/swallow difficulty related to dementia as evidence by variable mentation and need for dysphagia mechanical diet per ST. --PERSISTS 2.) Inadequate oral intake related to altered mentation as evidenced by po intake 0-50% x 7d and decreasing weight. NUTRITION INTERVENTION: 1.) Diet per ST 2.) Continue Ensure on all trays, continue to encourage PO intake 3.) Recommend consideration nutrition support if po intake remains minimal x 24-48hrs pending goals of care. MONITOR / EVAL: Will re-evaluate pt once goals of care established/hospice visit in regards to potential nutrition support.F/U per high risk.
--- NOTE | 2017-01-01 11:37 | NUR ---
CAPRICE signed by pt's daughter AMANDA Gifford
--- NOTE | 2017-01-01 11:43 | NUR ---
Social Work: Continued Discharge Planning D: Pt is on day 7 of hospitalization. Pt has dementia at baseline. SW has been working with daughter (DPOA) Ирина Uribe. Daughter met with Mariah for Hospice Info. Visit. SW met with daughter to discuss discharge plan. Daughter would like pt to return to [facility] with Hospice once medically stable. Daughter was concerned about hearing conflicting information from SW regarding whether or not [facility] would accept pt back without bedside assessment. SATNAM placed call to [facility] and asked to speak to Director of Wellness, Selene Tucker, to clarify if pt will need bedside assessment before returning. [facility] who stated that pt's change in mentation may change whether or not she needs bedside assessment. SW left message with Director of Wellness and will update note once more information is gathered. Pt will remain in hospital throughout the duration of her IVABX per ID and hospitalist. Pt likely to discharge back to [facility] with Hospice once medically stable. A: Pt who has dementia at baseline. P: Pt will remain in hospital throughout the duration (through 01/03) of her IVABX per ID and hospitalist. Pt likely to discharge back to [facility] with Hospice. SW to follow-up with daughter once [facility] confirms whether or not pt will need bedside assessment prior to returning to [facility]. SW to amend note once [facility] Director of Wellness, Selene Tucker, confirms information. RAZA Magana Addendum: 01/01/17 at 1353 by ADRIANA DUNHAM SATNAM received T/C from Selene Tucker, Boiler Out at [facility]. Selene wanted to review psychiatric evaluation and progress notes for pt. Selene stated she didn't believe pt would require bedside assessment prior to returning but would be happy to review evaluation and progress notes prior to making final decision. SATNAM faxed information to [facility] and will follow-up with Selene at 1530 today. RAZA Magana Addendum: 01/01/17 at 1617 by ADRIANA HARRIS SS SATNAM spoke with Selene Tucker, coremaker floor/Wellness at [facility]. Selene reviewed psychiatric evaluation and progress notes and said she [facility] is able to take pt back on hospice without bedside assessment. Selene will be out of town on Sunday and Sunday and said to contact Ketty if we had any issues. Ketty fills in as the coremaker floor while Selene is away and will be updated on pt.
[2017-01-01 12:43] VITALS: PULSE 86; RESP 22; O2SAT 94
[2017-01-01] MEDS ORDERED: Furosemide 10 mg/mL 4 mL Inj IVPUSH ONE (13:00)
--- NOTE | 2017-01-01 15:01 | PCM.PNMED ---
Subjective Date of Service January 01, 2017 Subjective Patient seen and examined, patient is still communicating only minimally, and is sleeping most the day. Patient has been without incident overnight. Patient has extraneous lung sounds, and wheezes notibly on the right side. Exam Vital Signs Vital Sign - Last Date Time Temp Pulse Resp B/P Pulse Ox O2 Delivery O2 Flow Rate FiO2 01/01/17 12:43 86 22 94 Nasal Cannula 3.00 01/01/17 05:53 36.9 120/79 Intake and Output 12/31/16 12/31/16 01/01/17 Cumulative From/Thru 15:00 23:00 07:00 12/25/16 15:05 - 01/01/17 05:53 Intake Total 1530 ml 1022 ml 9678 ml Output Total 650 ml 550 ml 7950 ml Balance 880 ml 472 ml 1728 ml Intake Oral 200 ml 2236 ml IV Total 1530 ml 822 ml 7442 ml Output Urine Total 650 ml 550 ml 7950 ml # Bowel Movements 0 5 Exam Gen.-Obese female sleeping in bed not arousable to gentle voice or physical stimuli. No apparent distress. Eyes -Open, conjunctiva clear, no drainage ENT- ears normal, nose normal Neck- trach midline CVS- RRR no murmur or gallop Lungs- bibasilar crackles possibly worse on the right, accessory muscle usage which was not present after duonebs and lasix were given GI- NABS/NT soft Musc- moving 4 no obvious deformity Neuro- cranial nerves II through XII intact to gross examination, nonfocal Skin- warm and dry, no rashes/lesions/wounds noted Psych-wakes up, seems very anxious, tremulous and tearful cannot really make needs or fears known IVs and Medications Medications Reviewed: Medications were reviewed in detail Lab and Diagnostics Result Diagram: 01/01/17 0455 01/01/17 0455 X-Rays, CTs and MRIs Date of Service: 12/25/16 9118 PROCEDURE: CT BRAIN WITHOUT CONTRAST ([id number]) IMPRESSION: 1. No intracranial hemorrhage or mass effect. 2. Moderate to severe cerebral volume loss with enlargement of the ventricles slightly out of proportion to the sulci raising the possibility of normal pressure hydrocephalus. Recommend correlation clinically and further evaluation with a nuclear medicine cisternogram if indicated. 3. Suggestion of hypoattenuation in the right brainstem with evaluation limited due to streak artifact. If clinical concern persists, further evaluation may be obtained with MRI. Dictated by: Maico Fuchs M.D. on 12/25/2016 at 14:15 Approved by: Maico Fuchs M.D. on 12/25/2016 at 14:18 Date of Service: 12/25/16 1228 PROCEDURE: X-RAY CHEST ONE VIEW, PORTABLE ([id number]) IMPRESSION: 1. Stable appearance of bilateral opacities and pulmonary vascularity. As previously noted, findings are suggestive of edema with likely superimposed airspace disease such as pneumonia. Dictated by: Irene Sandhu M.D. on 12/25/2016 at 13:10 Approved by: Irene Sandhu M.D. on 12/25/2016 at 13:11 Assessment & Plan 86-year-old female with a history of dementia admitted 12/25 with a picture of sepsis UTI/HAP. Patient has been lethargic and sleepy for most of the day, and when awake does not provide much information to how she is doing. Patients daughter is at bedside acute, active, ESBL UTI- UCX+, Present on admission CAUTI from chronic indwelling catheter -pt still has high% of Neut, stable wbc, awaits PCT, afebrile but very diaphoretic this AM -continue Ertapenem 12/28-01/[address] Rich/ID, signed off. Possible care associated pneumonia - POA. on meropenem and vancomycin 12/28 d/c'd by ID . - nasal swab for MRSA. negative 12/29 -Infectious disease consultation 12/28, no further tx for PNA -CXR today to follow up, pt was mildly hypoxic as well -O2 supplement as needed, target>95% -aspiration precaution, very high risk of aspiration PNA, pt could tolerate oral meds intermittently Advanced dementia -Psychiatry consult requested 12/30 and completed, medication adjustments were made -Zyprexa IM when necessary not taking by mouth -We will attempt to minimize external irritants chronic, stable A. fib-no plan for treatment, - c/w metoprolol tartrate 25mg bid for better oral intake Chronic urinary catheter present on admission Dysphagia and intermittent choking - pt cleared by speech and swallow DNR/DNI appreciate SW to initiate hospice discussion ACP done by GI Prophylaxis: Not indicated VTE Prophylaxis: Sub-Q Enoxaparin VTE Mechanical Devices: Intermittant Pneumatic CD Resuscitation Status: DNR/DNI:Do Not Resuscitate/Intubate (as documented in recent hospital stay.) Attending Statement GI Prophylaxis: Not indicated VTE Prophylaxis: Sub-Q Enoxaparin VTE Mechanical Devices: Intermittant Pneumatic CD Resuscitation Status: DNR/DNI:Do Not Resuscitate/Intubate (as documented in recent hospital stay.) Time spent 35min Devaughn Corey MD January 01, 2017 15:00
--- NOTE | 2017-01-01 16:20 | NUR ---
Social Work: Readiness for Discharge D: EMR reviewed. Pt is on day 7 of hospitalization. Pt's daughter (DPOA) met with hospice and would like to return to [facility] and open hospice. Daughter was concerned about whether or not pt could return to [facility] without bedside assessment because she has heard conflicting information on different days. SATNAM spoke with Selene Tucker, assorter laundry/Wellness at [facility]. Selene reviewed psychiatric evaluation and progress notes and said [facility] is able to take pt back on hospice without bedside assessment. Selene also stated that she is the person to make these decisions, not the pt's RN. Selene will be out of town on 01/02 and 01/03 and said to contact Ketty if we had any issues. Ketty fills in as the assorter laundry while Selene is away and will be updated on pt. Pt to return to [facility] and open with hospice when medically stable. SATNAM will continue to follow. A: Pt for whom memory care has been deemed medically necessary. P: Pt will completed IVABX at hospital through 01/03. Pt to return to [facility] when medically stable. SATNAM confirmed with [facility] assorter laundry, Selene Tucker, that pt does not need bedside assessment to return and can open with hospice. Pt's daughter met with hospice on 01/01 and will open with hospice after pt is discharged. Pt to transport back to [facility] with daughter via POV when medically stable. RAZA Magana Addendum: 01/03/17 at 1359 by ADRIANA DUNHAM Pt anticipated to return to [facility] on 01/04 and open hospice. SW to update Ketty from [facility] on discharge time ([phone]). SW to update Meaghan from Hospice on discharge time ([phone]). No bedside assessment needed to return. Pt's daughter AMANDA has signed hospice consent form. RAZA Magana
[2017-01-01 17:22] VITALS: PULSE 79; RESP 24; O2SAT 95
--- NOTE | 2017-01-01 19:38 | NUR ---
Activity Pt very restless, tearful and grabbing at anything at beginning of shift. Ativan given and pt able to calm down. Medications crushed and given in Ensure. Pt had improving affect over course of shift and was able to answer questions, remain calm and even smile. This is a marked roving changer previous behavior of anxiety and shaking. Pt's coccyx has blanchable redness and maceration, mepilex applied and continue Q2 turns. Juanito left on bed and was leaking, saturating bed and daughter found it and was very upset. Able to talk with conveyor line battery charger and manager environmental services and was able to calm down.
[2017-01-01 20:12] VITALS: BP 138/70; PULSE 86; RESP 16; O2SAT 94
--- NOTE | 2017-01-01 23:17 | PCM.PNPSY ---
Subjective Date of Service January 01, 2017 Subjective Although agitated at the beginning of the shift, receiving lorazepam 1mg, she was more alert and engaged, PERRL 1.5-2mm, mild hyper reflexia. Patient had not received am fluoxetine, but had received last night's risperidone. Current Medications Current Medications Furosemide 40 mg ONCE ONCE IVPUSH Last administered on 01/01/17 13:41; Admin Dose 40 MG; Start 01/01/17 at 13:00; Stop 01/01/17 at 13:06; Status DC Metoprolol Tartrate 25 mg BID PO Last administered on 01/01/17 20:16; Admin Dose 25 MG; Start 12/31/16 at 10:55 Olanzapine 5 mg 5 mg BID PO Last administered on 12/31/16 10:36; Admin Dose 5 MG; Start 12/31/16 at 08:46; Stop 12/31/16 at 18:49; Status DC Risperidone 1 mg BID PO Last administered on 01/01/17 20:15; Admin Dose 1 MG; Start 12/31/16 at 20:30 Sodium Chloride 250 ml @ STK-MED ONCE .ROUTE Last administered on 12/31/16 09:02; Admin Dose 10 MLS/HR; Start 12/31/16 at 08:57; Stop 12/31/16 at 09:00; Status DC Mental Status Exam Vital Signs Vital Signs Date Time Temp Pulse Resp B/P Pulse Ox O2 Delivery O2 Flow Rate FiO2 01/01/17 20:27 Supplement Oxygen 01/01/17 20:12 37.0 86 16 138/70 94 Nasal Cannula 3.00 01/01/17 17:45 Supplement Oxygen 01/01/17 17:22 79 24 95 Nasal Cannula 3.00 Appearance: Unkept Attitude: Uncooperative Behavior: Distractible Affect: Restricted (but significantly brighter) Mood: Irritable (mild), Anxious Thought Process/Associations: Other (improved responses) Speech Production: Paucity Speech Rate: Lags/Latency Speech Articulation: Other (more easily understood) Thought Content: Other (poverty of speech.) Danger to Self/Suicidal Ideati: None Danger to Others: None Hallucinations: Auditory (Denies, difficult to assess), Visual (Denies) Consciousness: Somnolent (more alert) Orientation: Unable to assess Memory: Short Term Memory (Impaired), Untestable Estimate Intellectual Function: Unable to assess Attention/Concentration & Cogn: Impaired Insight: Unable to assess Judgement: Unable to assess Result Diagram: 01/01/17 0455 01/01/17 0455 Mental Health Plan Patient is 86 y.o. female with dementia with worsening mental status in the context of UTI/sepsis. Patient has been treated with a combination of fluoxetine and olanzapine prior to admission. Low dose olanzapine does not appear to have been helpful with agitation, nor has high dose fluoxetine. Give age and medical status, patient may benefit from switch from olanzapine to risperidone to better manage psychosis and agitation. The additional high dose fluoxetine could increase her risk of serotonin syndrome and could benefit from reduction and potential switch to, or addition of buspirone. Patient appears to have responded to discontinuation of olanzapine and initiation of risperidone. Fluoxetine held this morning as anxiety appears to have improved and may have been secondary to not tolerating dose. 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 Will discontinue fluoxetine and restart at lower dose or switch to buspirone 15mg bid which may be address anxiety and agitation. 2. Risperidone 1mg twice daily, could be switched to liquid if swallowing becomes problematic. 3. Will continue to follow until consistently stable presentation. 4. Appreciate the opportunity to work with you on this patient. Please feel free to contact psychiatry with further questions. Tanvir Arias MD January 01, 2017 23:17 Tanvir Arias MD January 01, 2017 23:17
[2017-01-02] VITALS (7 sets, daily range): BP systolic 127–154; BP diastolic 73–76; PULSE 67–94; RESP 18–24; O2SAT 91–98
--- NOTE | 2017-01-02 05:39 | NUR ---
Agitation Patient became agitated with out PRN Ativan, comforted with music and company until IV push calmed her down the rest of the way. Able to sleep well in between, cooperative with turns. Took medications crushed in pudding. No noted attempts to ambulate or crawl out of bed. Bed in low position, wheels locked. Intentional rounding, and Q2 turns.
[2017-01-02] MEDS: Albuterol-Ipratropium 3 mL Inhalation Solution NEB SCH ×3 (08:05→16:52)
[2017-01-02] MEDS: Pantoprazole 40 mg ER24 Tablet PO SCH ×3 (08:30→20:30)
[2017-01-02] MEDS: D5 0.9% NaCl + KCl 20 mEq/L 1,000 ML IV SCH ×2 (08:50→13:42)
[2017-01-02] MEDS: Ertapenem Inj 1,000 MG in 0.9% Sodium Chloride 50 ML IV SCH (09:35)
[2017-01-02] MEDS: risperiDONE 1 mg Tablet PO SCH ×2 (10:36→21:27)
--- NOTE | 2017-01-02 12:49 | PCM.PNMED ---
Subjective Date of Service January 02, 2017 Subjective Patient seen and examined . No significant interval changes . No agitation Afebrile . Patient cannot be interviewed due to severe dementia. Exam Vital Signs Vital Sign - Last Date Time Temp Pulse Resp B/P Pulse Ox O2 Delivery O2 Flow Rate FiO2 01/02/17 12:25 94 20 91 Nasal Cannula 2.00 01/02/17 06:35 36.2 139/74 Intake and Output 01/01/17 01/01/17 01/02/17 Cumulative From/Thru 15:00 23:00 07:00 12/25/16 15:05 - 01/02/17 06:35 Intake Total 836 ml 1075 ml 02835 ml Output Total 1800 ml 450 ml 26528 ml Balance -964 ml 625 ml 1389 ml Intake Oral 250 ml 2486 ml IV Total 836 ml 825 ml 9103 ml Output Urine Total 1800 ml 450 ml 51516 ml # Bowel Movements 0 5 Exam Gen : In bed comfortably. NAD. No apparent distress. HEENT : Sclerae is anicteric Neck: Supple, trach midline Chest : Normal respiratory effort CVS- S1S2 RRR no murmur or gallop Lungs- CTA, o crackles, no wheezing GI : Soft , NABS/NT soft Neuro- cranial nerves II through XII intact to gross examination, non focal Skin- warm and dry, no rashes/lesions/wounds noted IVs and Medications Medications Reviewed: Medications were reviewed in detail Lab and Diagnostics Result Diagram: 01/01/17 0455 01/01/17 0455 X-Rays, CTs and MRIs Date of Service: 12/25/16 1328 PROCEDURE: CT BRAIN WITHOUT CONTRAST ([id number]) IMPRESSION: 1. No intracranial hemorrhage or mass effect. 2. Moderate to severe cerebral volume loss with enlargement of the ventricles slightly out of proportion to the sulci raising the possibility of normal pressure hydrocephalus. Recommend correlation clinically and further evaluation with a nuclear medicine cisternogram if indicated. 3. Suggestion of hypoattenuation in the right brainstem with evaluation limited due to streak artifact. If clinical concern persists, further evaluation may be obtained with MRI. Dictated by: Maico Fuchs M.D. on 12/25/2016 at 14:15 Approved by: Maico Fuchs M.D. on 12/25/2016 at 14:18 Date of Service: 12/25/16 1228 PROCEDURE: X-RAY CHEST ONE VIEW, PORTABLE ([id number]) IMPRESSION: 1. Stable appearance of bilateral opacities and pulmonary vascularity. As previously noted, findings are suggestive of edema with likely superimposed airspace disease such as pneumonia. Dictated by: Irene Sandhu M.D. on 12/25/2016 at 13:10 Approved by: Irene Sandhu M.D. on 12/25/2016 at 13:11 Assessment & Plan 86-year-old female with a history of dementia admitted 12/25 with a picture of sepsis UTI/HAP. Patient has been lethargic and sleepy for most of the day, and when awake does not provide much information to how she is doing. Patients daughter is at bedside 1. Complicated UTI : ESBL UTI- UCX+, Present on admission . CAUTI from chronic indwelling catheter -Seen by ID . On Ertapenem 12/28-01/07 2. HACP ? - On meropenem and vancomycin 12/28 d/c'd by ID . - nasal swab for MRSA. negative 12/29 -Infectious disease consultation 12/28, no further tx for PNA -Inimitably hypoxic on presentation , Patient is now on room air with good saturation 3. Advanced dementia With behavioral disturbances \ -Psychiatry consult and recommendation appreciated -Zyprexa IM when necessary not taking by mouth chronic Medical problems . A. fib-no plan for treatment, - c/w metoprolol tartrate 25mg bid for better oral intake Chronic urinary catheter present on admission Dysphagia and intermittent choking - pt cleared by speech and swallow DNR/DNI Discharge planning . Hospice discussion underway GI Prophylaxis: Not indicated VTE Prophylaxis: Sub-Q Enoxaparin VTE Mechanical Devices: Intermittant Pneumatic CD Resuscitation Status: DNR/DNI:Do Not Resuscitate/Intubate (as documented in recent hospital stay.) Time spent 25 minutes Petey Brumfield MD January 02, 2017 12:49
--- NOTE | 2017-01-02 16:25 | NUR ---
CAPRICE signed by pt's daughter (DPOA)
[2017-01-02] MEDS: Nystatin 100,000 Unit/Gm 15 Gm Powder TOPICAL SCH (16:45)
--- NOTE | 2017-01-02 18:25 | NUR ---
stephanie rash pt has Lara appearing rash stephanie area and buttocks folds, ordered Nystatin Powder
--- NOTE | 2017-01-02 20:43 | NUR ---
Comfort Pt restless and mumbling incoherently. Student nurse assessed pt for possible causes for discomfort: lungs, catheter, headache. Pt's foot had slipped off of pillow and was flexed against side rail. Leg and foot were readjusted on support pillow for pt comfort. Pt discomfort and restlessness subsided. Please ensure pt positioning and comfort will be sustained during turning schedule.
[2017-01-03] VITALS (9 sets, daily range): BP systolic 138–155; BP diastolic 70–81; PULSE 71–105; RESP 20–33; O2SAT 90–96
[2017-01-03] MEDS: D5 0.9% NaCl + KCl 20 mEq/L 1,000 ML IV SCH ×2 (03:10→19:22)
--- NOTE | 2017-01-03 05:23 | NUR ---
Activity/comfort Pt in bed all shift sleeping, able to rouse to take meds and sips of water. Pt did experience episode of anxiety and rec'd ativan IV with + effects. Pt being turned q2hrs, pillows being used and Pt has bootie on left foot/ankle to protect due to foot drop. No redness noted. Pt has audible wheezes ad crackles and rec'd neb tx which was effective. Mouth care and stephanie care done, Solomon draining to gravity, fluids infusing. Care continues.
[2017-01-03] MEDS: Albuterol-Ipratropium 3 mL Inhalation Solution NEB SCH ×4 (06:42→21:00)
[2017-01-03] MEDS: risperiDONE 1 mg Tablet PO SCH ×2 (08:30→20:30)
[2017-01-03] MEDS: Ertapenem Inj 1,000 MG in 0.9% Sodium Chloride 50 ML IV SCH (08:42)
--- NOTE | 2017-01-03 09:30 | NUR ---
LOC Somnolent. Rouses minimally to sternal rub. VSS. Hospitalist and psychiatrist also assessed pt at bedside. Held am Zyprexa per verbal order. All other am medications held at this time; will attempt to admin later if pt more alert.
[2017-01-03] MEDS: Nystatin 100,000 Unit/Gm 15 Gm Powder TOPICAL SCH ×2 (09:51→21:43)
--- NOTE | 2017-01-03 10:13 | PCM.PNMED ---
Subjective Date of Service January 03, 2017 Subjective lethargic/sleeping, minimally arousable - psychiatry at , will plan to wean/ consolidate meds, zyprexa held. reeval for dc tomorrow Exam Vital Signs Vital Sign - Last Date Time Temp Pulse Resp B/P Pulse Ox O2 Delivery O2 Flow Rate FiO2 01/03/17 07:37 81 138/81 01/03/17 07:30 Supplement Oxygen 01/03/17 06:43 20 95 2.00 01/03/17 04:23 36.8 Intake and Output 01/02/17 01/02/17 01/03/17 Cumulative From/Thru 15:00 23:00 07:00 12/25/16 15:05 - 01/03/17 05:40 Intake Total 230 ml 1827 ml 71950 ml Output Total 400 ml 450 ml 42979 ml Balance -170 ml 1377 ml 2596 ml Intake Oral 230 ml 150 ml 2866 ml IV Total 1677 ml 19930 ml Output Urine Total 400 ml 450 ml 27291 ml # Bowel Movements 0 5 Exam Gen : In bed comfortably/sleeping. NAD. No apparent distress. HEENT : Sclerae is anicteric Neck: Supple, trach midline Chest : Normal respiratory effort CVS- S1S2 RRR no murmur or gallop Lungs- CTA, o crackles, no wheezing GI : Soft , NABS/NT soft Neuro- cranial nerves II through XII intact to gross examination, non focal Skin- warm and dry, no rashes/lesions/wounds noted IVs and Medications Medications Reviewed: Medications were reviewed in detail Lab and Diagnostics Result Diagram: 01/01/17 0455 01/01/17 0455 X-Rays, CTs and MRIs Date of Service: 12/25/16 1328 PROCEDURE: CT BRAIN WITHOUT CONTRAST ([id number]) IMPRESSION: 1. No intracranial hemorrhage or mass effect. 2. Moderate to severe cerebral volume loss with enlargement of the ventricles slightly out of proportion to the sulci raising the possibility of normal pressure hydrocephalus. Recommend correlation clinically and further evaluation with a nuclear medicine cisternogram if indicated. 3. Suggestion of hypoattenuation in the right brainstem with evaluation limited due to streak artifact. If clinical concern persists, further evaluation may be obtained with MRI. Dictated by: Maico Fuchs M.D. on 12/25/2016 at 14:15 Approved by: Maico Fuchs M.D. on 12/25/2016 at 14:18 Date of Service: 12/25/16 1228 PROCEDURE: X-RAY CHEST ONE VIEW, PORTABLE ([id number]) IMPRESSION: 1. Stable appearance of bilateral opacities and pulmonary vascularity. As previously noted, findings are suggestive of edema with likely superimposed airspace disease such as pneumonia. Dictated by: Irene Sandhu M.D. on 12/25/2016 at 13:10 Approved by: Irene Sandhu M.D. on 12/25/2016 at 13:11 Assessment & Plan 86-year-old female with a history of dementia admitted 12/25 with a picture of sepsis UTI/HAP. Patient has been lethargic and sleepy for most of the day, and when awake does not provide much information to how she is doing. Patients daughter is at bedside 1. Complicated UTI : ESBL UTI- UCX+, Present on admission . CAUTI from chronic indwelling catheter -Seen by ID . On Ertapenem - last dose of 10d course today 01/03 - still lethargic 2. HCAP - unlikely - On meropenem and vancomycin 12/28 d/c'd by ID . - nasal swab for MRSA. negative 12/29 -Infectious disease consultation 12/28, no further tx for PNA -Inimitably hypoxic on presentation , Patient is now on room air with good saturation 3. Advanced dementia With behavioral disturbances \ -Psychiatry consult and recommendation appreciated -Zyprexa IM when necessary not taking by mouth, held today -has risperdal BID, will wean and switch to PM meds chronic Medical problems . A. fib-no plan for treatment, - c/w metoprolol tartrate 25mg bid for better oral intake Chronic urinary catheter present on admission Dysphagia and intermittent choking - pt cleared by speech and swallow DNR/DNI Discharge planning . Hospice to be initiated after dc to [facility] Pain Evaluation: Adequate Pain Control GI Prophylaxis: Not indicated VTE Prophylaxis: Sub-Q Enoxaparin VTE Mechanical Devices: Intermittant Pneumatic CD Resuscitation Status: DNR/DNI:Do Not Resuscitate/Intubate (as documented in recent hospital stay.) Time spent 35 minutes spent with eval and Petey Ponce DO January 03, 2017 10:13
[2017-01-03] MEDS: Pantoprazole 40 mg ER24 Tablet PO SCH ×2 (10:19→20:02)
--- NOTE | 2017-01-03 14:30 | NUR ---
NUTRITION FOLLOW-UP: ASSESS: Pt is an 86yo F admitted for pneumonia with high risk of aspiration. Pt has been evaluated by ST and placed on dysphagia mechanical diet with max assist. Pt has severe dementia and PO intake remains poor; is able to tolerate ensure and some foods, i.e. mashed potatoes. Pt has been more somnolent today. Psych following. Pt is DNR/DNI and daughter agreeable to hospice PMHX: Dementia, UTI LABS: Reviewed. K 3.4, Business Planner .44, glu 126, alb 3.0 MEDS: Reviewed. GI: BMx1 12/31 SKIN: Heath 13 CURRENT WTS: 69kg, BMI 28.7kg/m2, IBW 47.7kg, admit wt 72kg DIET: Dysphagia mechanical, thin liquids. PO bites-10%. EST. NEEDS: Kcals:1725-2070kcal/day (25-30kcal/kg) Pro: 70-80g/day (1.0-1.2g/kg) NUTRITION DIAGNOSIS: 1.) Chew/swallow difficulty related to dementia as evidence by variable mentation and need for dysphagia mechanical diet per ST. --PERSISTS 2.) Inadequate oral intake related to altered mentation as evidenced by po intake 0-50% x 7d and decreasing weight.--PERSISTS NUTRITION INTERVENTION: 1.) Diet per ST 2.) Continue Ensure on all trays, continue to encourage PO intake when appropriate MONITOR / EVAL: PO, wt, labs, GI, POC, nutrition status. Will continue to monitor per high nutrition risk guidelines.
--- NOTE | 2017-01-03 17:00 | NUR ---
spiritual care: routine caring visit. pt joined with singing familiar hymns and reciting of classic prayers/scriptures. pt seemed to calm down saundra when singing.
[2017-01-03] MEDS ORDERED: Furosemide 10 mg/mL 4 mL Inj IVPUSH ONE (20:05)
[2017-01-03] MEDS ORDERED: KCl 40 mEq/D5W 500 mL 40 MEQ in IV Premix 1 EACH IV ONE (20:20)
[2017-01-03] MEDS ORDERED: risperiDONE 1 mg Tablet PO PRN (23:40)
--- NOTE | 2017-01-03 23:46 | PCM.PNPSY ---
Subjective Date of Service January 03, 2017 Subjective The patient had reportedly been agitated overnight, but after receiving lorazepam 1mg was quite somnolent and could not be roused. Risperidone 1mg was held at that time. Current Medications Current Medications Furosemide 40 mg 40 mg ONCE ONCE IVPUSH Last administered on 01/03/17 21:43; Admin Dose 40 MG; Start 01/03/17 at 20:05; Stop 01/03/17 at 20:06; Status DC Nystatin 1 applic BID TOPICAL Last administered on 01/03/17 21:43; Admin Dose 1 APPLIC; Start 01/02/17 at 15:33 Potassium Chloride In D5W/ Premix 500 ml @ 125 mls/hr Q4H ONCE IV Last administered on 01/03/17 21:43; Admin Dose 125 MLS/HR; Start 01/03/17 at 20:20 ; Stop 01/04/17 at 00:19 Mental Status Exam Vital Signs Vital Signs Date Time Temp Pulse Resp B/P Pulse Ox O2 Delivery O2 Flow Rate FiO2 01/03/17 19:47 99 33 96 Nasal Cannula 2.00 01/03/17 19:40 Supplement Oxygen 01/03/17 19:37 37.1 105 22 151/77 90 Nasal Cannula 2.00 Appearance: Unkept Attitude: Uncooperative Behavior: Other (unable to rouse) Affect: Other Speech Production: Muter Thought Content: Other (unable to assess) Consciousness: Somnolent Orientation: Unable to assess Memory: Untestable Estimate Intellectual Function: Unable to assess Attention/Concentration & Cogn: Impaired Insight: Unable to assess Judgement: Unable to assess Result Diagram: 01/01/17 0455 01/01/17 0455 Mental Health Plan Patient is 86 y.o. female with dementia with worsening mental status in the context of UTI/sepsis. Patient has been treated with a combination of fluoxetine and olanzapine prior to admission. Low dose olanzapine does not appear to have been helpful with agitation, nor has high dose fluoxetine. Give age and medical status, patient may benefit from switch from olanzapine to risperidone to better manage psychosis and agitation. The additional high dose fluoxetine could increase her risk of serotonin syndrome and could benefit from reduction and potential switch to, or addition of buspirone. Patient appears to have responded to discontinuation of olanzapine and initiation of risperidone but now is rather somnolent after low-dose lorazepam. Risperdal held this am, with plan to consolidate for tomorrow. 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 Will discontinue fluoxetine and when more alert, will restart at lower dose or switch to buspirone 15mg bid which may be address anxiety and agitation. 2. Change risperidone to 2mg at bedtime starting tomorrow. Could be switched to liquid if swallowing becomes problematic. 3. Discontinue IM olanzapine; risperidone 0.5mg po q8hr prn severe agitation. 4. Will continue to follow until consistently stable presentation. 5. Appreciate the opportunity to work with you on this patient. Please feel free to contact psychiatry with further questions. Tanvir Arias MD January 03, 2017 23:46
[2017-01-04] VITALS (10 sets, daily range): BP systolic 99–152; BP diastolic 61–80; PULSE 60–125; RESP 18–33; O2SAT 90–97
--- NOTE | 2017-01-04 02:41 | NUR ---
Respiratory RT in room to assess patient at beginning of shift while giving neb treatment. RR noted to be up in the 30's and crackles noted in patients bases. RT expressed concern of fluid overload. Dr. Loya paged @ [phone]. New order received to stop IV fluids and give Lasix 40mg IVP once and give a one time K-rider. Patient placed on remote telemetry prior to administration per protocol. Diuresising well, pale urine output noted in Solomon bag.
--- NOTE | 2017-01-04 06:52 | PCM.PNMED ---
Subjective Date of Service January 04, 2017 Subjective overnight noted ot have some desaturations and supplemental o2 requirements inc - was given lasix 40mg. yesterday, psych meds titrated and olanzapine dc'd. no reports of cp/fever - await am labs Exam Vital Signs Vital Sign - Last Date Time Temp Pulse Resp B/P Pulse Ox O2 Delivery O2 Flow Rate FiO2 01/04/17 05:47 36.5 93 20 129/71 91 Nasal Cannula 2.00 Intake and Output 01/03/17 01/03/17 01/04/17 Cumulative From/Thru 15:00 23:00 07:00 12/25/16 15:05 - 01/04/17 06:30 Intake Total 981 ml 731 ml 78074 ml Output Total 700 ml 2260 ml 22709 ml Balance 281 ml -1529 ml 1348 ml Intake Oral 100 ml 100 ml 3066 ml IV Total 881 ml 631 ml 11015 ml Output Urine Total 700 ml 2260 ml 60474 ml # Bowel Movements 0 0 5 Exam Gen : In bed comfortably/sleeping. NAD. No apparent distress. HEENT : Sclerae is anicteric Neck: Supple, trach midline Chest : Normal respiratory effort CVS- S1S2 RRR no murmur or gallop Lungs- CTA, basilar crackles, no sig wheezing GI : Soft , NABS/NT soft Neuro- cranial nerves II through XII intact to gross examination, non focal Skin- warm and dry, no rashes/lesions/wounds noted IVs and Medications Medications Reviewed: Medications were reviewed in detail Lab and Diagnostics Result Diagram: 01/01/17 0455 01/01/17 0455 X-Rays, CTs and MRIs Date of Service: 12/25/16 1328 PROCEDURE: CT BRAIN WITHOUT CONTRAST ([id number]) IMPRESSION: 1. No intracranial hemorrhage or mass effect. 2. Moderate to severe cerebral volume loss with enlargement of the ventricles slightly out of proportion to the sulci raising the possibility of normal pressure hydrocephalus. Recommend correlation clinically and further evaluation with a nuclear medicine cisternogram if indicated. 3. Suggestion of hypoattenuation in the right brainstem with evaluation limited due to streak artifact. If clinical concern persists, further evaluation may be obtained with MRI. Dictated by: Maico Fuchs M.D. on 12/25/2016 at 14:15 Approved by: Maico Fuchs M.D. on 12/25/2016 at 14:18 Date of Service: 12/25/16 1228 PROCEDURE: X-RAY CHEST ONE VIEW, PORTABLE ([id number]) IMPRESSION: 1. Stable appearance of bilateral opacities and pulmonary vascularity. As previously noted, findings are suggestive of edema with likely superimposed airspace disease such as pneumonia. Dictated by: Irene Sandhu M.D. on 12/25/2016 at 13:10 Approved by: Irene Sandhu M.D. on 12/25/2016 at 13:11 Assessment & Plan 86-year-old female with a history of dementia admitted 12/25 with a picture of sepsis UTI/HAP. Patient has been lethargic and sleepy for most of the day, and when awake does not provide much information to how she is doing. Patients daughter is at bedside Complicated UTI : ESBL UTI- UCX+, Present on admission . CAUTI from chronic indwelling catheter -Seen by ID . Ertapenem - finished last dose of 10d course on 01/03 - still lethargic HCAP - unlikely - On meropenem and vancomycin 12/28 d/c'd by ID . - nasal swab for MRSA. negative 12/29 -Infectious disease consultation 12/28, no further tx for PNA -Inimitably hypoxic on presentation , Patient is now on room air with good saturation Acute Hypoxia with tachypnea - likely 2/2 to flash pulm edema - s/p lasix 40mg overnihgt, may give one more dose today - follow renal fxn, cont supplemental oxygen for goal saturaitons above 92% - daily wts fluctuating, not sure if completely accurate but IVF held today Advanced dementia With behavioral disturbances \ -Psychiatry consult and recommendation appreciated -Zyprexa IM when necessary not taking by mouth, held today -has risperdal BID, will wean and switch to PM meds chronic Medical problems . A. fib-no plan for treatment, - c/w metoprolol tartrate 25mg bid for better oral intake Chronic urinary catheter present on admission Dysphagia and intermittent choking - pt cleared by speech and swallow DNR/DNI Discharge planning . Hospice to be initiated after dc to [facility] Pain Evaluation: Adequate Pain Control GI Prophylaxis: Not indicated VTE Prophylaxis: Sub-Q Enoxaparin VTE Mechanical Devices: Intermittant Pneumatic CD Resuscitation Status: DNR/DNI:Do Not Resuscitate/Intubate (as documented in recent hospital stay.) Time spent 30 minutes spent with eval and mgmt Petey Pulido DO January 04, 2017 06:52
[2017-01-04 07:24] LABS: BASOPHILS % (AUTO) 0.2 % (0-3); EOSINOPHILS % (AUTO) 1.3 % (0-5); MONOCYTES % (AUTO) 7.8 % (4-12); Mean Corpuscular Hemoglobin 29.9 pg (27.0-35.0); Mean Corpuscular Volume 90.5 fL (81-100); NEUTROPHILS % (AUTO) 84.4 % (40-74); Platelet Count 375 bil/L (150-400)
[2017-01-04] MEDS: Albuterol-Ipratropium 3 mL Inhalation Solution NEB SCH ×4 (07:37→19:36)
[2017-01-04] MEDS: Nystatin 100,000 Unit/Gm 15 Gm Powder TOPICAL SCH ×2 (07:57→20:27)
[2017-01-04] MEDS ORDERED: Furosemide 10 mg/mL 10 mL Inj IVPUSH ONE (08:10)
[2017-01-04] MEDS: Pantoprazole 40 mg ER24 Tablet PO SCH ×2 (10:03→19:54)
--- NOTE | 2017-01-04 10:33 | NUR ---
Cardiac/resp/LOC Tachypneic, audible wheezes and crackles. Lasix given per order. Has diuresed ~600cc urine via Solomon. On telemetry for K rider yesterday. Per monitor technician: Sinus tach 110-130s, PACs. MD discontinued tele. Pt awake, briefly tearful, but easily redirected with song and prayer. Does not follow direction. Does not cough, unable to clear secretions. Does not swallow water. NPO for now for increased aspiration risk. PO meds held, hospitalist aware.
--- NOTE | 2017-01-04 10:36 | PCM.CONPAL ---
Date of Service January 04, 2017 Date of Hospital Admission: December 25, 2016 at 17:05 Date of Palliative Consult: January 04, 2017 Requesting Provider: Petey Pulido DO Reason Palliative Care Consult: Goals of Care Discussion Reason for Consultation Palliative Care received verbal order from Dr Pulido 01/04/17 to assist with goals of care. Patient is an 86 year old woman who was readmitted 12/25/16. She was just at [facility] 12/19-12/24/16. Patient resides at [facility]. Ирина Uribe (daughter and HCPOA) [phone] Hospital Unit @time of consult: Orthopedic/Surgical Care (rm [id number]) Palliative Care Recommendation Summary of palliative recommendations: -Symptom management (Pain/other): Per Attending and psychiatrist. -DPOA/Advanced Directives/POLST: 1. Code Status: DNR/DNI 2. DPOA, prior paperwork in place and copy on chart: daughter Ирина Uribe 3. Advanced Directives, prior paperwork in place and copy on chart, signed by pt in 2007. She didn't want artificial nutrition/hydration if terminal. Family Meeting 01/04 with dtr Ирина and Drs. Nice/Rory at bedside. Pt asleep (and not capacitated due to dementia). Dtr has already signed with hospice for services at [facility] when her mother returns there. Dtr signed POLST today: DNR/DNI/comfort care/no returns to hospital/use antibiotics if appropriate and can be given po--don't use if can only administer IV/no tube feeding artifically. No IV hydration. -Family/emotional support: excellent. Dtr is clear in what her parents wanted. She says her parents both began to get demented in 2007-, not paying their bills, getting car tags renewed but covering for each other. She tried to keep them in their home for as long as she could. Her father first in 01/2015. Then Ирина took her mom into her home until 05/2015 when she placed her in [facility]. It has been difficult to watch her mother deteriorate. Ирина reports that her mother had no prior mental health issues but became very anxious after her . Nitza seemed to be aware of his absence but couldn't comprehend why he was no longer around. She would be yelling out at night, clingy when someone visited, shaking in her bed at times due to generalized fearfulness/anxiety. She has been bedbound and incontinent of B&B for last 4 months. Ирина wants simple comfort care and hand-feeding for her mother in [facility] on discharge. She is mentally prepared that Nitza will not be coming back to hospital with the next infection. If oral antibiotics don't work, then she will get pain medication to manage the discomfort. -Spiritual support: Hinduism Goals are clear. POLST in chart. Palliative Care will sign off. Thank you for referral. Problems: Resuscitation Status Resuscitation Status: DNR/DNI:Do Not Resuscitate/Intubate (as documented in recent hospital stay.) POLST Updates/Changes POLST Last Review Date: January 04, 2017 Antibiotics: Determine Use or Limitations Artificially Admin Nutrition: No Artifical Nutrition by Tube POLST Discussed with: Health Care Agent (DPOAHC) (daughter Ирина) POLST Review Outcome: New Form Completed . Advanced Care Planning Address: POLST Pt History History of Present Illness 86-year-old female with a history of advanced dementia with chronic AF not on anticoagulation, chronic indwelling urinary catheter, admitted 12/25 and is being treated for sepsis due to ESBL UTI. Hospital Course: She has finished her antibiotic course of ertapenem for ESBL UTI. She has a chronic indwelling catheter and will be at risk for recurrent UTIs. On 01/03 She needed diuresis with lasix due to flash pulmonary edema from fluid overload, IVF are being held. She has some dysphagia but was cleared by speech for diet of mechanical textures, thin liquids. psychiatrist Dr. Arias saw her for agitation/anxiety and he stopped the patient's home psych meds of olanzapine and now has her on risperidone 2mg at bedtime and 0.5mg q 8hrs. She has not received any risperidone in the last 24 hours ( unclear why). Today is Hospital Day 10. Past Medical History Significant PMH Noted: Dementia with anxiety, recurrent UTIs, HTN, Questionable congestive heart failure glaucoma Surgical History As per daughter: Heart valve transplant, atrial Bilateral hip transplant Appendectomy Possible cholecystectomy Exploratory laparoscopy for lysis of adhesions Family History Unable to obtain due to patient's dementia Medications Current Medications: Current Medications Nystatin 1 applic BID TOPICAL Last administered on 01/04/17t 07:57; Admin Dose 1 APPLIC; Start 01/02/17 at 15:33 Risperidone 2 mg HS PO; Start 01/04/17 at 21:00 Risperidone 0.5 mg Q8H PRN PO; Start 01/03/17 at 23:40 Scheduled Acetaminophen (Acetaminophen) 500 Mg Tablet 500 MG PO BID Aspirin (Aspirin) 81 Mg Tablet 81 MG PO DAILY Cephalexin (Keflex) 500 Mg Capsule 500 MG PO BID Cholecalciferol (Vitamin D3) (Vitamin D3) 2,000 Unit Tablet 2,000 UNIT PO DAILYWL Cholestyramine/Sugar Powder (Cholestyramine/Sugar Powder) 378 Gm Powder 1 DOSE PO QAM Fluoxetine (Fluoxetine) 40 Mg Capsule 80 MG PO DAILY Lactobacillus Combo No.11 (Probiotic) 1 Each Cap.sprink 1 EACH PO QAM Latanoprost (Latanoprost) 2.5 Ml Drops 1 GTT BOTH_EYES HS Lorazepam (Lorazepam Oral Concentrate) 2 Mg/1 Ml Oral.conc 0.5 MG PO QID at 7am, 11a,3p,8p Metoprolol Succinate ER (Metoprolol Succinate ER) 50 Mg Tab.er.24h 50 MG PO DAILY Nitrofurantoin Macrocrystal (Nitrofurantoin Macrocrystal) 50 Mg Capsule 50 MG PO DAILY Olanzapine (Olanzapine) 20 Mg Tablet 10 MG PO DAILYWL Olanzapine (Olanzapine) 10 Mg Tablet 5 MG PO BID Omeprazole (Omeprazole) 20 Mg Capsule.dr 20 MG PO BID Potassium Chloride (Potassium Chloride) 10 Meq Tab.er.prt 10 MEQ PO every other day TAKE WITH FOOD Tamsulosin (Flomax) 0.4 Mg Capsule 0.4 MG PO DAILY Scheduled PRN Acetaminophen (Acetaminophen) 325 Mg Capsule 650 MG PO Q4H PRN PRN For Pain Albuterol Neb Soln (Albuterol Neb Soln) 1.25 Mg/3 Ml Vial.neb 1.25 MG INHALATION Q4H PRN PRN For Shortness of Breath Albuterol Sulfate (Ventolin HFA Inhaler) 200 Puff/18 Gm Inhaler 2 PUFF INH QID PRN PRN For Wheezing Bisacodyl (Dulcolax) 5 Mg Tablet.dr 5 MG PO DAILY PRN PRN For Constipation Fluconazole (Fluconazole) 150 Mg Tablet 150 MG PO once a month PRN PRN yeast infection Loperamide (Loperamide) 2 Mg Capsule 2 MG PO Q4H PRN PRN For Diarrhea or Loose Stool Lorazepam (Lorazepam Oral Concentrate) 2 Mg/1 Ml Oral.conc 0.5 MG PO q4 hours PRN PRN For Anxiety Ondansetron (Ondansetron) 4 Mg Tablet 4 MG PO q6 hours PRN PRN For Nausea Objective Findings Exam Vital Sign - Last Date Time Temp Pulse Resp B/P Pulse Ox O2 Delivery O2 Flow Rate FiO2 01/04/17 08:31 37.1 119 33 148/64 90 Room Air 01/04/17 07:37 2.00 Intake and Output 01/03/17 01/03/17 01/04/17 Cumulative From/Thru 15:00 23:00 07:00 12/25/16 15:05 - 01/04/17 06:30 Intake Total 981 ml 731 ml 20146 ml Output Total 700 ml 2260 ml 68774 ml Balance 281 ml -1529 ml 1348 ml Intake Oral 100 ml 100 ml 3066 ml IV Total 881 ml 631 ml 81240 ml Output Urine Total 700 ml 2260 ml 23623 ml # Bowel Movements 0 0 5 General: Minimally responsive, Person, No acute distress HEENT: Atraumatic, PERRLA, EOMI, Scleral Anicteric, Mucous Membranes Dry, Other (bitemporal wasting, mouth breathing) Heart: Regular Rate/Rhythm, No Murmurs/Rubs/Gallops Lungs: Clear to Auscultation, Diminished Abdomen: Benign Extremities: Warm, No Edema Lab/Diagnostics Lab and Imaging results reviewed in detail in EMR. Time spent Total time 70 minutes; >50% face to face with patient and/or family, providing counselling regarding plans and recommendations, and in care coordination with his/her medical teams. I also spent an additional 35 minutes counseling for advanced care planning with the patient/the patients family/the surrogate decision maker. Amy Nice MD January 04, 2017 10:36
--- NOTE | 2017-01-04 10:54 | NUR ---
Palliative Care Palliative Care received verbal order from Dr Pulido 01/04/17 to assist with goals of care. Patient is an 86 year old woman who was readmitted 12/25/16. She was just at [facility] 12/19-12/24/16. Patient resides at [facility]. Ирина Uribe (daughter) [phone] Palliative Care to follow. Maddie Buenrostro
--- NOTE | 2017-01-04 14:21 | NUR ---
CAPRICE signed by DPOA. Ning Eckert, ASPHALT BLENDER
--- NOTE | 2017-01-04 14:26 | NUR ---
Social Work- Readiness for Discharge Data: EMR reviewed. Pt is on day 10 of hospitalization for ALOC, HCAP. Pt is not medically stable for discharge, anticipate tomorrow. Pt's DPOA has signed consents for hospice. BOARD HAMMER OPERATOR spoke with Hospitalist regarding pt's discharge. MD is agreeable to pt discharging tomorrow morning. MD to complete discharge orders by 8 am. BOARD HAMMER OPERATOR spoke with Donna at [facility] who states that journeyman lineman will be meeting pt at [facility] tomorrow 01/05 at 10 am. BOARD HAMMER OPERATOR spoke with Ketty at [facility] regarding pt's discharge timeline. Ketty agreeable to this. Ketty requested updated clinicals be faxed [phone]. UR Specialist to fax clinicals to Ketty. Floor RN updated regarding pt's morning discharge. BOARD HAMMER OPERATOR spoke with pt's daughter Ирина at bedside regarding discharge plan. Ирина agreeable to plan. UR Specialist is reviewing pt's eligibility for BLS transport, BOARD HAMMER OPERATOR discussed with Ирина that although we review for medical necessity for BLS we cannot guarantee that transportation will be covered by insurance. Ирина stated understanding. Ирина will come to the hospital tomorrow morning prior to pt's discharge. Pt to discharge to [facility] to open with [facility] tomorrow morning, transportation at 9 am via BLS. SW will continue to follow. Assessment: Pt who will open with [facility] the 01/05 at 10 am Plan: Pt to discharge to [facility] to open with [facility] tomorrow morning, transportation at 9 am via BLS. All updated and agreeable to plan. SW will continue to follow. RAZA Van
--- NOTE | 2017-01-04 15:57 | NUR ---
Arranged BLS transport via [facility] for 9AM, patient is returning to [facility] to open with [facility] the [facility] at 10AM. Updated TRAINING DEVELOPMENT MANAGER
--- NOTE | 2017-01-04 19:31 | PCM.PNPSY ---
Subjective Date of Service January 04, 2017 Subjective The patient was quite somnolent, did not receive risperidone overnight. Patient somewhat agitated during the day, but reduced from admission. Current Medications Current Medications Furosemide 60 mg ONCE ONCE IVPUSH Last administered on 01/04/17 08:49; Admin Dose 60 MG; Start 01/04/17 at 08:10; Stop 01/04/17 at 08:11; Status DC Furosemide 40 mg 40 mg ONCE ONCE IVPUSH Last administered on 01/03/17 21:43; Admin Dose 40 MG; Start 01/03/17 at 20:05; Stop 01/03/17 at 20:06; Status DC Potassium Chloride In D5W/ Premix 500 ml @ 125 mls/hr Q4H ONCE IV Last administered on 01/03/17 21:43; Admin Dose 125 MLS/HR; Start 01/03/17 at 20:20 ; Stop 01/04/17 at 00:19; Status DC Mental Status Exam Vital Signs Vital Signs Date Time Temp Pulse Resp B/P Pulse Ox O2 Delivery O2 Flow Rate FiO2 01/04/17 17:42 84 24 97 Nasal Cannula 3.50 01/04/17 15:15 Supplement Oxygen 01/04/17 13:06 36.7 69 20 152/80 92 Nasal Cannula 3.00 01/04/17 11:51 63 24 94 Nasal Cannula 3.50 Appearance: Unkept Attitude: Uncooperative Behavior: Other (unable to rouse) Affect: Other Speech Production: Muter Thought Content: Other (unable to assess) Consciousness: Somnolent Orientation: Unable to assess Memory: Untestable Estimate Intellectual Function: Unable to assess Attention/Concentration & Cogn: Impaired Insight: Unable to assess Judgement: Unable to assess Result Diagram: 01/04/17 0708 01/04/17 0708 Mental Health Plan Patient is 86 y.o. female with dementia with worsening mental status in the context of UTI/sepsis. Patient has been treated with a combination of fluoxetine and olanzapine prior to admission. Low dose olanzapine does not appear to have been helpful with agitation, nor has high dose fluoxetine. Give age and medical status, patient may benefit from switch from olanzapine to risperidone to better manage psychosis and agitation. The additional high dose fluoxetine could increase her risk of serotonin syndrome and was therefore discontinued. Should the patient's anxiety return, in the context of dementia, buspirone may be beneficial. Patient will be going to hospice care, still somnolent, will reduce scheduled risperidone. If continues to be sedated would discontinue as agitation appears to have reduced. 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 Fluoxetine discontinued and when more alert, would switch to buspirone 15mg bid which may better address anxiety and agitation. 2. Change risperidone to 1mg at bedtime. Could be switched to liquid if swallowing becomes problematic. 3. Risperidone 0.5mg po q8hr prn severe agitation. 4. Will continue to follow until consistently stable presentation. 5. Please feel free to contact psychiatry with further questions. Tanvir Arias MD January 04, 2017 19:31
[2017-01-04] MEDS ORDERED: risperiDONE 1 mg Tablet PO SCH (21:00)
[2017-01-04] MEDS ORDERED: risperiDONE 2 mg Tablet PO SCH (21:00)
[2017-01-05 00:33] VITALS: BP 113/70; PULSE 66; RESP 16; O2SAT 90
--- NOTE | 2017-01-05 02:39 | NUR ---
PO medications All PO medications held this shift r/t high aspiration risk. No s/sx of pain, FELDT score=0. Resting with eyes closed during Q1hour roundings. Q2hour turns to prevent b/d.
[2017-01-05 05:27] VITALS: BP 110/58; PULSE 95; RESP 18; O2SAT 94
[2017-01-05 05:37] LABS: BASOPHILS % (AUTO) 0.2 % (0-3); EOSINOPHILS % (AUTO) 0.7 % (0-5); MONOCYTES % (AUTO) 7.8 % (4-12); Mean Corpuscular Hemoglobin 29.9 pg (27.0-35.0); Mean Corpuscular Volume 90.1 fL (81-100); NEUTROPHILS % (AUTO) 85.6 % (40-74); Platelet Count 419 bil/L (150-400)
[2017-01-05] MEDS: Albuterol-Ipratropium 3 mL Inhalation Solution NEB SCH (06:00)
--- NOTE | 2017-01-05 06:51 | PCM.DIMED ---
Discharge Instructions Date of Service January 05, 2017 Dates of Hospitalization December 25, 2016 at 17:05 Discharge Diagnosis Discharge Diagnosis 86-year-old female with a history of dementia admitted 12/25 with a picture of sepsis UTI/HAP. Patient has been lethargic and sleepy for most of the day, and when awake does not provide much information to how she is doing. Patients daughter is at bedside Complicated UTI : ESBL UTI- UCX+, Present on admission . CAUTI from chronic indwelling catheter -Seen by ID . Ertapenem - finished last dose of 10d course on 01/03 - still lethargic Acute Hypoxia with tachypnea - likely 2/2 to flash pulm edema - s/p lasix 40mg overnihgt, with does of 60 mg on 01/04, discharging to memory care and subsequent hospice this AM - follow renal fxn, cont supplemental oxygen for goal saturaitons above 92% and comfort - daily wts fluctuating, not sure if completely accurate but IVF held Advanced dementia With behavioral disturbances A. fib-no plan for treatment, - c/w metoprolol tartrate 25mg bid for better oral intake Chronic urinary catheter present on admission Dysphagia and intermittent choking - pt cleared by speech and swallow Medication Instructions Fluoxetine discontinued and when more alert, switchted to buspirone 15mg bid which may better address anxiety and agitation. Change risperidone to 1mg at bedtime given somnolence. Could be switched to liquid if swallowing becomes problematic. Risperidone 0.5mg po q8hr prn severe agitation. Test Results CXR: IMPRESSION: 1. Slightly increased pulmonary edema as well as medial bibasilar patchy airspace opacities suggestive of aspiration given clinical history. Dictated by: Maico Fuchs M.D. on 12/31/2016 at 11:55 Diet Other (dysphagia mechanical) Activity Other (to memory care/hospice) Call your provider Other (as necessary to optimize comfort) Patient Instructions Follow-up plan Pt to be set up with hospice after discharge this AM to [facility] with psychiatric medication recommendations as listed Follow-up with PCP in: Other (as deemed necessary based on goals of care) Petey Pulido DO January 05, 2017 06:49
[2017-01-05] MEDS ORDERED: RISP1TAB90 PO ×2 (06:59)
[2017-01-05] MEDS ORDERED: POLY17PO6 PO (06:59)
[2017-01-05 07:58] VITALS: BP 144/69; PULSE 92; O2SAT 91
[2017-01-05] MEDS: Pantoprazole 40 mg ER24 Tablet PO SCH (08:01)
[2017-01-05] MEDS: Nystatin 100,000 Unit/Gm 15 Gm Powder TOPICAL SCH (08:07)
--- NOTE | 2017-01-05 09:05 | NUR ---
Social Work- Discharge Data: EMR reviewed. Pt is on day 11 of hospitalization for ALOC, HCAP. Pt is medically stable for discharge, orders are complete and active. BLS transportation is scheduled for 900 via Ambulance. T/C to Meaghan at [facility] who is agreeable to pt opening at 10 am. T/C to [facility] verifying pt's discharge plan. Pt to discharge to [facility] to open with [facility] at 10 am, transportation at 9 am via BLS. All updated and agreeable to plan. No additional discharge needs identified. Assessment: Pt who will open with [facility] 01/05 at 10 am Plan: Pt to discharge to [facility] to open with [facility] at 10 am, transportation at 9 am via BLS. All updated and agreeable to plan. No other discharge needs identified. Ning Eckert MSW
--- NOTE | 2017-01-05 09:30 | NUR ---
Discharge Pt discharged to [facility] via ambulance at 0915 hrs. PIV removed intact. VSS. No c/o pain. All personal possessions sent with pt. Discharge instructions given to pt's daughter.
--- NOTE | 2017-01-05 10:09 | PCM.DC.MED ---
Discharge Summary Date of Service January 05, 2017 Dates of Hospitalization Date of Hospital Admission December 25, 2016 at 17:05 Date of Discharge: January 05, 2017 Providers: Admitting Physician: Ruben Lei MD Primary Care Physician: Gris Martino Attending Physician: Ruben Lei MD Diagnosis at Time of Discharge Diagnosis at Time of Discharge 86-year-old female with a history of dementia admitted 12/25 with a picture of sepsis UTI/HAP. Patient has been lethargic and sleepy for most of the day, and when awake does not provide much information to how she is doing. Patients daughter is at bedside Complicated UTI : ESBL UTI- UCX+, Present on admission . CAUTI from chronic indwelling catheter -Seen by ID . Ertapenem - finished last dose of 10d course on 01/03 - still lethargic Acute Hypoxia with tachypnea - likely 2/2 to flash pulm edema - s/p lasix 40mg overnihgt, with does of 60 mg on 01/04, discharging to memory care and subsequent hospice this AM - follow renal fxn, cont supplemental oxygen for goal saturaitons above 92% and comfort - daily wts fluctuating, not sure if completely accurate but IVF held Advanced dementia With behavioral disturbances A. fib-no plan for treatment, - c/w metoprolol tartrate 25mg bid for better oral intake Chronic urinary catheter present on admission Dysphagia and intermittent choking - pt cleared by speech and swallow Consultations Infectious disease, Dr. Rich Procedures XRay, CTs & MRIs Date of Service: 12/25/16 1328 PROCEDURE: CT BRAIN WITHOUT CONTRAST ([id number]) IMPRESSION: 1. No intracranial hemorrhage or mass effect. 2. Moderate to severe cerebral volume loss with enlargement of the ventricles slightly out of proportion to the sulci raising the possibility of normal pressure hydrocephalus. Recommend correlation clinically and further evaluation with a nuclear medicine cisternogram if indicated. 3. Suggestion of hypoattenuation in the right brainstem with evaluation limited due to streak artifact. If clinical concern persists, further evaluation may be obtained with MRI. Dictated by: Maico Fuchs M.D. on 12/25/2016 at 14:15 Approved by: Maico Fuchs M.D. on 12/25/2016 at 14:18 Date of Service: 12/25/16 1228 PROCEDURE: X-RAY CHEST ONE VIEW, PORTABLE ([id number]) IMPRESSION: 1. Stable appearance of bilateral opacities and pulmonary vascularity. As previously noted, findings are suggestive of edema with likely superimposed airspace disease such as pneumonia. Dictated by: Irene Sandhu M.D. on 12/25/2016 at 13:10 Approved by: Irene Sandhu M.D. on 12/25/2016 at 13:11 Brief History History of present illness as per admitting physician 86-year-old female with a history of advanced dementia with chronic AF not on anticoagulation, chronic indwelling urinary catheter, admitted 12/25 and is being treated for sepsis due to ESBL UTI. Hospital Course 86-year-old female with a history of dementia admitted 12/25 with a picture of sepsis UTI/HAP. Patient has been lethargic and sleepy for most of the day, and when awake does not provide much information to how she is doing. Patients daughter is at bedside Hospital Course: She has finished her antibiotic course of ertapenem for ESBL UTI. She has a chronic indwelling catheter and will be at risk for recurrent UTIs. On 01/03 She needed diuresis with lasix due to flash pulmonary edema from fluid overload, IVF are being held. She has some dysphagia but was cleared by speech for diet of mechanical textures, thin liquids. psychiatrist Dr. Arias saw her for agitation/anxiety and he stopped the patient's home psych meds of olanzapine and now has her on risperidone 2mg at bedtime and 0.5mg q 8hrs. She has not received any risperidone in the last 24 hours ( unclear why). Complicated UTI : ESBL UTI- UCX+, Present on admission . CAUTI from chronic indwelling catheter -Seen by ID . Ertapenem - finished last dose of 10d course on 01/03 - still lethargic HCAP - unlikely - On meropenem and vancomycin 12/28 d/c'd by ID . - nasal swab for MRSA. negative 12/29 -Infectious disease consultation 12/28, no further tx for PNA -Inimitably hypoxic on presentation , Patient is now on room air with good saturation Acute Hypoxia with tachypnea - likely 2/2 to flash pulm edema - Status post diuresis as noted above, exam mildly improved today - follow renal fxn, cont supplemental oxygen for goal saturaitons above 92% - daily wts fluctuating, not sure if completely accurate but IVF held today Advanced dementia With behavioral disturbances \ -Psychiatry consult and recommendation appreciated as noted above and hospital course -Zyprexa IM when necessary not taking by mouth, held today -has Risperdal 1 mg daily at bedtime and Risperdal 0.5 mg every 8 as needed for agitation -Also was started on BuSpar 15 mg twice a day for anxiety and agitation as well chronic Medical problems . A. fib-no plan for treatment, - c/w metoprolol tartrate 25mg bid for better oral intake Chronic urinary catheter present on admission Dysphagia and intermittent choking - pt cleared by speech and swallow DNR/DNI Discharge planning appreciated Hospice to be initiated after dc to [facility] Exam Vital Signs (Last) Date Time Temp Pulse Resp B/P Pulse Ox O2 Delivery O2 Flow Rate FiO2 01/05/17 08:09 Supplement Oxygen 01/05/17 07:58 92 144/69 91 3.00 01/05/17 05:27 37.0 18 Exam Gen : In bed comfortably/sleeping. NAD. No apparent distress. HEENT : Sclerae is anicteric Neck: Supple, trach midline Chest : Normal respiratory effort CVS- S1S2 RRR no murmur or gallop Lungs- CTA, basilar crackles, no sig wheezing GI : Soft , NABS/NT soft Neuro- cranial nerves II through XII intact to gross examination, non focal Skin- warm and dry, no rashes/lesions/wounds noted Test 12/25/16 12:28 12/25/16 12:55 12/26/16 02:20 12/28/16 09:45 Urine Color Yellow (YELLOW) Urine Appearance Hazy (CLEAR,HAZY) Urine pH 6.0 (5.0-8.0) Urine Specific [place] 1.025 (1.003-1.035) Urine Protein 30mg/dL (NEG,TRACE) Urine Glucose (UA) Negativemg/dL (NEGATIVE) Urine Ketones 15mg/dL (NEGATIVE) Urine Occult Blood Trace (NEGATIVE) Urine Nitrite Negative (NEGATIVE) Urine Bilirubin Negative (NEGATIVE) Urine Urobilinogen Normalmg/dL (NORMAL) Urine Leukocyte Esterase Small (NEGATIVE) Urine RBC 0-2/hpf (0-2) Urine WBC 11-50/hpf (0-5) Urine Epithelial Cells Occasional/hpf (NONE-MOD) Urine Crystals None seen (NONE SEEN) Urine Bacteria Moderate/hpf (NONE-FEW) Urine Hyaline Casts None/lpf (NONE) Urine Granular Casts None seen (NONE SEEN) Urine Waxy Casts None seen (NONE SEEN) Urine Red Blood Cell Casts None seen (NONE SEEN) Urine White Blood Cell Casts None seen (NONE SEEN) Urine Mucus Present (None Seen) Urine Trichomonas None seen (NONE SEEN) Urine Yeast None (NONE SEEN) Urinalysis Comment None Urine Culture Reflexed Indicated Lactic Acid Level 0.8mmol/L (0.4-2.0) Pro-B-Type Natriuretic Peptide 662pg/mL (0-738) Troponin T 0.021ug/L (0.0-0.011) Vancomycin Level Trough 11.9mcg/mL Test 12/31/16 04:55 01/01/17 04:55 01/05/17 04:51 Procalcitonin 0.08ng/mL (0.00-0.08) Phosphorus Level 2.6mg/dL (2.5-4.9) Magnesium Level 2.0mg/dL (1.6-2.6) Total Bilirubin 0.4mg/dL (0.0-1.2) Aspartate Amino Transf (AST/SGOT) 14U/L (0-50) Alanine Aminotransferase (ALT/SGPT) 9U/L (0-32) Alkaline Phosphatase 58U/L (25-165) Total Protein 6.1g/dL (6.4-8.4) Albumin 3.0g/dL (3.4-5.0) White Blood Count 12.9th/mm3 (3.8-10.1) Red Blood Count 4.05mil/mm3 (3.90-5.20) Hemoglobin 12.1g/dL (12.0-15.6) Hematocrit 36.5% (35.0-46.0) Mean Corpuscular Volume 90.1fL (81-100) Mean Corpuscular Hemoglobin 29.9pg (27.0-35.0) Mean Corpuscular Hemoglobin Concent 33.2% (32.0-37.0) Red Cell Distribution Width 13.6% (12.3-15.4) Platelet Count 419bil/L (150-400) Neutrophils (%) (Auto) 85.6% (40-74) Lymphocytes (%) (Auto) 5.4% (14-46) Monocytes (%) (Auto) 7.8% (4-12) Eosinophils (%) (Auto) 0.7% (0-5) Basophils (%) (Auto) 0.2% (0-3) Sodium Level 138mEq/L (134-144) Potassium Level 3.7mEq/L (3.5-5.2) Chloride Level 96mEq/L (97-108) Carbon Dioxide Level 25mmol/L (18-29) Blood Urea Nitrogen 37mg/dL (8-27) Creatinine 0.59mg/dL (0.57-1.00) Estimat Glomerular Filtration Rate 139mL/min (>59) Glucose Level 137mg/dL (60-99) Calcium Level 9.9mg/dL (8.5-10.1) Discharge Medications Discharge Medications Acetaminophen (Acetaminophen) 500 Mg Tablet 500 MG PO BID (Reported) Cholecalciferol (Vitamin D3) (Vitamin D3) 2,000 Unit Tablet 2,000 UNIT PO DAILYWL (Reported) Cholestyramine/Sugar Powder (Cholestyramine/Sugar Powder) 378 Gm Powder 1 DOSE PO QAM (Reported) Lactobacillus Combo No.11 (Probiotic) 1 Each Cap.sprink 1 EACH PO QAM (Reported ) Latanoprost (Latanoprost) 2.5 Ml Drops 1 GTT BOTH_EYES HS (Reported) Lorazepam (Lorazepam Oral Concentrate) 2 Mg/1 Ml Oral.conc 0.5 MG PO QID at 7am, 11a,3p,8p (Reported) Metoprolol Succinate ER (Metoprolol Succinate ER) 50 Mg Tab.er.24h 50 MG PO DAILY (Reported) Omeprazole (Omeprazole) 20 Mg Capsule.dr 20 MG PO BID (Reported) Risperidone (Risperdal) 1 Mg Tablet 1 MG PO HS Prescribed by: NOÉ PULIDO, DO As needed Acetaminophen (Acetaminophen) 325 Mg Capsule 650 MG PO Q4H PRN PRN For Pain ( Reported) Albuterol Neb Soln (Albuterol Neb Soln) 1.25 Mg/3 Ml Vial.neb 1.25 MG INHALATION Q4H PRN PRN For Shortness of Breath (Reported) Albuterol Sulfate (Ventolin HFA Inhaler) 200 Puff/18 Gm Inhaler 2 PUFF INH QID PRN PRN For Wheezing (Reported) Bisacodyl (Dulcolax) 5 Mg Tablet.dr 5 MG PO DAILY PRN PRN For Constipation ( Reported) Loperamide (Loperamide) 2 Mg Capsule 2 MG PO Q4H PRN PRN For Diarrhea or Loose Stool (Reported) Lorazepam (Lorazepam Oral Concentrate) 2 Mg/1 Ml Oral.conc 0.5 MG PO q4 hours PRN PRN For Anxiety (Reported) Ondansetron (Ondansetron) 4 Mg Tablet 4 MG PO q6 hours PRN PRN For Nausea ( Reported) Polyethylene Glycol 3350 (Miralax) 17 Gm Powd.pack 17 GM PO DAILY PRN PRN For Constipation Prescribed by: NOÉ PULIDO DO Risperidone (Risperdal) 1 Mg Tablet 0.5 MG PO Q8H PRN PRN Severe agitation Prescribed by: NOÉ PULIDO DO Additional med instructions Fluoxetine discontinued and when more alert, switchted to buspirone 15mg bid which may better address anxiety and agitation. Change risperidone to 1mg at bedtime given somnolence. Could be switched to liquid if swallowing becomes problematic. Risperidone 0.5mg po q8hr prn severe agitation. Followup Plan Disposition: T [facility] care and transition to hospice Follow-up plan Pt to be set up with hospice after discharge this AM to [facility] with psychiatric medication recommendations as listed Discharge Diet: Other (dysphagia mechanical) Discharge Activity: Other (to memory care/hospice) Follow-up with PCP in: Other (as deemed necessary based on goals of care) Time spent 35 minutes spent with evaluation and management including discharge Noé Pulido DO January 05, 2017 10:09
--- NOTE | 2017-01-05 15:10 | NUR ---
Palliative care note D/A: POLST completed for pt on 01/04/17 which indicates that pt has advanced dementia, recurrent uti's and family wants comfort care at the facility with no returns to the hospital. Pt code status is now DNAR with comfort measures only, to determine us of antibiotics when infections occurs, with comfort as the goal as well as no medically assisted nutrition by tube. POLST is dated 01/04/17 and signed by Ирина Uribe and Dr. Nice. POLST scanned to [facility]. P: No further need for PC services. Margaret BALLARDSW, CCM
== END 2017-01-05 09:14 | DRG 698 ==
LOC: EDUNIT# 12:13 → SED 12:13 → EDBD 12:13 → OSC 17:05
PROVIDERS: ADMIT Family Medicine; ATTEND Family Medicine
DX: T83.511A Infection and inflammatory reaction due to indwelling urethral catheter, initial encounter (principal); A41.9 Sepsis, unspecified organism; F01.51 Vascular dementia, unspecified severity, with behavioral disturbance; Z87.440 Personal history of urinary (tract) infections; R79.89 Other specified abnormal findings of blood chemistry; Z66 Do not resuscitate; Z96.643 Presence of artificial hip joint, bilateral; R13.10 Dysphagia, unspecified; R33.9 Retention of urine, unspecified; F32.89 Other specified depressive episodes; F41.9 Anxiety disorder, unspecified; Y73.8 Miscellaneous gastroenterology and urology devices associated with adverse incidents, not elsewhere classified; R09.02 Hypoxemia; I48.2 Chronic atrial fibrillation